=== PATIENT | female | born 1955 | race Caucasian/White ===

== ENCOUNTER 2020-05-01 14:42 | Outpatient (CLI) | payer MEDICARE, SELFPAY ==
--- NOTE | ~2020-05-01 | MM_ITS ---
EXAMINATION: MM screening cole BI w consuelo HISTORY: Screening mammogram TECHNIQUE: Craniocaudal and mediolateral oblique 3-D tomosynthesis images were obtained and synthetic 2-D images were generated. CAD analysis was submitted and interpreted. COMPARISON: No prior mammogram is available for comparison at this institution. BREAST PARENCHYMAL COMPOSITION: There are scattered areas of fibroglandular density. FINDINGS: Status post bilateral augmentation mammoplasty. There is no evidence of suspicious mass, ca lcification, or architectural distortion to suggest malignancy in either breast. There has been no betancur spicious interval change. IMPRESSION: 1. No mammographic evidence of malignancy. 2. Recommend routine screening mammography in one year. BI-RADS Category 1: Negative Reviewed, dictated and finalized at location A.
--- NOTE | ~2020-05-01 | XR_ITS ---
XR knee LT min 4V DATE: 05/01/2020 15:51 INDICATION: Bilateral knee pain TECHNIQUE: 4 views COMPARISON: None FINDINGS: Status post medial compartment joint replacement. Moderate osteopenia. No fracture or dislocation or joint effusion. No periosteal reaction or bone destruction, radiopaque intra-articular loose body or chondrocalcinosis. IMPRESSION: Osteopenia Status post medial compartment joint replacement Reviewed, dictated and finalized at location A.
--- NOTE | ~2020-05-01 | XR_ITS ---
XR knee RT min 4V DATE: 05/01/2020 15:51 INDICATION: Bilateral knee pain TECHNIQUE: 5 views COMPARISON: None FINDINGS: Status post right total knee joint replacement with patellar resurfacing. There are multiple calcified loose bodies overlying the knee joint. Diffuse osteopenia. No fracture or dislocation or significant joint effusion is evident. No periosteal reaction or bone d estruction. IMPRESSION: Status post total knee joint replacement Multiple calcified loose bodies in the knee joint Osteopenia Reviewed, dictated and finalized at location A.
== END 2020-05-01 14:43 | disposition home or self-care (01) ==
PROVIDERS: PCP Chiropractor; Visit Provider Chiropractor
DX: Z12.31 Encounter for screening mammogram for malignant neoplasm of breast (principal); M85.862 Other specified disorders of bone density and structure, left lower leg; M85.861 Other specified disorders of bone density and structure, right lower leg; M23.41 Loose body in knee, right knee; Z96.653 Presence of artificial knee joint, bilateral
CPT/HCPCS: 73564; 77063; 77067

== ENCOUNTER → 2021-01-20 10:06 | Outpatient (CLI) | payer MEDICARE, SELFPAY ==
--- NOTE | ~2021-01-20 | MR_ITS ---
. EXAMINATION: MR lumbar spine wo con DATE: 01/20/2021 11:02 INDICATION: Lumbar radiculopathy. Low back pain. TECHNIQUE: Magnetic resonance imaging (MRI) of the lumbar spine was performed without intravenous con trast. Sequences included sagittal T2-weighted FSE, sagittal T2-weighted FS FSE, sagittal T1-weighted FSE, and axial T2-weighted FSE. COMPARISON: None FINDINGS: There is 10 degrees dextroscoliosis of lumbar spine. There is 3 mm anterolisthesis of L2 on L3 and L3 on L4. Vertebral body heights are normal. There is mildly decreased disc height at L2-L3 a nd severely decreased disc height at L3-L4 and L4-L5. The distal spinal cord signal intensity is norm al. The conus medullaris is at T12. The following disc levels are specifically discussed: L1-L2: The disc is bulging. There is moderate right and mild left facet joint osteoarthritis. There i s mild right neural foraminal stenosis. There is mild central canal stenosis. L2-L3: The disc is bulging. There is severe bilateral facet joint osteoarthritis. There is mild bilat eral neural foraminal stenosis. There is mild central canal stenosis. L3-L4: The disc is bulging with superimposed left central extrusion with 14 mm superior extension to the pedicular level. There is severe bilateral facet joint osteoarthritis. There is mild right and mo derate left neural foraminal stenosis. There is mild central canal stenosis. L4-L5: The disc is bulging with superimposed left central extrusion. There is severe right and mild l eft facet joint osteoarthritis. There is moderate bilateral neural foraminal stenosis. There is mild central canal stenosis. L5-S1: The disc is bulging. There is severe right and mild left facet joint osteoarthritis. There is mild right neural foraminal stenosis. There is mild central canal stenosis. IMPRESSION: 1. Severe lumbar spondylosis. 2. Lumbar dextroscoliosis. Reviewed, dictated and finalized at location A. E ATTENDANT
== END ==
PROVIDERS: Visit Provider Nurse Practitioner Adult Health
DX: M47.26 Other spondylosis with radiculopathy, lumbar region (principal)
CPT/HCPCS: 72148

== ENCOUNTER → 2021-11-05 15:08 | Outpatient (CLI) | payer MEDICARE, SELFPAY ==
--- NOTE | ~2021-11-05 | US_ITS ---
EXAMINATION: US pelvic complete DATE: 11/05/2021 16:13 INDICATION: Postmenopausal uterine bleeding. TECHNIQUE: Multiple transabdominal sonographic images of the pelvis were obtained. COMPARISON: Lumbar spine MRI 01/20/2021 FINDINGS: The uterus measures 7.0 x 3.5 x 4.2 cm. There is a 4.4 x 2.5 cm myometrial calcification in the uteru s, consistent with a fibroid. There is no free fluid in the pelvis. The endometrial complex measures 3 mm in thickness. The ovaries are not visualized. IMPRESSION: 1. Normal endometrial complex. 2. Uterine fibroid. Reviewed, dictated and finalized at location B. 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
== END ==
PROVIDERS: PCP Chiropractor; Visit Provider Chiropractor
DX: N93.8 Other specified abnormal uterine and vaginal bleeding (principal); D25.9 Leiomyoma of uterus, unspecified
CPT/HCPCS: 76856

== ENCOUNTER → 2021-12-07 11:01 | Outpatient (CLI) | payer OTHER, SELFPAY ==
--- NOTE | ~2021-12-07 | MR_ITS ---
EXAMINATION: MR cervical spine wo con DATE: 12/07/2021 11:57 INDICATION: Unstable balance. Low back pain. TECHNIQUE: Magnetic resonance imaging (MRI) of the cervical spine was performed without intravenous c ontrast. Sequences included sagittal T2-weighted FSE, sagittal STIR FSE, sagittal T1-weighted FSE, ax ial MERGE, and axial T2-weighted FSE. COMPARISON: None FINDINGS: There is 4 mm posterior subluxation of C1 with respect to C2. The anterior arch of C1 is no t well visualized and may be small or ununited. There is 3 mm anterolisthesis of C4 on C5 and 2 mm an terolisthesis of C6 on C7 and C7 on T1. Vertebral body heights are normal. There is severely decrease d disc height at C3-C4, C5-C6, and C6-C7 and mildly decreased disc height at C4-C5. The spinal cord s ignal intensity is normal. The following disc levels are specifically discussed: C2-C3: The disc does not extend beyond the endplate margin. There is no uncovertebral joint osteoarth ritis. There is severe bilateral facet joint osteoarthritis. There is mild right neural foraminal jerry nosis. There is no central canal stenosis. C3-C4: The disc is bulging. There is moderate right and severe left uncovertebral joint osteoarthriti s. There is severe bilateral facet joint osteoarthritis. There is mild right and severe left neural f oraminal stenosis. There is mild central canal stenosis. C4-C5: The disc is bulging. There is mild bilateral uncovertebral joint osteoarthritis. There is ana re bilateral facet joint osteoarthritis. There is mild bilateral neural foraminal stenosis. There is mild central canal stenosis. C5-C6: The disc is bulging. There is severe bilateral uncovertebral joint osteoarthritis. There is se mary bilateral facet joint osteoarthritis. There is severe bilateral neural foraminal stenosis. There is mild central canal stenosis. C6-C7: The disc is bulging. There is severe bilateral uncovertebral joint osteoarthritis. There is se mary bilateral facet joint osteoarthritis. There is mild bilateral neural foraminal stenosis. There i s mild central canal stenosis. C7-T1: The disc does not extend beyond the endplate margin. There is mild bilateral uncovertebral lobo nt osteoarthritis. There is severe bilateral facet joint osteoarthritis. There is mild bilateral neur al foraminal stenosis. There is no central canal stenosis. IMPRESSION: 1. Severe cervical spondylosis. Reviewed, dictated and finalized at location A. 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
== END ==
PROVIDERS: PCP Internal Medicine; Visit Provider Neurological Surgery
DX: R26.89 Other abnormalities of gait and mobility (principal); M47.812 Spondylosis without myelopathy or radiculopathy, cervical region
CPT/HCPCS: 72141

== ENCOUNTER → 2021-12-07 11:03 | Outpatient (CLI) | payer OTHER, SELFPAY ==
--- NOTE | ~2021-12-07 | US_ITS ---
EXAMINATION: US transvaginal DATE: 12/07/2021 12:28 INDICATION: Dysfunctional uterine bleeding Comparison:Ultrasound dated 11/05/2021 TECHNIQUE: Multiple transabdominal and endovaginal sonographic images of the pelvis performed. FINDINGS: The uterus measures 6.6 x 3.4 x 4.2 cm. There is a 1.4 cm hyperechoic uterine fibroid. The endometrial complex measures 4 mm. The right ovary measures 1.3 x 1.8 x 1.7 cm and the left ovary is not visualized. There are small fol licles in each ovary. Normal doppler signal in both ovaries. There is free fluid in the pelvis posterior to the uterus. There are no abnormal masses seen on eith er side. IMPRESSION: 1. Uterine fibroid with hyperechoic echotexture measuring up to 1.4 cm. Reviewed, dictated and finalized at location B. SMAN
== END ==
PROVIDERS: Visit Provider Chiropractor
DX: N93.8 Other specified abnormal uterine and vaginal bleeding (principal); D25.9 Leiomyoma of uterus, unspecified
CPT/HCPCS: 76830

== ENCOUNTER 2022-02-08 08:33 | Outpatient (CLI) | payer OTHER, SELFPAY ==
--- NOTE | 2022-02-08 09:01 | ECHO_ITS ---
Patient Info Name: Helena Calvo Age: 67 years : 1955 Gender: Female Ht: 63 in Wt: 106 lbs BSA: 1.46 m2 HR: 71 bpm BP: 102 / 68 mmHg Technical Quality: Fair Exam Date: 02/08/2022 9:10 AM Exam Location: [facility] [place] Patient Status: Outpatient Admit Date: 02/08/2022 Staff Ordering Physician: Fidencio Obregon DO Optical Lab Technician: Teresita Amezcua RDCS Attending Provider: Fidencio Obregon DO Referring Physician: Sabas CAMPBELL; Exam Type: CA echo doppler color flow Study Info Indications R01.1 - Cardiac murmur, unspecified Complete two-dimensional, color flow and Doppler transthoracic echocardiogram is performed. Summary 1. Complete two-dimensional, color flow and Doppler transthoracic echocardiogram is performed. 2. Left ventricular chamber dimension is normal. 3. Left ventricular systolic function is normal, estimated at 55-60%. 4. There is mildly increased left ventricular wall thickness. 5. The left ventricular diastolic function is grade I diastolic dysfunction. 6. E/e' 9 is minimally elevated. 7. Global longitudinal strain is mildly abnormal at -16.3%. 8. There is moderate aortic valve sclerosis. 9. There is very mild aortic valve stenosis with a peak velocity of 173 cm/s, mean gradient of 7 mmHg, and aortic valve area of 2.3 cm2. 10. The mitral valve has moderately calcified annulus. 11. There is trace mitral valve regurgitation. 12. There is mild tricuspid valve regurgitation. 13. No pulmonary hypertension, estimated pulmonary arterial systolic pressure is 28 mmHg. 14. There is trace pulmonic regurgitation. Left Ventricle E/e' 9 is minimally elevated. Global longitudinal strain is mildly abnormal at -16.3%. Left ventricular chamber dimension is normal. Left ventricular systolic function is normal, estimated at 55-60%. There is mildly increased left ventricular wall thickness. The left ventricular diastolic function is grade I diastolic dysfunction. Right Ventricle Right ventricular systolic function is normal and with normal TAPSE 1.8 cm. Right ventricular chamber dimension is normal. Left Atria Left atrial chamber dimension is normal. Right Atria Right atrial chamber dimension is normal. Aortic Valve There is very mild aortic valve stenosis with a peak velocity of 173 cm/s, mean gradient of 7 mmHg, and aortic valve area of 2.3 cm2. The aortic valve is trileaflet. There is moderate aortic valve sclerosis. There is no aortic valve regurgitation. Pulmonic Valve There is trace pulmonic regurgitation. Mitral Valve The mitral valve has moderately calcified annulus. There is no mitral valve stenosis. There is trace mitral valve regurgitation. Tricuspid Valve There is mild tricuspid valve regurgitation. No pulmonary hypertension, estimated pulmonary arterial systolic pressure is 28 mmHg. Pericardium/Pleural There is no pericardial effusion. Inferior Vena Cava Normal inferior vena cava with >50% collapse upon inspiration consistent with normal right atrial pressure, 5 mmHg. Aorta The aortic root size at the sinus of Valsalva is normal. Left Ventricular Outflow Tract Name Value Normal LVOT 2D LVOT Diameter 2.0 cm LVOT Doppler
== END 2022-02-08 08:34 | disposition home or self-care (01) ==
PROVIDERS: Visit Provider Internal Medicine
DX: R01.1 Cardiac murmur, unspecified (principal); Z86.79 Personal history of other diseases of the circulatory system; I08.3 Combined rheumatic disorders of mitral, aortic and tricuspid valves
CPT/HCPCS: 93306

== ENCOUNTER 2022-03-25 08:20 | Outpatient (CLI) | payer OTHER, SELFPAY ==
--- NOTE | ~2022-03-25 | MM_ITS ---
EXAMINATION: MM scrn cole implant BI w consuelo HISTORY: Screening mammogram TECHNIQUE: Craniocaudal and mediolateral oblique 3-D tomosynthesis images with implant displacement a nd synthetic 2-D images were generated. Craniocaudal and mediolateral oblique views of the breasts wi thout implant displacement were obtained using full field digital mammography. CAD analysis was submi tted and interpreted. COMPARISON: 05/01/2020 BREAST PARENCHYMAL COMPOSITION: There are scattered areas of fibroglandular density. FINDINGS: There is no evidence of suspicious mass, calcification, or architectural distortion to sugg est malignancy in either breast. There has been no suspicious interval change. IMPRESSION: 1. No mammographic evidence of malignancy. 2. Recommend routine screening mammography in one year. BI-RADS Category 1: Negative Reviewed, dictated and finalized at location A.
== END 2022-03-25 08:21 | disposition home or self-care (01) ==
LOC: ANHIMG 08:22
PROVIDERS: PCP Internal Medicine; Visit Provider Internal Medicine
DX: Z12.31 Encounter for screening mammogram for malignant neoplasm of breast (principal)
CPT/HCPCS: 77063; 77067

== ENCOUNTER 2022-06-14 13:51 | Outpatient (CLI) | payer OTHER, SELFPAY ==
[2022-06-14 15:02] LABS: Basophils Percent Auto 0.2 % (0.2-1.2); Eosinophils Absolute Auto 0.3 K/mm3 (0-0.3); Eosinophils Percent Auto 2.9 % (0-4.4); Hematocrit 31.5 % (37.0-47.0); Hemoglobin 9.8 g/dL (12.0-15.0); Immature Granulocyte Absolute 0.06 K/mm3 (0.00-0.031); Immature Granulocyte Percent A 0.7 % (0-0.5); Lymphocytes Absolute Auto 1.14 K/mm3 (0.9-3.2); Lymphocytes Percent Auto 13.2 % (18.3-44.2); Mean Corpuscular HGB Conc 31.1 g/dl (32-36); Mean Corpuscular Hemoglobin 29.7 pg (26-34); Mean Corpuscular Volume 95.5 fl (80-100); Mean Platelet Volume 10.6 fl (7.4-10.4); Monocytes Absolute Auto 0.4 K/mm3 (0.1-0.6); Monocytes Percent Auto 4.6 % (2.6-8.5); Neutrophils Absolute Auto 6.8 K/mm3 (1.3-6.7); Neutrophils Percent Auto 78.4 % (45.5-73.1); Platelet Count Result 265 k/mm3 (150-375); Red Cell Distribution Width 15.8 % (11.5-14.5); White Blood Count 8.6 K/mm3 (4.5-10.0)
[2022-06-14 15:08] LABS: Alanine Aminotransferase 21 U/L (6-35); Alkaline Phosphatase 180 U/L (38-126); Anion Gap 11 mmol/L (8-16); Aspartate Amino Transferase 36 U/L (14-36); Bilirubin,Total 0.3 mg/dL (0.2-1.3); Blood Urea Nitrogen 16 mg/dL (7-17); Calcium 9.3 mg/dL (8.4-10.2); Carbon Dioxide 25 mmol/L (22-30); Chloride 100 mmol/L (98-107); Cholesterol 154 mg/dL (0-200); Estimated Glomerular Filt Rate 45; Glucose 110 mg/dL (65-110); HDL Direct 56 mg/dL; Potassium 4.1 mmol/L (3.4-5.0); Sodium 136 mmol/L (137-145); Triglycerides 122 mg/dL (<150)
[2022-06-14 15:19] LABS: LDL Cholesterol Direct 52 mg/dL
[2022-06-14 15:29] LABS: Vitamin D 25 Hydroxy 79.9 ng/mL
[2022-06-14 16:15] LABS: Folic Acid 5.9 ng/mL (2.76->20)
== END 2022-06-14 13:52 | disposition home or self-care (01) ==
PROVIDERS: PCP Internal Medicine; Visit Provider Nurse Practitioner
DX: R53.83 Other fatigue (principal); Z13.220 Encounter for screening for lipoid disorders; Z13.29 Encounter for screening for other suspected endocrine disorder; E55.9 Vitamin D deficiency, unspecified
CPT/HCPCS: 36415; 80053; 80061; 82306; 82607; 82746; 84443; 85025

== ENCOUNTER 2022-07-26 12:05 | Outpatient (CLI) | payer OTHER, SELFPAY ==
[2022-07-26 12:39] LABS: Basophils Percent Auto 0.3 % (0.2-1.2); Eosinophils Absolute Auto 0.2 K/mm3 (0-0.3); Eosinophils Percent Auto 2.4 % (0-4.4); Hematocrit 28.6 % (37.0-47.0); Hemoglobin 9.1 g/dL (12.0-15.0); Immature Granulocyte Absolute 0.03 K/mm3 (0.00-0.031); Immature Granulocyte Percent A 0.3 % (0-0.5); Lymphocytes Absolute Auto 1.61 K/mm3 (0.9-3.2); Lymphocytes Percent Auto 16.3 % (18.3-44.2); Mean Corpuscular HGB Conc 31.8 g/dl (32-36); Mean Corpuscular Hemoglobin 29.6 pg (26-34); Mean Corpuscular Volume 93.2 fl (80-100); Mean Platelet Volume 10.4 fl (7.4-10.4); Monocytes Absolute Auto 0.6 K/mm3 (0.1-0.6); Monocytes Percent Auto 5.7 % (2.6-8.5); Neutrophils Absolute Auto 7.4 K/mm3 (1.3-6.7); Platelet Count Result 244 k/mm3 (150-375); Red Blood Count 3.07 M/mm3 (4.2-5.4); Red Cell Distribution Width 16.6 % (11.5-14.5); White Blood Count 9.9 K/mm3 (4.5-10.0)
[2022-07-26 12:41] LABS: Anion Gap 9 mmol/L (8-16); Blood Urea Nitrogen 14 mg/dL (7-17); Calcium 8.9 mg/dL (8.4-10.2); Carbon Dioxide 25 mmol/L (22-30); Chloride 104 mmol/L (98-107); Estimated Glomerular Filt Rate > 60; Glucose 104 mg/dL (65-110); Potassium 4.1 mmol/L (3.4-5.0); Sodium 138 mmol/L (137-145)
[2022-07-26 14:01] LABS: Folic Acid > 20.0 ng/mL (2.76->20)
[2022-07-26 14:24] LABS: Iron 21 ug/dL (37-170)
[2022-07-26 14:28] LABS: Percent Iron Saturation 8 % (20-50)
== END 2022-07-26 12:06 | disposition home or self-care (01) ==
PROVIDERS: PCP Internal Medicine; Visit Provider Nurse Practitioner
DX: D64.9 Anemia, unspecified (principal); N18.31 Chronic kidney disease, stage 3a; E03.9 Hypothyroidism, unspecified; M05.79 Rheumatoid arthritis with rheumatoid factor of multiple sites without organ or systems involvement; M79.9 Soft tissue disorder, unspecified
CPT/HCPCS: 36415; 80048; 82607; 82728; 82746; 83540; 83550; 84443; 85025

== ENCOUNTER 2022-08-05 15:45 | Outpatient (NON) | payer OTHER, SELFPAY | END 2022-08-05 15:46 | disposition home or self-care (01) | LOC: ANHGOSHLAB 15:46 | PROVIDERS: PCP Internal Medicine; Visit Provider Internal Medicine | DX: L60.8 Other nail disorders (principal) | CPT/HCPCS: 87101; 87107; 97110 ==

== ENCOUNTER 2022-08-30 11:00 | Outpatient (RCR) | payer OTHER, SELFPAY ==
--- NOTE | 2022-07-08 11:28 | PTOPEVAL1 ---
Evaluation Information Assessment Status Evaluation Diagnosis scoliosis, dorsalgia Subjective Information chronic back pain; no recent injury to back; following care with: mc kay stitcher and neurosurgeon is seeing for neck and low back; Reported Pain Level Pain Score 3: Self Report Additional Pain Score Comments when pain comes on, have to lie down for 2 hours to ease it; sleeping is OK-on side R/L or back; also reports neck pain into UE's with numbness/ tingling; trying not to take pain meds, make sleepy and stay in her system too long; takes over the counter naproxen Oswestry self assessment functional score of 46% limitation in activity level Assessment PT Clinical Summary Helena has the diagnosis of dorsalgia; she reports chronic neck and back pain, radicular into R hip, with decreased walking, sitting and activity level with home tasks. Self assessment with Oswestry is 46% limitation in activity level. With the evaluation, she has poor spinal position with rounding and rotation--R posterior; decreased strength of trunk and hips and tightness of quad/ anterior hip B. Skilled PT services are indicated for modalities to decrease pain, therapeutic exercises to increase strength and flexiblity of trunk and hips , with education for correct posture and HEP. Plan of Care Interventions Electrical Stimulation,Hot Pack/Cold Pack,Manual Therapy,Patient/Caregiver Educati,Therapeutic Activities,Therapeutic Exercise PT Services Indicated Yes Treatment Frequency and 2x/wk for 4 weeks Duration These treatments will address the objective and functional deficits as defined above. The patient will be advanced safely and appropriately in order for the patient to progress towards his/her prior level of function. Additional exercises will be introduced and as well as a comprehensive home exercise program upon discharge, if needed, ?to ensure carryover of functional gains achieved in the clinic. This treatment plan has been reviewed and agreement upon by the patient.
--- NOTE | 2022-07-25 16:16 | PCPTNOTE ---
Patient called & cancelled scheduled appointment this date due to not being able to make it to her appointment in time.
--- NOTE | 2022-07-29 15:23 | PCPTNOTE ---
Patient called & cancelled scheduled appointment this date due to family emergency.
--- NOTE | 2022-08-02 10:21 | PTOPPROG ---
Assessment and note entered by Hanna Avery, PT Evaluation Information Assessment Status Re-evaluation Diagnosis scoliosis, dorsalgia Subjective Information Helena reports: have had a crazy week due to uncle hospitalized, have not done the exercises this past week; overall feel of my back is better; went to pain management dr- did a test for nerve block and it made the pain in her hips worse; going to get a back brace next week--custom scoliosis brace; want to continue therapy; pain range of 0-6/10: increase lower thoracic and lumbar pain with sitting 30 min, walking 1 hour, bending forward; decrease pain by changing position, lie on back with heating pad and 2 naproxen and better in about 30 min; also reports pain in R knee--s/p previous surgeries; Oswestry self assessment functional activity score with 22% limitation; also have pain on bottom of both feet--plantar fasciitis, hurt when walk; Assessment PT Clinical Summary Helena has received 5 PT sessions for back pain. She called/canceled 2 appointments due to family member hospitalized. Compared to the initial evaluation: pain rating is the same at the low rating 0/10 and decreased by 1 at the worst rating from 7 to 6/10; reported sitting, walking and time of rest to ease pain have improved; increase flexibility of L hip and trunk, without an increase in pain with movements; increased strength of trunk and hips; self assessment Oswestry improved 2%; The goals were partially achieved. Continue PT treatments to further decrease her pain and education for progression of HEP and pain management techniques. Plan of Care Interventions Electrical Stimulation,Hot Pack/Cold Pack,Manual Therapy,Neuro Re-education,Patient/Caregiver Education,Therapeutic Activities,Therapeutic Exercise PT Services Indicated Yes Treatment Frequency and 2x/wk for 4 weeks Duration These treatments will address the objective and functional deficits as defined above. The patient will be advanced safely and appropriately in order for the patient to progress towards his/her prior level of function. Additional exercises will be introduced and as well as a comprehensive home exercise program upon discharge, if needed, ?to ensure carryover of functional gains achieved in the clinic. This treatment plan has been reviewed and agreement upon by the patient.
--- NOTE | 2022-08-14 10:08 | PCPTNOTE ---
Patient called & cancelled scheduled appointment this date due to being ill.
--- NOTE | 2022-08-30 11:38 | PTOPDC ---
Assessment and note entered by Hanna Avery, PT Evaluation Information Assessment Status Discharge Diagnosis scoliosis, dorsalgia Subjective Information Helena reports: improved in that can sit at the counter and eat dinner without more pain; have a scoliosis brace now, wear 30-45 min, 3x/day, usually comfortable, but hurts little by end of wearing time; was told by dr to build up to wearing it 4 total hours/day; do some of the exercises at home; agrees to discharge from PT services; Reported Pain Level Pain Score Self Report back pain Additional Pain Score Comments pain range of 0-3/10; increase pain with extended periods of activity --with home tasks- 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 Compared to the last reevaluation: pain rating has decreased from 0-6/10 to 0-3/10; Oswestry self assessment score is 2% worse; no longer has pain with standing trunk side bending to the R and supine L hip IR motion; strength has increased slightly of hips; flexibility of hips and trunk is about the same; HEP has been progressed, but she reports sometimes do exercises. Reinforced importance of exercises. She reports she has an exercise ball and stationary bicycle at home that she will start using. The goals were partially met, Discharge PT services, and to continue with HEP. Plan of Care PT Services Indicated No
== END 2022-09-02 10:22 | disposition home or self-care (01) ==
LOC: ANHPT 11:00
PROVIDERS: PCP Internal Medicine; Referring Provider Clinical Nurse Specialist; Visit Provider Clinical Nurse Specialist
DX: M41.9 Scoliosis, unspecified (principal); M54.9 Dorsalgia, unspecified
CPT/HCPCS: 97014; 97110; 97112; 97140; 97162; G0283

== ENCOUNTER → 2022-11-12 10:03 | Outpatient (CLI) | payer OTHER, SELFPAY ==
--- NOTE | ~2022-11-12 | MR_ITS ---
MRI of the thoracic spine Clinical History: Back pain Technique: Axial T2-weighted and gradient images, and sagittal T1-weighted, T2-weighted, and STIR ada ges were acquired. Findings: No fracture or subluxation seen in the thoracic spine. Vertebral bodies maintain normal hei ght and alignment. No bone marrow signal abnormality seen. No significant disc bulge or herniation seen. No spinal canal stenosis or cord compression identified . No epidural mass or collection. No abnormal signal seen in the spinal cord. Paravertebral soft tissue s are unremarkable. Impression: No significant abnormality seen. Reviewed, dictated and finalized at location . CHIPPER Impression: No significant abnormality seen.
== END ==
PROVIDERS: PCP Internal Medicine; Visit Provider Clinical Nurse Specialist
DX: M54.6 Pain in thoracic spine (principal)
CPT/HCPCS: 72146

== ENCOUNTER 2023-01-01 07:22 | Day surgery (SDC) | payer OTHER, SELFPAY ==
[2022-12-26 10:56] VITALS: BMI 18.3
--- NOTE | 2023-01-01 08:59 | WPDHPUPDATE1 ---
History and Physical Update Update Date/Time: 01/01/23 08:59 History and Physical has been reviewed, including an updated exam of the patient. There are NO changes in the patient's condition. Risks, benefits, and alternatives have been discussed and questions answered. Patient agrees to proceed with procedure.
[2023-01-01] MEDS: TETRACAINE HCL 0.5% OPHTH SOLN 4 ML BTL 1 DROP AFFCTD EYE ×2 (10:02→10:07)
[2023-01-01 10:04] VITALS: PULSE 73; RESP 17; O2SAT 99
[2023-01-01] MEDS: BRIMONIDINE TARTRATE 0.2% OP SOLN 5 ML BTL 1 DROP AFFCTD EYE (10:14)
--- NOTE | 2023-01-01 12:32 | W.PM.PROC2 ---
Procedure Note - Detailed Date of Procedure 01/01/23 Pre-op Diagnosis Posterior Capsular Opacification-Left Eye Post-op Diagnosis Same Procedure Performed YAG Laser Capsulotomy [LEFT] eye Surgeon Shine Ott MD Anesthesia Other (Topical) Description of Procedure After appropriate discussion, consent and topical anesthesia, the patient was placed in front of the laser. All settings were checked. The laser procedure was then performed. The patient tolerated the procedure well. Power Level: [4.0] Number of Pulses: [30] Complications None Condition Stable Disposition Same day
== END 2023-01-01 10:22 | disposition home or self-care (01) ==
PROVIDERS: PCP Internal Medicine; Visit Provider Student in an Organized Health Care Education/Training Program
PROC: (CPT 66821; principal; 2023-01-01 10:15)
DX: H26.492 Other secondary cataract, left eye (principal)
CPT/HCPCS: 66821

== ENCOUNTER 2023-02-04 10:48 | Outpatient (CLI) | payer OTHER, SELFPAY ==
[2023-02-04 19:08] LABS: Basophils Absolute Auto 0.1 K/mm3 (0.0-0.1); Basophils Percent Auto 0.7 % (0.2-1.2); Eosinophils Absolute Auto 0.3 K/mm3 (0-0.3); Eosinophils Percent Auto 3.9 % (0-4.4); Hematocrit 33.6 % (37.0-47.0); Hemoglobin 10.5 g/dL (12.0-15.0); Immature Granulocyte Absolute 0.02 K/mm3 (0.00-0.031); Immature Granulocyte Percent A 0.3 % (0-0.5); Immature Reticulocyte Fraction 10.8 % (3.0-15.9); Lymphocytes Absolute Auto 1.55 K/mm3 (0.9-3.2); Lymphocytes Percent Auto 20.2 % (18.3-44.2); Mean Corpuscular HGB Conc 31.3 g/dl (32-36); Mean Corpuscular Hemoglobin 29.3 pg (26-34); Mean Corpuscular Volume 93.9 fl (80-100); Mean Platelet Volume 11.8 fl (7.4-10.4); Monocytes Absolute Auto 0.3 K/mm3 (0.1-0.6); Monocytes Percent Auto 4.4 % (2.6-8.5); Neutrophils Absolute Auto 5.4 K/mm3 (1.3-6.7); Neutrophils Percent Auto 70.5 % (45.5-73.1); Platelet Count Result 238 k/mm3 (150-375); Red Blood Count 3.58 M/mm3 (4.2-5.4); Red Cell Distribution Width 16.6 % (11.5-14.5); Reticulocyte Hemoglobin Conten 32.2 pg (28.2-35.7); Reticulocyte Percent 1.16 % (0.7-4.3); Reticulocytes Absolute 0.04 B/L (32.2-175.7); White Blood Count 7.7 K/mm3 (4.5-10.0)
[2023-02-04 19:11] LABS: Alanine Aminotransferase 16 U/L (6-35); Albumin Level 4.2 g/dL (3.5-5.1); Alkaline Phosphatase 139 U/L (38-126); Anion Gap 11 mmol/L (8-16); Aspartate Amino Transferase 29 U/L (14-36); Bilirubin,Total 0.4 mg/dL (0.2-1.3); Blood Urea Nitrogen 17 mg/dL (7-17); Calcium 9.2 mg/dL (8.4-10.2); Carbon Dioxide 25 mmol/L (22-30); Chloride 102 mmol/L (98-107); Estimated Glomerular Filt Rate 45; Glucose 81 mg/dL (65-110); Potassium 3.9 mmol/L (3.4-5.0); Sodium 138 mmol/L (137-145)
[2023-02-04 19:15] LABS: Iron 112 ug/dL (37-170)
[2023-02-04 19:39] LABS: Percent Iron Saturation 44 % (20-50)
[2023-02-04 20:12] LABS: Folic Acid > 20.0 ng/mL (2.76->20)
[2023-02-04 20:48] LABS: Free T4 Free Thyroxine Reflex 1.79 ng/dL (0.78-2.19)
[2023-02-05 06:49] LABS: Total Triiodothyronine (T3) 1.31 NG/ML (0.97-1.69)
== END 2023-02-04 10:49 | disposition home or self-care (01) ==
LOC: ANHGOSHLAB 10:50
PROVIDERS: PCP Internal Medicine; Visit Provider Clinical Nurse Specialist
DX: M06.9 Rheumatoid arthritis, unspecified (principal); D64.9 Anemia, unspecified; E03.9 Hypothyroidism, unspecified
CPT/HCPCS: 36415; 80053; 82607; 82728; 82746; 83540; 83550; 84439; 84443; 84480; 85025; 85046

== ENCOUNTER 2023-02-05 09:23 | Day surgery (SDC) | payer OTHER, SELFPAY ==
[2023-01-30 09:36] VITALS: BMI 18.1
--- NOTE | 2023-02-05 08:08 | WPDHPUPDATE1 ---
History and Physical Update Update Date/Time: 02/05/23 08:08 History and Physical has been reviewed, including an updated exam of the patient. There are NO changes in the patient's condition. Risks, benefits, and alternatives have been discussed and questions answered. Patient agrees to proceed with procedure.
[2023-02-05] MEDS: TETRACAINE HCL 0.5% OPHTH SOLN 4 ML BTL 1 DROP AFFCTD EYE ×3 (10:06→10:16)
[2023-02-05 10:08] VITALS: BP 118/78; PULSE 72; RESP 16; TEMP 37.1; O2SAT 100
[2023-02-05 10:14] VITALS: BMI 18.2
[2023-02-05] MEDS: BRIMONIDINE TARTRATE 0.2% OP SOLN 5 ML BTL 1 DROP AFFCTD EYE (10:24)
--- NOTE | 2023-02-05 12:00 | W.PM.PROC2 ---
Procedure Note - Detailed Date of Procedure 02/05/23 Pre-op Diagnosis other secondary cataract right eye Post-op Diagnosis Same Procedure Performed YAG Laser Capsulotomy [right] eye Surgeon Shine Ott MD Anesthesia Local Description of Procedure After appropriate discussion, consent and topical anesthesia, the patient was placed in front of the laser. All settings were checked. The laser procedure was then performed. The patient tolerated the procedure well. Power Level: [3.0mJ] Number of Pulses: [15] Complications None Condition Stable Disposition Same day
== END 2023-02-05 10:32 | disposition home or self-care (01) ==
PROVIDERS: PCP Internal Medicine; Visit Provider Student in an Organized Health Care Education/Training Program
PROC: (CPT 66821; principal; 2023-02-05 10:20)
DX: H26.491 Other secondary cataract, right eye (principal)
CPT/HCPCS: 66821

== ENCOUNTER 2023-02-25 14:30 | Outpatient (RCR) | payer OTHER, SELFPAY ==
--- NOTE | 2022-12-16 16:24 | PTOPEVAL1 ---
Assessment and note entered by Eloy Palmer, PT Evaluation Information Assessment Status Evaluation Diagnosis scoliosis, radiculopathy, pain in thoracic spine Onset chronic Subjective Information Patient has chronic back pain from scoliosis. She reports it is all centralized with no radiating symptoms. She also reports a new diagnosis of RA. (Physical therapist recommends seeing occupational therapy as patient reports unable to untwist bottle caps or open soda cans). She has been using a TLSO brace since August of last year , but she reports she does not wear as much as she is supposed to along with also not doing her exercises. Reported Pain Level Pain Score 2: Self Report Additional Pain Score Comments reports sometimes has a catch when standing up straight after bending over Assessment PT Clinical Summary Helena is a 67 year old female coming into the clinic with a diagnosis of thoracic back pain, secondary to scoliosis. She reports no radiating symptoms. She has weakness in her hips and core to go with tightness of her hamstrings and quads. Recommend working on her deficits along with balance activities while also doing aquatic and manual therapy along with modalities for increased pain control. Plan of Care Interventions Aquatic Therapy,Electrical Stimulation,Gait Training,Hot Pack/Cold Pack,Manual Therapy,Neuro Re-education,Patient/Caregiver Education,Therapeutic Activities,Therapeutic Exercise,Ultrasound PT Services Indicated Yes Treatment Frequency and 1-2x/wk for 4 weeks Duration These treatments will address the objective and functional deficits as defined above. The patient will be advanced safely and appropriately in order for the patient to progress towards his/her prior level of function. Additional exercises will be introduced and as well as a comprehensive home exercise program upon discharge, if needed, ?to ensure carryover of functional gains achieved in the clinic. This treatment plan has been reviewed and agreement upon by the patient.
--- NOTE | 2023-01-03 15:29 | OTOPEVAL1 ---
Assessment and note entered by Garo Hirsch, HECTOR/Iwona, CHT Evaluation Information Assessment Status Evaluation Diagnosis Hand pain Onset Chronic Subjective Information Patient reports hand weakness, pain, and stiffness that limits her ability to open a bottle of water , can of soda, tupperware, etc. She states she has a hard time holding a pen and writing. 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 She will benefit from skilled OT for modalities for pain and stiffness, manual therapy, functional therapeutic exercise, strengthening, adaptive ADL techniques/devices, and HEP instruction/ progression to facilitate optimal functional hand use. Plan of Care Interventions Therapeutic Exercise,Manual Therapy,Therapeutic Activities,Hot Pack/Cold Pack,Self-Care/Home Management,Ultrasound,Paraffin OT Services Indicated Yes Treatment Frequency and 2x/week for 5 weeks Duration Patient is out of town until 01/15/23. These treatments will address the objective and functional deficits as defined above. The patient will be advanced safely and appropriately in order for the patient to progress towards his/her prior level of function. Additional exercises will be introduced and as well as a comprehensive home exercise program upon discharge, if needed, ?to ensure carryover of functional gains achieved in the clinic. This treatment plan has been reviewed and agreement upon by the patient.
--- NOTE | 2023-01-16 17:44 | PTOPREEVAL ---
Assessment and note entered by Eloy Palmer, PT Evaluation Information Assessment Status Re-evaluation Diagnosis Scoliosis with radiculopathy symptoms Onset chronic Subjective Information Patient report she has been doing well with her exercises besides having trouble with sidelying hip abduction and she has been wearing her brace more. She did have a fall while visiting her brother [place] [facility] [place] She is looking forward to getting in the pool for aquatic therapy. Reported Pain Level Pain Score 2: Self Report Pain Score 0: Self Report Assessment PT Clinical Summary Helena is a 68 year old female coming into the clinic with thoracic pain secondary to scoliosis. She has made improvement in her lower body strengthening and flexibility so along with continuing on her hip abductors will start working on scapular strengthening and thoracic stretching although at the end of the day the scoliosis at this time is set and prognosis is guarded. Plan of Care Interventions Aquatic Therapy,Electrical Stimulation,Gait Training,Hot Pack/Cold Pack,Manual Therapy,Neuro Re-education,Patient/Caregiver Education,Therapeutic Activities,Therapeutic Exercise,Ultrasound Other Interventions taping PT Services Indicated Yes Treatment Frequency and 2x/wk for 8 visits Duration These treatments will address the objective and functional deficits as defined above. The patient will be advanced safely and appropriately in order for the patient to progress towards his/her prior level of function. Additional exercises will be introduced and as well as a comprehensive home exercise program upon discharge, if needed, ?to ensure carryover of functional gains achieved in the clinic. This treatment plan has been reviewed and agreement upon by the patient.
--- NOTE | 2023-01-20 16:14 | PCPTNOTE ---
pt called and canceled due to not feeling well;
--- NOTE | 2023-02-07 15:24 | OTOPDC ---
Assessment and note entered by Garo Hirsch, HECTOR/Iwona, CHT Evaluation Information Assessment Status Discharge Diagnosis Hand pain Onset Chronic Subjective Information Patient reports improved ROM with her hands. She reports she has learned new techniques on how to adapt ADLs to make tasks easier for her. She states she is having an easier time with opening sodas and tupperware and holding a pen and writing . She is very compliant with all materials. Reported Pain Level Pain Score 1/10, left index finger Additional Pain Score Comments Overall patient is having less pain. Most of the time having no pain. 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 OT re- assessment completed today and patient has made great progress with therapy. Functional ROM of bilateral hands has improved and her strength is also improving. She has learned a lot of adaptive techniques and joint protection techniques to use during ADLs. She is happy with her improved function and strength and is in agreement with discharge. No further skilled OT indicated at this time. Plan of Care OT Services Indicated No
--- NOTE | 2023-02-25 16:40 | PTOPDC ---
Assessment and note entered by Eloy Palmer, PT Evaluation Information Assessment Status Discharge Diagnosis Scoliosis, radiculopathy, thoracic spine Onset chronic Subjective Information Patient just coming back from 10 days in [place], reports increased pain secondary to the plane ride , riding in the car for extended periods of time, and walking on cobblestone. Reports a prior fall while in [place] visit[place] her brother. Reported Pain Level Pain Score 4: Self Report Additional Pain Score Comments reports wearing her brace, but preferring the sounds like LSO brace compared to the TLSO brace. Assessment PT Clinical Summary Helena is a 68 year old female coming into the clinic with a diagnosis of scoliosis with radiculopathy. Patient was evaluated on Dec 16 and attended 12 visits with 2 week plus long absences secondary to trips with family. Patient appears to be in a catch 22 where she wants to do more strengthening, but her back pain will increase which then limits her participation with therapy and feels weaker. That being said she met all strength goals, but did not meet pain goals. Patient's condition is chronic and physical therapist believes any gains or pain relief is short term. Discharge from skilled physical therapy. Plan of Care PT Services Indicated Yes
== END 2023-03-03 09:51 | disposition home or self-care (01) ==
LOC: ANHPT 14:30
PROVIDERS: PCP Internal Medicine; Visit Provider Clinical Nurse Specialist
DX: M41.9 Scoliosis, unspecified (principal); M54.12 Radiculopathy, cervical region; M54.6 Pain in thoracic spine
CPT/HCPCS: 97018; 97110; 97112; 97113; 97140; 97161; 97165; 97530

== ENCOUNTER → 2023-04-11 13:03 | Outpatient (CLI) | payer OTHER, SELFPAY ==
--- NOTE | ~2023-04-11 | MR_ITS ---
EXAMINATION: MR lumbar spine wo/w con DATE: 04/11/2023 14:05 INDICATION: Lumbar spondylosis TECHNIQUE: Magnetic resonance imaging (MRI) of the lumbar spine was performed without and with 15 mL Multihance intravenous contrast. Sequences included sagittal T2-weighted FSE, sagittal T2-weighted FS FSE, and sagittal and axial T1-weighted FSE. Postcontrast sequences included axial T2-weighted FSE, sagittal T1-weighted FSE, and axial and sagittal T1-weighted FS FSE. COMPARISON: None FINDINGS: 25 degree lumbar dextroscoliosis. 2 mm retrolisthesis L1 on L2, 3 mm anterolisthesis L2 on L3 and 2 m m anterolisthesis L3 on L4. Severe left-sided predominant disc height loss with degenerative endplate remodeling L3-L4 resulting in mild left-sided vertebral body height loss at both L3 and L4. Vertebra l body heights are otherwise normal. There is heterogeneous pattern of red and yellow marrow signal a long with mild fibrovascular degenerative endplate changes at both L3-L4 and L4-L5. Additional more d iffuse severe disc height loss with degenerative endplate changes at L4-L5. Mild to moderate disc hei ght loss with right-sided predominance at L5-S1 and with left-sided predominance at L2-L3. Mild disc height loss at T10-T11, T11-T12 and L1-L2. The conus medullaris terminates at T12. There is normal si gnal in the caudal spinal cord. There is prominent likely reactive joint centered marrow edema and en hancement at the right L5-S1 facet joint where there is severe osteoarthritis. There is additional ed cece and enhancement associated with a fracture extending across the S4 vertebral body as well as slig htly cephalad at the left sacral ala at the level of S3. No other abnormally enhancing lesions identi fied. Paravertebral soft tissues are unremarkable. The following disc levels are specifically discuss ed: T12-L1: Disc is mildly bulging. There is mild right and minimal left facet joint osteoarthritis. Ther e is no neural foraminal stenosis. There is minimal central canal stenosis. L1-L2: Disc is mildly bulging with superimposed right subarticular zone disc protrusion. There is mil d left and moderate right facet joint osteoarthritis. There is mild bilateral neural foraminal stenos is. There is mild central canal stenosis. L2-L3: Disc is bulging with superimposed annular fissure and small left paracentral to foraminal zone disc extrusion with disc material extending couple millimeters cephalad to the level of the inferior endplate of L2. There is severe bilateral facet joint osteoarthritis. There is mild right and mild t o moderate left neural foraminal stenosis. There is mild to moderate central canal stenosis with mild stenosis of the left and right lateral recesses. L3-L4: Disc is bulging with annular fissure and no significant change in a left paracentral disc extr usion with disc material extending up to 14 mm cephalad to the level of the inferior endplate of L3. There is hypertrophy of the ligamentum flavum. There is severe bilateral facet joint osteoarthritis. There is mild to moderate right and moderate left neural foraminal stenosis. There is mild central ca nal stenosis. L4-L5: Disc is bulging with superimposed central to left foraminal zone disc extrusion with disc mate rial extending up to 8 mm cephalad to the level of the inferior endplate of L4. There is hypertrophy of the ligamentum flavum. There is severe right and moderate left facet joint osteoarthritis. There is moderate left and moderate to severe right neural foraminal stenosis. There is mild central canal stenosis. L5-S1: Disc is bulging with annular fissure and superimposed right foraminal zone disc extrusion with disc material extending up to 4 mm cephalad to the level of the inferior endplate of L5. There is se mary right and moderate left facet joint osteoarthritis. There is there is mild left and moderate to severe right neural foraminal stenosis. There is mil
--- NOTE | ~2023-04-11 | XR_ITS ---
EXAMINATION: XR lumbar spine min 4V DATE: 04/11/2023 14:51 INDICATION: Lumbar spondylosis TECHNIQUE: Standing anteroposterior, lateral in neutral, flexion and extension and coned-down lateral lumbosacral views of the lumbar spine were obtained. COMPARISON: CT and MRI studies dated 04/11/2023 FINDINGS: 25 degrees lumbar dextroscoliosis. 3 mm retrolisthesis L2 on L3 which remains unchanged with flexion or extension. Severe left-sided disc height loss at L3-L4 with associated degenerative endplate remod eling resulting in mild left-sided vertebral body height loss at both L3 and L4. Vertebral body heigh ts are otherwise normal. Additional severe right-sided disc height loss at L4-L5, moderate disc heigh t loss at L5-S1 and mild left-sided disc height loss at T12-L1 and L1-L2 as well as a few levels in t he lower thoracic spine. Nondisplaced likely insufficiency fracture extending across S4 vertebral bod y and at the right sacral ala are poorly appreciated on the current study due to osteopenia. Coarse r eticular opacities at the bilateral lung bases which in acute setting could represent pulmonary edema or more chronic interstitial lung disease. IMPRESSION: 1. Moderate lumbar dextro scoliosis with severe spondylosis. 2. Nondisplaced sacral insufficiency fractures better appreciated on prior CT and MRI. Reviewed, dictated and finalized at location A. IMPRESSION: 1. Moderate lumbar dextro scoliosis with severe spondylosis. 2. Nondisplaced sacral insufficiency fractures better appreciated on prior CT a nd MRI.
--- NOTE | ~2023-04-11 | CT_ITS ---
EXAMINATION: CT lumbar spine wo con DATE: 04/11/2023 13:31 INDICATION: Lumbar spondylosis. Low back pain. TECHNIQUE: Computed tomography (CT) of the lumbar spine was performed without intravenous contrast. A utomated exposure control and iterative reconstruction technique were employed. The dose-length produ ct was 183.23 mGy-cm. COMPARISON: Lumbar spine MRI 04/11/2023 FINDINGS: There is 24 degrees dextroscoliosis of lumbar spine. There is 3 mm anterolisthesis of L2 on L3. Vertebral body heights are normal. There is a transverse fracture of the inferior sacrum at L4, likely subacute. There is mildly decreased disc height at L1-L2 and L2-L3, severely decreased disc he ight at L3-L4 and L4-L5, and moderately decreased disc height at L5-S1. The following disc levels are specifically discussed: L1-L2: The disc is bulging. There is mild bilateral facet joint osteoarthritis. There is mild right n eural foraminal stenosis. There is mild central canal stenosis. L2-L3: Disc is bulging. There is severe bilateral facet joint osteoarthritis. There is mild right and moderate left neural foraminal stenosis. There is mild central canal stenosis. L3-L4: The disc is bulging. There is severe bilateral facet joint osteoarthritis. There is mild right and moderate left neural foraminal stenosis. There is mild central canal stenosis. L4-L5: The disc is bulging. There is severe right and moderate left facet joint osteoarthritis. There is moderate right and mild left neural foraminal stenosis. There is mild central canal stenosis. L5-S1: The disc is bulging. There is severe right and moderate left facet joint osteoarthritis. There is moderate right and mild left neural foraminal stenosis. There is mild central canal stenosis. IMPRESSION: 1. Severe lumbar spondylosis. 2. Lumbar dextroscoliosis. Reviewed, dictated and finalized at location A.
== END ==
PROVIDERS: PCP Internal Medicine; Visit Provider Neurological Surgery
DX: M47.816 Spondylosis without myelopathy or radiculopathy, lumbar region (principal); M41.86 Other forms of scoliosis, lumbar region; M84.48XD Pathological fracture, other site, subsequent encounter for fracture with routine healing
CPT/HCPCS: 72110; 72131; 72158; A9577

== ENCOUNTER 2023-05-29 11:15 | Outpatient (CLI) | payer OTHER, SELFPAY ==
[2023-05-29 11:31] LABS: Basophils Absolute Auto 0.1 K/mm3 (0.0-0.1); Basophils Percent Auto 0.8 % (0.2-1.2); Eosinophils Absolute Auto 0.3 K/mm3 (0-0.3); Eosinophils Percent Auto 3.7 % (0-4.4); Hematocrit 34.6 % (37.0-47.0); Hemoglobin 11.4 g/dL (12.0-15.0); Immature Granulocyte Absolute 0.02 K/mm3 (0.00-0.031); Immature Granulocyte Percent A 0.3 % (0-0.5); Lymphocytes Absolute Auto 1.62 K/mm3 (0.9-3.2); Lymphocytes Percent Auto 22.9 % (18.3-44.2); Mean Corpuscular HGB Conc 32.9 g/dl (32-36); Mean Corpuscular Hemoglobin 30.6 pg (26-34); Mean Corpuscular Volume 92.8 fl (80-100); Mean Platelet Volume 10.7 fl (7.4-10.4); Monocytes Absolute Auto 0.4 K/mm3 (0.1-0.6); Monocytes Percent Auto 5.2 % (2.6-8.5); Neutrophils Absolute Auto 4.8 K/mm3 (1.3-6.7); Neutrophils Percent Auto 67.1 % (45.5-73.1); Platelet Count Result 241 k/mm3 (150-375); Red Blood Count 3.73 M/mm3 (4.2-5.4); Red Cell Distribution Width 16.2 % (11.5-14.5); White Blood Count 7.1 K/mm3 (4.5-10.0)
[2023-05-29 12:57] LABS: Alanine Aminotransferase 23 U/L (6-35); Albumin Level 4.8 g/dL (3.5-5.1); Alkaline Phosphatase 117 U/L (38-126); Anion Gap 9 mmol/L (8-16); Aspartate Amino Transferase 32 U/L (14-36); Bilirubin,Total 0.5 mg/dL (0.2-1.3); Blood Urea Nitrogen 22 mg/dL (7-17); Carbon Dioxide 28 mmol/L (22-30); Chloride 102 mmol/L (98-107); Estimated Glomerular Filt Rate 55; Glucose 106 mg/dL (65-110); Lactate Dehydrogenase 242 U/L (120-246); Potassium 4.1 mmol/L (3.4-5.0); Sodium 139 mmol/L (137-145)
[2023-05-29 14:18] LABS: Folic Acid 13.6 ng/mL (2.76->20)
[2023-05-29 20:37] LABS: Iron 71 ug/dL (37-170)
[2023-05-29 20:51] LABS: Percent Iron Saturation 24 % (20-50)
[2023-06-01 11:04] LABS: Erythropoietin (EPO) 20.7 mIU/mL (2.6-18.5)
[2023-06-04 22:45] LABS: Soluble Transferrin Receptor 1.22 mg/L (0.76-1.76)
== END 2023-05-29 11:16 | disposition home or self-care (01) ==
LOC: ANHLAB 11:17
PROVIDERS: PCP Internal Medicine; Visit Provider Internal Medicine Hematology & Oncology
DX: D64.9 Anemia, unspecified (principal)
CPT/HCPCS: 36415; 80053; 82607; 82668; 82728; 82746; 83540; 83550; 83615; 84238; 85025

== ENCOUNTER → 2023-06-14 10:53 | Outpatient (CLI) | payer OTHER, SELFPAY ==
--- NOTE | ~2023-06-14 | MR_ITS ---
MRI of the cervical spine Clinical History: Pain Technique: Axial T2-weighted and gradient images, and sagittal T1-weighted, T2-weighted, and STIR ada ges were acquired. Findings: No acute fracture seen. There is 4 mm anterolisthesis of C4 over C5. There is advanced dege nerative disc narrowing at C5-C6, C6-C7, and C3-C4. No suspicious bone marrow signal abnormality seen . At C2-C3, there is no disc bulge or herniation. No spinal canal stenosis or cord compression. There i s mild facet arthropathy probable minimal bilateral neural foraminal narrowing. At C3-C4, there is advanced degenerative disc narrowing. Disc osteophyte complex is present, along wi th left facet arthropathy, resulting in severe left neural foraminal narrowing. Right neural foramen is probably minimally narrowed, with mild right facet arthropathy. No prashanth central canal stenosis or cord compression. At C4-C5, there is minimal disc osteophyte complex. There is mild canal stenosis without prashanth cord c ompression. There is mild facet arthropathy bilaterally with preservation of neural foramina. At C5-C6, there is mild disc bulge. No prashanth spinal canal stenosis or cord compression. There is prob able bilateral neural foraminal narrowing, right worse than left. At C6-C7, there is mild disc bulge. No spinal canal stenosis or cord compression. Bilateral neural fo ramina are preserved. No abnormal signal seen in the spinal cord. Paravertebral soft tissues are unremarkable. Impression: 4 mm anterolisthesis of C4 over C5. Moderate degenerative spondylosis at C3-C4. Additional mild degenerative changes in the remainder of the cervical spine. Reviewed, dictated and finalized at [facility]. Impression: 4 mm anterolisthesis of C4 over C5. Moderate degenerative spondylosis at C3-C4. Additional mild degenerative changes in the remainder of the cervical spine.
== END ==
PROVIDERS: PCP Internal Medicine; Visit Provider Neurological Surgery
DX: M41.9 Scoliosis, unspecified (principal); M47.892 Other spondylosis, cervical region; M50.30 Other cervical disc degeneration, unspecified cervical region
CPT/HCPCS: 72141

== ENCOUNTER → 2023-07-07 14:06 | Outpatient (CLI) | payer OTHER, SELFPAY ==
--- NOTE | ~2023-07-07 | XR_ITS ---
EXAMINATION: XR lumbar spine 2-3V DATE: 07/07/2023 14:59 INDICATION: Radiculopathy, lumbar spine. TECHNIQUE: 3 views of lumbar spine on 4 radiographs were obtained. COMPARISON: Lumbar spine radiograph 04/11/2023, CT 04/11/2023 FINDINGS: There is 23 degrees dextroscoliosis of lumbar spine. There is 3 mm anterolisthesis of L2 on L3 and L3 on L4. Vertebral body heights are normal. There is mildly decreased disc height at L1-L2 a nd L2-L3 and severely decreased disc height from L3-L4 through L5-S1. There is multilevel severe face t joint osteoarthritis. Surgical clips in the right upper quadrant are likely from cholecystectomy. IMPRESSION: 1. Severe lumbar spondylosis. 2. Lumbar dextroscoliosis. Reviewed, dictated and finalized at location E.
== END ==
PROVIDERS: PCP Internal Medicine; Referring Provider Neurological Surgery; Visit Provider Nurse Practitioner Family
DX: M47.896 Other spondylosis, lumbar region (principal)
CPT/HCPCS: 72100

== ENCOUNTER 2023-08-19 14:29 | Outpatient (CLI) | payer OTHER, SELFPAY ==
--- NOTE | ~2023-08-19 | XR_ITS ---
Left Hand Technique: PA, oblique, and lateral views were obtained. Clinical History: Stiffness Findings: No acute fracture seen. Possible scapholunate interval widening. Joint spaces are preserved . Soft tissues are unremarkable. Impression: No acute fracture. Suspected scapholunate interval widening. Recommend dedicated wrist x-rays to better evaluate for sca pholunate dissociation. Reviewed, dictated and finalized at location . Impression: No acute fracture. Suspected scapholunate interval widening. Recommend dedicated wrist x-rays to b tri evaluate for scapholunate dissociation.
--- NOTE | ~2023-08-19 | XR_ITS ---
Right Hand Technique: PA, oblique, and lateral views were obtained. Clinical History: Stiffness Findings: No acute fracture seen. There is scapholunate interval widening. There is mild degenerative change of the interphalangeal joint of the thumb.. Soft tissues are unremarkable. Impression: Scapholunate interval widening is consistent with underlying scapholunate ligament tear. Dedicated wr ist x-rays can be performed as indicated for further evaluation. Mild degenerative change of the interphalangeal joint of the thumb. Reviewed, dictated and finalized at location M. Impression: Scapholunate interval widening is consistent with underlying scapholunate ligam ent tear. Dedicated wrist x-rays can be performed as indicated for further eval uation. Mild degenerative change of the interphalangeal joint of the thumb.
== END 2023-08-19 14:30 | disposition home or self-care (01) ==
PROVIDERS: PCP Internal Medicine; Visit Provider Plastic Surgery
DX: M18.11 Unilateral primary osteoarthritis of first carpometacarpal joint, right hand (principal); M65.30 Trigger finger, unspecified finger
CPT/HCPCS: 73130

== ENCOUNTER 2023-09-04 14:30 | Outpatient (RCR) | payer OTHER, SELFPAY ==
--- NOTE | 2023-06-11 11:44 | OTOPEVAL1 ---
Assessment and note entered by Garo Hirsch, HECTOR/Iwona, CHT Evaluation Information Assessment Status Evaluation Diagnosis M49.646 Pain in unspecified finger Subjective Information Patient reports gross weakness of her hands. Reporting difficulties starting the car, squeezing the gear shift, pulling/operating the shower faucet, opening water bottles without adaptive equipment. Reports everything is difficult for me . States that the other day she felt a sudden onset of pain in the left thumb and then she could no longer bend at the IP joint. States she has been having difficulty with buttons and zippers since then. She is scheduled to have a cervical spine MRI in a few days, 06/14/23, to see if this gross weakness is coming from the neck. She then will continue to follow up with her neurologist for this. Reported Pain Level Pain Score 0: Self Report Assessment OT Clinical Summary Patient referred to outpatient OT with a decline in use of her hands. She is familiar to this clinic as she was seen for a month in Dec-January 2023 for the same difficulties. She has been working on her HEP since, but reports that her hands continue to not be functional. She has a cervical spine MRI in a few days, which will hopefully tell us more. She presents with gross weakness of the hands as well decreased functional ROM. She does have arthritic changes in the fingers and especially in the thumbs that restrict use as well. Furthermore, she has suddenly lost the ability to flex the IP of the left thumb, which is concerning. She may benefit from further imaging here to rule out an attritional rupture of the flexor pollicis longus tendon. Skilled OT indicated for therapeutic exercise and activities, modalities, manual therapy, and HEP instruction/ progression to facilitate optimal functional use of her hands. Plan of Care Interventions Therapeutic Exercise,Manual Therapy,Therapeutic Activities,Ultrasound,Paraffin OT Services Indicated Yes Treatment Frequency and 1x/week for 4 weeks. Duration To begin week of 06/23. These treatments will address the objective and functional deficits as defined above. The patient will be advanced safely and appropriately in order for the patient to progress towards his/her prior level of function. Additional exercises will be introduced and as well as a comprehensive home exercise program upon discharge, if needed, ?to ensu
--- NOTE | 2023-06-11 11:45 | OPREHPOC ---
Outpatient Therapy Plan of Care This is a Multidisciplinary Plan of Care that may contain components documented by all disciplines (PT, OT, and ST.) OT Problem 1 OT Problem #1 Knowledge Deficit OT Goal 1 Goal 1. Patient to be independent with instructed materials. Target Visit 5 OT Problem 2 OT Problem #2 Impaired Strength OT Goal 1 Goal 1. 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 2. Patient to increase right production staff worker strength to 30 lbs.
--- NOTE | 2023-06-17 13:34 | OPREHPOC ---
Outpatient Therapy Plan of Care This is a Multidisciplinary Plan of Care that may contain components documented by all disciplines (PT, OT, and ST.) PT Problem 1 PT Problem #1 Knowledge Deficit PT Goal 1 Goal Indpendent with HEP Target Visit 16 PT Problem 2 PT Problem #2 Impaired Strength PT Goal 1 Goal 4+/5 ODELL hip abduction and extension Target Visit 16 PT Problem 3 PT Problem #3 Impaired Balance PT Goal 1 Goal tandem stance with eyes open but no UE support 30 seconds Target Visit 8 PT Goal 2 Goal tandem stance eyes closed no UE support x 30 seconds PT Problem 4 PT Problem #4 Impaired Gait PT Goal 1 Goal Patient to report feeling comfortable walking outside. Target Visit 16 OT Problem 1 OT Problem #1 Knowledge Deficit OT Goal 1 Goal 1. Patient to be independent with instructed materials. Target Visit 5 OT Problem 2 OT Problem #2 Impaired Strength OT Goal 1 Goal 1. 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 2. Patient to increase right automobile mechanic helper strength to 30 lbs.
--- NOTE | 2023-06-17 13:34 | PTOPEVAL1 ---
Assessment and note entered by Eloy Palmer, PT Evaluation Information Assessment Status Evaluation Diagnosis Lumbar Spondylosis Subjective Information Patient reports that she feels like she has decreased balance on uneven terrain along with weakness in her legs. Patient is concerned about being able to go to [facility] in March 2024. The patient reports she has spinal stenosis and therapist has talked to patient about that may be the cause of her weakness. The patient also states she will not being doing any surgeries on her back if the weakness is related to the spinal stenosis and she just got an MRI of her neck, but does not know the results. Reported Pain Level Pain Score 0: Self Report Assessment PT Clinical Summary Helena is a 68 year old female coming into the clinic with a diagnosis of lumbar spondylosis. She has decreased strength in her hip extension, abduction to go with trouble with dynamic standing balance. Physical therapy will work on improving balance and strengthening her hips which should allow her to walk more comfortably over uneven terrain. Plan of Care Interventions Gait Training,Manual Therapy,Neuro Re-education, Patient/Caregiver Education,Therapeutic Activities, Therapeutic Exercise,Ultrasound Other Interventions cupping, taping, IASTM PT Services Indicated Yes Treatment Frequency and 2x/wk for 16 visits Duration These treatments will address the objective and functional deficits as defined above. The patient will be advanced safely and appropriately in order for the patient to progress towards his/her prior level of function. Additional exercises will be introduced and as well as a comprehensive home exercise program upon discharge, if needed, ?to ensure carryover of functional gains achieved in the clinic. This treatment plan has been reviewed and agreement upon by the patient.
--- NOTE | 2023-07-18 11:10 | OPREHPOC ---
Outpatient Therapy Plan of Care This is a Multidisciplinary Plan of Care that may contain components documented by all disciplines (PT, OT, and ST.) PT Problem 1 PT Problem #1 Knowledge Deficit PT Goal 1 Goal Independent with HEP Target Visit 16 Progress Met PT Problem 2 PT Problem #2 Impaired Strength PT Goal 1 Goal 4+/5 ODELL hip abduction and extension Target Visit 16 Progress Partially Met Comment Progressing but still significant weakness noted PT Problem 3 PT Problem #3 Impaired Balance PT Goal 1 Goal tandem stance with eyes open but no UE support 30 seconds Target Visit 8 Progress Partially Met PT Goal 2 Goal tandem stance eyes closed no UE support x 30 seconds Progress Partially Met PT Problem 4 PT Problem #4 Impaired Gait PT Goal 1 Goal Patient to report feeling comfortable walking outside. Target Visit 16 Progress Partially Met Comment She has been walking more independently but does not feels she has the confidence and balance on uneven surfaces. PT Goal 2 Goal Patient will demonstrate ability to ambulate independent of AD on variable surfaces for 500' without LOB Target Visit 16 Comment New Goal OT Problem 1 OT Problem #1 Knowledge Deficit OT Goal 1 Goal 1. Patient to be independent with instructed materials. Target Visit 5 OT Problem 2 OT Problem #2 Impaired Strength OT Goal 1 Goal 1. Patient to increase left firer helper strength to 20 lbs. 2. Patient to increase right firer helper strength to 30 lbs.
--- NOTE | 2023-07-18 11:11 | PTOPPROG ---
Assessment and note entered by Ren Chaudhary, PT Evaluation Information Assessment Status Progress Diagnosis Lumbar Spondylosis Subjective Information Patient reports that she feels like she has decreased balance on uneven terrain along with weakness in her legs. Patient is concerned about being able to go to [employer] in March 2024. The patient reports she has spinal stenosis and therapist has talked to patient about that may be the cause of her weakness. The patient also states she will not being doing any surgeries on her back if the weakness is related to the spinal stenosis and she just got an MRI of her neck, but does not know the results. Assessment PT Clinical Summary Patient has seen strength, pain, and confidence improvement with gait and mobility but still lacks full ability to handle uneven surfaces safely. She will continue to benefit from skilled therapy with gait as the emphasis and continued hip strengthening to improve lateral stability with ADLs. We will emphasize standing stability, balance, and gait moving forward now that pain is improved and patient is capable of more aggressive progression. Plan of Care Interventions Gait Training,Manual Therapy,Neuro Re-education, Patient/Caregiver Education,Therapeutic Activities, Therapeutic Exercise,Ultrasound Other Interventions cupping, taping, IASTM PT Services Indicated Yes Treatment Frequency and 1-2x/week for 4 weeks Duration These treatments will address the objective and functional deficits as defined above. The patient will be advanced safely and appropriately in order for the patient to progress towards his/her prior level of function. Additional exercises will be introduced and as well as a comprehensive home exercise program upon discharge, if needed, ?to ensure carryover of functional gains achieved in the clinic. This treatment plan has been reviewed and agreement upon by the patient.
--- NOTE | 2023-07-21 14:40 | OTOPPROG ---
Assessment and note entered by Garo Hirsch, ISELAR/Iwona, CHT Evaluation Information Assessment Status Progress Diagnosis M49.646 Pain in unspecified finger Subjective Information Patient reporting continued difficulties starting the car, squeezing the gear shift, pulling/ operating the shower faucet, opening water bottles without adaptive equipment. She has been working on her hand ROM and strengthening HEP daily. Patient continues to have no active IP flexion of the left thumb. 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 Continue to recommend she follows up with MD for this. At the start of care she was unable to make a fist with the left hand. Today she is able to touch finger tips to the palm, with the exception of the ring finger, which is 1 cm away from touching the palm. Right hand ROM is WFL. Right venetian blind mechanic strength improved by 9 lbs. and is now measuring 34 lbs. Left venetian blind mechanic strength improved by 6 lbs. and is now measuring 20 lbs. Functional fine motor coordination, as measured by the 9-hole peg test, improved by 20 seconds with the left hand. She is completing gross UE strengthening program with 1 lb free weights. Assessment OT Clinical Summary Patient referred to outpatient OT with a decline in use of her hands/UB strength. She is motivated to get as strong as she can before her trip in the spring. Patient has made good functional progress since month and continued skilled OT indicated for therapeutic exercise and activities, modalities, manual therapy, and HEP instruction/ progression to facilitate optimal functional use of her hands. Plan of Care Interventions Therapeutic Exercise,Manual Therapy,Therapeutic Activities OT Services Indicated Yes Treatment Frequency and 2x/week for 4 weeks Duration These treatments will address the objective and functional deficits as defined above. The patient will be advanced safely and appropriately in order for the patient to progress towards his/her prior level of function. Additional exercises will be introduced and as well as a comprehensive home exercise program upon discharge, if needed, ?to ensure carryover of functional gains achieved in the clinic. This treatment plan has been reviewed and agreement upon by the patient.
--- NOTE | 2023-07-21 14:40 | OPREHPOC ---
Outpatient Therapy Plan of Care This is a Multidisciplinary Plan of Care that may contain components documented by all disciplines (PT, OT, and ST.) PT Problem 1 PT Problem #1 Knowledge Deficit PT Goal 1 Goal Indpendent with HEP Target Visit 16 Progress Met PT Problem 2 PT Problem #2 Impaired Strength PT Goal 1 Goal 4+/5 ODELL hip abduction and extension Target Visit 16 Progress Partially Met Comment Progressing but still significant weakness noted PT Problem 3 PT Problem #3 Impaired Balance PT Goal 1 Goal tandem stance with eyes open but no UE support 30 seconds Target Visit 8 Progress Partially Met PT Goal 2 Goal tandem stance eyes closed no UE support x 30 seconds Progress Partially Met PT Problem 4 PT Problem #4 Impaired Gait PT Goal 1 Goal Patient to report feeling comfortable walking outside. Target Visit 16 Progress Partially Met Comment She has been walking more independently but does not feels she has the confidence and balanc osmin uneven surfaces. PT Goal 2 Goal Patient will demonstrat ability to ambulate independent of AD on variable surfaces for 500' without LOB Target Visit 16 Comment New Goal OT Problem 1 OT Problem #1 Knowledge Deficit OT Goal 1 Goal 1. Patient to be independent with instructed materials. ---OT POC UPDATE 07/21/23-- 1. Met, continue as HEP is progressed. Target Visit 14 OT Problem 2 OT Problem #2 Impaired Strength OT Goal 1 Goal 1. Patient to increase left credit support specialist strength to 20 lbs. 2. Patient to increase right credit support specialist strength to 30 lbs. ---OT POC UPDATE 07/21/23-- 1. Met - Upgrade to 25
--- NOTE | 2023-09-01 15:22 | PTOPPROG ---
Assessment and note entered by Ren Chaudhary, PT Evaluation Information Assessment Status Progress Diagnosis Lumbar Spondylosis Subjective Information Reports that she feels she is doing well with hip strengthening activity. She is still very concerned with her balance and overall gait mobility. She would like to continue therapy to focus on these things as she is comfortable with HEP at this time. Assessment PT Clinical Summary Patient has shown some improvements in strength and balance moving forward. She sill falls in a moderate fall risk category and this is increased when she is distracted with UE carrying and stability activity. Overall continues to show functional deficits which will benefit from skilled therapy to continue to work on. Plan of Care Interventions Gait Training,Manual Therapy,Neuro Re-education, Patient/Caregiver Educati,Therapeutic Activities, Therapeutic Exercise,Ultrasound Other Interventions cupping, taping, IASTM PT Services Indicated Yes Treatment Frequency and 1-2x/week for 4 weeks Duration These treatments will address the objective and functional deficits as defined above. The patient will be advanced safely and appropriately in order for the patient to progress towards his/her prior level of function. Additional exercises will be introduced and as well as a comprehensive home exercise program upon discharge, if needed, ?to ensure carryover of functional gains achieved in the clinic. This treatment plan has been reviewed and agreement upon by the patient.
--- NOTE | 2023-09-05 13:22 | PCOTNOTE ---
This treatment is being continued on visit number [id number]. Please see documentation on both accounts to view progress. Completed interventions, outcomes, and problems have been marked as Inactive to facilitate the copying of the Care plan routine for recurring accounts.
== END 2023-09-05 07:50 | disposition home or self-care (01) ==
LOC: ANHOT 14:30
PROVIDERS: PCP Plastic Surgery; Referring Provider Neurological Surgery; Visit Provider Nurse Practitioner
DX: M79.645 Pain in left finger(s) (principal); R53.1 Weakness; M47.816 Spondylosis without myelopathy or radiculopathy, lumbar region
CPT/HCPCS: 97018; 97035; 97110; 97112; 97116; 97140; 97161; 97165; 97530

== ENCOUNTER 2023-09-29 14:30 | Outpatient (RCR) | payer OTHER, SELFPAY ==
--- NOTE | 2023-09-05 13:23 | PCOTNOTE ---
The treatment documented on this account is a continuation of the treatment documented on visit number [id number]. Please see documentation on both accounts to view progress. The Plan of Care has been transitioned and updated within the new V#. I have addressed and agree with the discipline specific Problems, Interventions, and Goals for the current certification period. Completed interventions, outcomes, and problems have been marked as Inactive to facilitate the copying of the Care plan routine for recurring accounts.
--- NOTE | 2023-09-29 15:26 | PTOPDC ---
Assessment and note entered by Ren Chaudhary, PT Evaluation Information Assessment Status Discharge Diagnosis Lumbar Spondylosis Subjective Information Reports that since staring therapy she has seen improvement. She does still occasionally feel wobbly on her feet. She is still worried about falling when she walks outside. She does not feel at all concerned when she is inside on firm surfaces. Reported Pain Level Pain Score 0: Self Report Assessment PT Clinical Summary Patient met all of her goals for therapy at this time. She has been very compliant with therapy and reflects no concerns for compliance as part of [facility] to continue therapy throughout the winter. She has continued room for improvement in her hip strength to continue to promote improved stability . Plan of Care PT Services Indicated Discharge to [facility]
--- NOTE | 2023-09-29 15:26 | OTOPDC ---
Assessment and note entered by Garo Hirsch, HECTOR/Iwona, [facility] Discharge Summary 09/29/23 Diagnosis M49.646 Pain in unspecified finger, M65.3 Trigger finger Subjective Information Patient reports improved function of her hands. Reports improved ability to start the car, squeeze the gear shift, pulling/operating the shower faucet. She continues to need to use adaptive equipment to open water bottles. She reports that first thing in the morning she is more stiff and weak, but after she warms up her ROM and strength feel better and more functional. She reports she continues to be unable to close her left hand fully, noting that she drops coins when trying to pick them up and put them in her palm. She is compliant with all HEPs. This past month the focus has shifted from gross strengthening to treating bilateral trigger fingers through use of modalities, splinting, manual therapy, and tendon gliding exercises. Progress update for general ROM and strength of the hands: ROM of the right hand is WFL. She continues to be unable to fully close the left ring finger. All other digits touch the palm. (R) setup technician strength remained unchanged at 30 lbs. (L) setup technician strength improved by 3 lbs. and is measuring 21 lbs. Reported Pain Level Pain Score 0: Self Report Assessment OT Clinical Summary Patient referred to outpatient OT with a decline in use of her hands/UB strength. She has PMH of cervical spondylosis and RA. At this time the patient has reached a progress plateau with therapy. She has been attending OT since June with the focus on treating gross UE weakness, hand weakness, and trigger fingers. She is currently independent with use of thermal modalities at home , active/passive ROM, tendon glides, and resistive training. She has PIP immobilization splints. Plan for her to continue to follow up with hand specialist and continue her home program. Discharging from therapy with a progress plateau. Plan of Care OT Services Indicated No
--- NOTE | 2023-09-29 15:26 | OPREHPOC ---
Outpatient Therapy Plan of Care This is a Multidisciplinary Plan of Care that may contain components documented by all disciplines (PT, OT, and ST.) PT Problem 1 PT Problem #1 Knowledge Deficit PT Goal 1 Goal Indpendent with HEP Target Visit 16 Progress Met PT Problem 2 PT Problem #2 Impaired Strength PT Goal 1 Goal 4+/5 ODELL hip abduction and extension Target Visit 16 Progress Partially Met Comment Significant improvement noted. Continued rinforcement through HEP PT Problem 3 PT Problem #3 Impaired Balance PT Goal 1 Goal tandem stance with eyes open but no UE support 30 seconds Target Visit 24 Progress Met PT Goal 2 Goal tandem stance eyes closed no UE support x 30 seconds Progress Met PT Problem 4 PT Problem #4 Impaired Gait PT Goal 1 Goal Patient to report feeling comfortable walking outside. Target Visit 24 Progress Met Comment Able to traverse outdoor obstacels with no LOB this date PT Goal 2 Goal Patient will demonstrat ability to ambulate independent of AD on variable surfaces for 500' without LOB Target Visit 24 Progress Met Comment New Goal PT Problem 5 PT Problem #5 Impaired Balance PT Goal 1 Goal Demonstrate 5 point increase in Tinetti score indicating significant reduction in fall risk. Target Visit 24 Progress Met OT Problem 1 OT Problem #1 Knowledge Deficit OT Goal 1 Goal 1. Patient to be independent with instructed materials. ---OT POC UPDATE 07/21/23-- 1. Met, continue as HEP is progressed. ---OT POC UPDATE 08/27/23-- 1. Met, contin
== END 2023-09-29 16:43 | disposition home or self-care (01) ==
LOC: ANHOT 14:30
PROVIDERS: PCP Internal Medicine; Referring Provider Neurological Surgery; Visit Provider Nurse Practitioner
DX: M79.645 Pain in left finger(s) (principal); M47.816 Spondylosis without myelopathy or radiculopathy, lumbar region; M65.30 Trigger finger, unspecified finger
CPT/HCPCS: 97018; 97035; 97110; 97112; 97140; 97530

== ENCOUNTER 2023-10-16 15:31 | Outpatient (CLI) | payer OTHER, SELFPAY ==
[2023-10-16 15:48] LABS: Basophils Absolute Auto 0.1 K/mm3 (0.0-0.1); Basophils Percent Auto 0.5 % (0.2-1.2); Eosinophils Absolute Auto 0.2 K/mm3 (0-0.3); Eosinophils Percent Auto 2.2 % (0-4.4); Hematocrit 33.3 % (37.0-47.0); Hemoglobin 10.9 g/dL (12.0-15.0); Immature Granulocyte Absolute 0.05 K/mm3 (0.00-0.031); Immature Granulocyte Percent A 0.5 % (0-0.5); Lymphocytes Absolute Auto 1.82 K/mm3 (0.9-3.2); Lymphocytes Percent Auto 18.5 % (18.3-44.2); Mean Corpuscular HGB Conc 32.7 g/dl (32-36); Mean Corpuscular Hemoglobin 30.9 pg (26-34); Mean Corpuscular Volume 94.3 fl (80-100); Mean Platelet Volume 10.3 fl (7.4-10.4); Monocytes Absolute Auto 0.5 K/mm3 (0.1-0.6); Monocytes Percent Auto 5.1 % (2.6-8.5); Neutrophils Absolute Auto 7.2 K/mm3 (1.3-6.7); Neutrophils Percent Auto 73.2 % (45.5-73.1); Platelet Count Result 239 k/mm3 (150-375); Red Blood Count 3.53 M/mm3 (4.2-5.4); Red Cell Distribution Width 15.7 % (11.5-14.5); White Blood Count 9.9 K/mm3 (4.5-10.0)
[2023-10-16 17:03] LABS: Anion Gap 9 mmol/L (8-16); Blood Urea Nitrogen 14 mg/dL (7-17); Carbon Dioxide 27 mmol/L (22-30); Chloride 103 mmol/L (98-107); Estimated Glomerular Filt Rate 49; Glucose 108 mg/dL (65-110); Potassium 4.1 mmol/L (3.4-5.0); Sodium 139 mmol/L (137-145)
[2023-10-16 17:08] LABS: Iron 36 ug/dL (37-170)
[2023-10-16 17:21] LABS: Percent Iron Saturation 15 % (20-50)
[2023-10-16 18:13] LABS: Folic Acid > 20.0 ng/mL (2.76->20)
[2023-10-21 17:13] LABS: Albumin 3.8 g/dL (3.8-4.8); Alpha 1 Globulin 0.4 g/dL (0.2-0.3); Beta 1 Globulin 0.4 g/dL (0.4-0.6); Gamma Globulin 1.2 g/dL (0.8-1.7); Protein, Total 7.1 g/dL (6.1-8.1)
== END 2023-10-16 15:32 | disposition home or self-care (01) ==
LOC: ANHLAB 15:33
PROVIDERS: PCP Internal Medicine; Visit Provider Internal Medicine Hematology & Oncology
DX: D64.9 Anemia, unspecified (principal)
CPT/HCPCS: 36415; 80048; 82607; 82728; 82746; 83540; 83550; 84155; 84165; 85025

== ENCOUNTER 2024-01-13 13:00 | Outpatient (CLI) | payer OTHER, SELFPAY ==
[2024-01-13 13:18] LABS: Basophils Absolute Auto 0.1 K/mm3 (0.0-0.1); Basophils Percent Auto 0.7 % (0.2-1.2); Eosinophils Absolute Auto 0.2 K/mm3 (0-0.3); Eosinophils Percent Auto 2.4 % (0-4.4); Hematocrit 33.8 % (37.0-47.0); Hemoglobin 11.1 g/dL (12.0-15.0); Immature Granulocyte Absolute 0.01 K/mm3 (0.00-0.031); Immature Granulocyte Percent A 0.1 % (0-0.5); Lymphocytes Percent Auto 18.9 % (18.3-44.2); Mean Corpuscular HGB Conc 32.8 g/dl (32-36); Mean Corpuscular Hemoglobin 31.2 pg (26-34); Mean Corpuscular Volume 94.9 fl (80-100); Mean Platelet Volume 10.8 fl (7.4-10.4); Monocytes Absolute Auto 0.4 K/mm3 (0.1-0.6); Monocytes Percent Auto 5.3 % (2.6-8.5); Neutrophils Absolute Auto 5.4 K/mm3 (1.3-6.7); Neutrophils Percent Auto 72.6 % (45.5-73.1); Platelet Count Result 173 k/mm3 (150-375); Red Blood Count 3.56 M/mm3 (4.2-5.4); Red Cell Distribution Width 15.9 % (11.5-14.5); White Blood Count 7.4 K/mm3 (4.5-10.0)
[2024-01-13 16:29] LABS: Iron 116 ug/dL (37-170)
[2024-01-13 16:41] LABS: Percent Iron Saturation 53 % (20-50)
[2024-01-13 17:42] LABS: Folic Acid > 20.0 ng/mL (2.76->20)
== END 2024-01-13 13:01 | disposition home or self-care (01) ==
PROVIDERS: PCP Internal Medicine; Visit Provider Internal Medicine Hematology & Oncology
DX: D64.9 Anemia, unspecified (principal)
CPT/HCPCS: 36415; 82607; 82728; 82746; 83540; 83550; 85025

== ENCOUNTER 2024-03-02 10:04 | Outpatient (CLI) | payer OTHER, SELFPAY ==
[2024-03-02 19:05] LABS: Alanine Aminotransferase 26 U/L (6-35); Albumin Level 4.5 g/dL (3.5-5.1); Alkaline Phosphatase 182 U/L (38-126); Anion Gap 9 mmol/L (4-12); Aspartate Amino Transferase 43 U/L (14-36); Bilirubin,Total 0.6 mg/dL (0.2-1.3); Blood Urea Nitrogen 15 mg/dL (7-17); Calcium 10.3 mg/dL (8.4-10.2); Carbon Dioxide 26 mmol/L (22-30); Chloride 104 mmol/L (98-107); Cholesterol 228 mg/dL (0-200); Estimated Glomerular Filt Rate > 60; Glucose 102 mg/dL (65-110); HDL Direct 81 mg/dL; Potassium 4.1 mmol/L (3.4-5.0); Sodium 139 mmol/L (137-145); Triglycerides 104 mg/dL (<150)
[2024-03-02 19:16] LABS: LDL Cholesterol Direct 95 mg/dL
[2024-03-02 19:56] LABS: Free T4 Free Thyroxine 2.61 ng/mL (0.78-2.19); Vitamin D 25 Hydroxy 52.7 ng/mL
== END 2024-03-02 10:05 | disposition home or self-care (01) ==
PROVIDERS: PCP Internal Medicine; Visit Provider Clinical Nurse Specialist
DX: E78.5 Hyperlipidemia, unspecified (principal); D64.9 Anemia, unspecified; E03.9 Hypothyroidism, unspecified; E55.9 Vitamin D deficiency, unspecified; F32.A Depression, unspecified; N18.9 Chronic kidney disease, unspecified; M06.9 Rheumatoid arthritis, unspecified
CPT/HCPCS: 36415; 80053; 80061; 82306; 84439; 84443

== ENCOUNTER 2024-03-05 15:22 | Outpatient (CLI) | payer OTHER, SELFPAY ==
--- NOTE | ~2024-03-05 | MM_ITS ---
EXAMINATION: MM scrn cole implant BI w consuelo HISTORY: Screening mammogram TECHNIQUE: Craniocaudal and mediolateral oblique 3-D tomosynthesis images with implant displacement a nd synthetic 2-D images were generated. Craniocaudal and mediolateral oblique views of the breasts wi thout implant displacement were obtained using full field digital mammography. CAD analysis was submi tted and interpreted. COMPARISON: 03/25/2022, 05/01/2020 bilateral implant screening mammogram examinations BREAST PARENCHYMAL COMPOSITION: The breasts are extremely dense, which lowers the sensitivity of mamm ography. FINDINGS: Status post bilateral augmentation mammoplasty. There is no evidence of suspicious mass, ca lcification, or architectural distortion to suggest malignancy in either breast. There has been no betancur spicious interval change. IMPRESSION: 1. No mammographic evidence of malignancy. 2. Recommend routine screening mammography in one year. BI-RADS Category 1: Negative Reviewed, dictated and finalized at location A.
== END 2024-03-05 15:23 | disposition home or self-care (01) ==
LOC: ANHIMG 15:23
PROVIDERS: PCP Internal Medicine; Visit Provider Clinical Nurse Specialist
DX: Z12.31 Encounter for screening mammogram for malignant neoplasm of breast (principal)
CPT/HCPCS: 77063; 77067

== ENCOUNTER 2024-03-31 14:00 | Outpatient (RCR) | payer OTHER, SELFPAY ==
--- NOTE | 2024-01-06 13:49 | PTOPEVAL1 ---
Assessment and note entered by Ren Chaudhary, PT Evaluation Information Assessment Status Evaluation Diagnosis Low back pain, Unsteadiness on feet Onset 2021 Subjective Information Reports that she feels she is not getting around as fast and safely as she should. She is also having pain on the right side of her low back. She denies any falls recently. She has been trying to take about 2600 steps a day. Back pain in caused by being up and walking or doing a lot of bending. She is also struggling to lift at this time as well. Reported Pain Level Pain Score 3: Self Report Assessment PT Clinical Summary Patient presents with weakness of aleksandr hips, decreased endurance, poor core stability, and poor hip stability. Will benefit from skilled therapy to address these deficits to maximize gross functional and safety with ADL performance. Plan of Care Interventions Electrical Stimulation,Hot Pack/Cold Pack,Manual Therapy,Neuro Re-education,Therapeutic Activities, Therapeutic Exercise PT Services Indicated Yes Treatment Frequency and 1-2x/week for 10 visits Duration These treatments will address the objective and functional deficits as defined above. The patient will be advanced safely and appropriately in order for the patient to progress towards his/her prior level of function. Additional exercises will be introduced and as well as a comprehensive home exercise program upon discharge, if needed, ?to ensure carryover of functional gains achieved in the clinic. This treatment plan has been reviewed and agreement upon by the patient.
--- NOTE | 2024-01-06 13:49 | OPREHPOC ---
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 greater than 2/10 with walking activity Target Visit 5 PT Problem 3 PT Problem #3 Impaired Strength PT Goal 1 Goal Improve aleksandr hip abduction strength to 4+/5 to improve lateral stability with ADLs Target Visit 10 PT Goal 2 Goal Improve aleksandr hip flexion strength to 4+/5 to improve foot clearance with gait and steps Target Visit 10 PT Problem 4 PT Problem #4 Impaired Balance PT Goal 1 Goal Demonstrate ability to maintain stability with eyes closed on soft surface to improve proprioceptiona nd balance with ADLs PT Problem 5 PT Problem #5 Impaired Functional Mobil PT Goal 1 Goal Demonstrate ability to perform 10# lift from floor to chest level shelf (Patient goal) Target Visit 10
--- NOTE | 2024-01-08 15:51 | OTOPEVAL1 ---
Assessment and note entered by HECTOR Raygoza/Iwona, [facility] Evaluation Information 01/08/24 Assessment Status Evaluation Diagnosis Synovitis Subjective Information Patient referred to OT with multiple digits with tenosynovitis, stiffness, and triggering. She reports no pain. Reporting gross weakness which affects her ability to open jars, water bottles, start the car, gripping a toothbrush. Assessment OT Clinical Summary Patient referred to OT with tenosynovitis, triggering, and generalized stiffness of bilateral hands. She presents with gross weakness, crepitus with ROM, and finger triggering that has been affecting her ability to complete gripping and pinching tasks during ADLs. Skilled OT indicated for use of modalities, manual therapy, and therapeutic exercise to facilitate improved functional hand use during ADLs. Plan of Care Interventions Therapeutic Exercise,Manual Therapy,Therapeutic Activities,Hot Pack/Cold Pack,Ultrasound,Paraffin OT Services Indicated Yes Treatment Frequency and 2x/week for 10 visits Duration These treatments will address the objective and functional deficits as defined above. The patient will be advanced safely and appropriately in order for the patient to progress towards his/her prior level of function. Additional exercises will be introduced and as well as a comprehensive home exercise program upon discharge, if needed, ?to ensure carryover of functional gains achieved in the clinic. This treatment plan has been reviewed and agreement upon by the patient.
--- NOTE | 2024-01-08 15:51 | OPREHPOC ---
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 greater than 2/10 with walking activity Target Visit 5 PT Problem 3 PT Problem #3 Impaired Strength PT Goal 1 Goal Improve aleksandr hip abduction strength to 4+/5 to improve lateral stability with ADLs Target Visit 10 PT Goal 2 Goal Improve aleksandr hip flexion strength to 4+/5 to improve foot clearance with gait and steps Target Visit 10 PT Problem 4 PT Problem #4 Impaired Balance PT Goal 1 Goal Demonstrate ability to maintain stability with eyes closed on soft surface to improve proprioceptiona nd balance with ADLs PT Problem 5 PT Problem #5 Impaired Functional Mobil PT Goal 1 Goal Demonstrate ability to perform 10# lift from floor to chest level shelf (Patient goal) Target Visit 10 OT Problem 1 OT Problem #1 Knowledge Deficit OT Goal 1 Goal 1. Patient to be independent with instructed materials. Target Visit 10 OT Problem 2 OT Problem #2 Impaired Strength OT Goal 1 Goal 1. Patient to improve (R) clinical office technician strength by 5 lbs. 2. Patient to improve (L) clinical office technician strength by 5 lbs. Target Visit 10 OT Problem 3 OT Problem #3 Impaired Flexibility OT Goal 1 Goal 1. Patient to demonstrate reduced inflammation of bilateral hands as demonstrated by having no instances of finger triggering with active finger flexion activities/exercises. Target Visit 10
--- NOTE | 2024-01-29 13:20 | PCPTNOTE ---
Patient canceled this date do to provider out with sick child.
--- NOTE | 2024-02-04 15:10 | PCOTNOTE ---
The patient treatment was not able to be completed on Thursday 02/01 due to Therapist being out of the building. Will plan to continue treatment per plan of care. Patient rescheduled 02-05.
--- NOTE | 2024-02-20 14:57 | OTOPPROG ---
Assessment and note entered by Garo Hirsch, HECTOR/Iwona, CHT Evaluation Information Assessment Status Progress Diagnosis Synovitis Subjective Information Patient has been participating in OT x5 weeks. She states she is no longer having pain and constant triggering of her fingers. She reports progress with gross gripping. 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 She reports continuing to feel grossly weak in her arms and hands. She reports being able to start her car is difficult. States her hands are too weak to unlock her car using the mccain alex so she has to use her mccain to manually unlock her car. Assessment OT Clinical Summary Patient referred to OT with tenosynovitis, triggering, and generalized stiffness of bilateral hands. Therapy has been focused on reducing triggering and inflammation through use of modalities, splinting, and manual therapy. She has made good progress with this, noted by no instances of triggering with her HEP now. She continues to demonstrate crepitus with finger flexion as well as gross weakness limiting functional hand use. Continued skilled OT indicated for use of modalities, manual therapy, and therapeutic exercise to facilitate improved functional hand use during ADLs. Plan of Care Interventions Therapeutic Exercise,Manual Therapy,Therapeutic Activities,Hot Pack/Cold Pack,Ultrasound,Paraffin OT Services Indicated Yes Treatment Frequency and 2x/week for 10 visits Duration These treatments will address the objective and functional deficits as defined above. The patient will be advanced safely and appropriately in order for the patient to progress towards his/her prior level of function. Additional exercises will be introduced and as well as a comprehensive home exercise program upon discharge, if needed, ?to ensure carryover of functional gains achieved in the clinic. This treatment plan has been reviewed and agreement upon by the patient.
--- NOTE | 2024-02-20 14:58 | OPREHPOC ---
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 greater than 2/10 with walking activity Target Visit 5 PT Problem 3 PT Problem #3 Impaired Strength PT Goal 1 Goal Improve aleksandr hip abduction strength to 4+/5 to improve lateral stability with ADLs Target Visit 10 PT Goal 2 Goal Improve aleksandr hip flexion strength to 4+/5 to improve foot clearance with gait and steps Target Visit 10 PT Problem 4 PT Problem #4 Impaired Balance PT Goal 1 Goal Demonstrate ability to maintain stability with eyes closed on soft surface to improve proprioceptiona nd balance with ADLs PT Problem 5 PT Problem #5 Impaired Functional Mobil PT Goal 1 Goal Demonstrate ability to perform 10# lift from floor to chest level shelf (Patient goal) Target Visit 10 OT Problem 1 OT Problem #1 Knowledge Deficit OT Goal 1 Goal 1. Patient to be independent with instructed materials. ---OT POC UPDATE 02/20/24--- 1. Met, continue as HEP is progressed Target Visit 20 OT Problem 2 OT Problem #2 Impaired Strength OT Goal 1 Goal 1. 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 2. Patient to improve (L) insulation cupola charger strength by 5 lbs. ---OT POC UPDATE 02/20/24--- 1. Not met, continue 2. Not met, continue Target Visit 20 OT Problem 3 OT Problem #3 Impaired Flexibility OT Goal 1 Goal 1. Patient to demonstrate reduced inflammation of bilateral hands as demonstrated by having no instances of finger triggering with active finger flexion activities/exercises. ---OT POC UPDATE 02/20/24--- 1. Met, patient continues to have crepitus, but no
--- NOTE | 2024-02-20 16:29 | PTOPPROG ---
Assessment and note entered by Ren Chaudhary, PT Evaluation Information Assessment Status Progress Diagnosis Low back pain, Unsteadiness on feet Onset 2021 Subjective Information Patient reports that she has really been struggling with back pain when upright and walking . She has limited all of her travel plans because of this. Wants to continue to follow with physical therapy as she has seen improvement in function and still feels she needs to get significantly stronger. Assessment PT Clinical Summary Patient has seen some improvement in LE strength but remains very weak at hips. She continues to show limitations from pain and core stabilization, however she remains a moderate fall risk with [place]. Will continue to benefit from skilled therapy to address deficits and improve gross mobility and stability for ADL activity. Plan of Care Interventions Electrical Stimulation,Hot Pack/Cold Pack,Manual Therapy,Neuro Re-education,Therapeutic Activities, Therapeutic Exercise PT Services Indicated Yes Treatment Frequency and 1-2x/week for 10 visits Duration These treatments will address the objective and functional deficits as defined above. The patient will be advanced safely and appropriately in order for the patient to progress towards his/her prior level of function. Additional exercises will be introduced and as well as a comprehensive home exercise program upon discharge, if needed, ?to ensure carryover of functional gains achieved in the clinic. This treatment plan has been reviewed and agreement upon by the patient.
--- NOTE | 2024-02-20 16:29 | OPREHPOC ---
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 with walking activity Target Visit 20 Progress Partially Met PT Problem 3 PT Problem #3 Impaired Strength PT Goal 1 Goal Improve aleksandr hip abduction strength to 4+/5 to improve lateral stability with ADLs Target Visit 20 Progress Partially Met PT Goal 2 Goal Improve aleksandr hip flexion strength to 4+/5 to improve foot clearance with gait and steps Target Visit 20 Progress Partially Met PT Problem 4 PT Problem #4 Impaired Balance PT Goal 1 Goal Demonstrate ability to maintain stability with eyes closed on soft surface to improve proprioceptiona nd balance with ADLs Target Visit 20 Progress Partially Met PT Problem 5 PT Problem #5 Impaired Functional Mobil PT Goal 1 Goal Demonstrate ability to perform 10# lift from floor to chest level shelf (Patient goal) Target Visit 20 Progress Not Met OT Problem 1 OT Problem #1 Knowledge Deficit OT Goal 1 Goal 1. Patient to be independent with instructed materials. ---OT POC UPDATE 02/20/24--- 1. Met, continue as HEP is progressed Target Visit 20 OT Problem 2 OT Problem #2 Impaired Strength OT Goal 1 Goal 1. 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 2. Patient to improve (L) airplane tube builder strength by 5 lbs. ---OT POC UPDATE 02/20/24--- 1. Not met, continue 2. Not met, continue Target Visit 20 OT Problem 3 OT Problem #3
--- NOTE | 2024-03-01 14:17 | PCPTNOTE ---
Patient called & cancelled scheduled appointment this date due to not feeling well.
--- NOTE | 2024-04-02 16:39 | PCPTNOTE ---
Patient cancelled today's session due to illness.
--- NOTE | 2024-04-06 13:56 | PCOTNOTE ---
This treatment is being continued on visit number [id number]. Please see documentation on both accounts to view progress. Completed interventions, outcomes, and problems have been marked as Inactive to facilitate the copying of the Care plan routine for recurring accounts.
== END 2024-04-02 13:46 | disposition still patient (30) ==
LOC: ANHGOSHOT 14:00
PROVIDERS: PCP Internal Medicine; Visit Provider Clinical Nurse Specialist
DX: M54.50 Low back pain, unspecified (principal); M54.6 Pain in thoracic spine; R26.81 Unsteadiness on feet
CPT/HCPCS: 97014; 97018; 97035; 97110; 97112; 97140; 97161; 97165; 97530; G0283; L3925

== ENCOUNTER 2024-04-09 14:00 | Outpatient (RCR) | payer OTHER, SELFPAY ==
--- NOTE | 2024-04-06 13:55 | PCOTNOTE ---
The treatment documented on this account is a continuation of the treatment documented on visit number [id number]. Please see documentation on both accounts to view progress. The Plan of Care has been transitioned and updated within the new V#. I have addressed and agree with the discipline specific Problems, Interventions, and Goals for the current certification period. Completed interventions, outcomes, and problems have been marked as Inactive to facilitate the copying of the Care plan routine for recurring accounts.
--- NOTE | 2024-04-06 14:43 | OTOPDC ---
Assessment and note entered by Garo Hirsch, OTR/Iwona, CHT Discharge Summary 04/06/24 Diagnosis Synovitis Subjective Information Patient has been participating in OT x15 weeks. She continues to report minimal to no hand pain, but continued crunching in the fingers with finger flexion. 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 Functionally she reports minimal improvements, continuing to have difficulties starting her car, opening jars, and gripping objects. ROM of bilateral hands remained unchanged. 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 She no longer has active triggering of her fingers, but continues to have audible crepitus with finger flexion. She has PIP immobilization splints as well as putty for HEP. Assessment/Clinical Summary OT Clinical Summary Patient has participated in 20 OT sessions with the goal of reducing bilateral finger flexor tenosynovitis. Since the start of care she has made progress with no longer having the fingers getting stuck in flexion with hand use/ROM. She continues to have crepitus on several finger flexors, however. ROM and examination supervisor strengths have reached a functional plateau. Unfortunately it appears she has reached her maximum benefit with therapy and is being discharged with her home exercise program at this time. Plan of Care OT Services Indicated No
--- NOTE | 2024-04-09 16:49 | OPREHPOC ---
Outpatient Therapy Plan of Care This is a Multidisciplinary Plan of Care that may contain components documented by all disciplines (PT, OT, and ST.) PT Problem 1 PT Problem #1 Knowledge Deficit PT Goal 1 Goal [place] with HEP Progress Met PT Goal 1 Goal Report no pain greater than 2 /10 with walking Progress Partially Met Comment Pain reduced but not consistency less than 10/10 PT Goal 1 Goal Improve aleksandr hip abduction strength to 4+/5 Progress Partially Met PT Goal 2 Goal Improve aleksandr hip flexion strength to 4+/5 to improve foot clearance Progress Met PT Goal 1 Goal Demonstrate ability to maintain balance on uneven surface for 30 seconds with no loss of balance Progress Met OT Problem 1 OT Problem #1 Knowledge Deficit OT Goal 1 Goal 1. Patient to be independent with instructed materials. ---OT POC UPDATE 02/20/24--- 1. Met, continue as HEP is progressed ---OT D/C 04/06/24--- 1. Met OT Problem 2 OT Problem #2 Impaired Strength OT Goal 1 Goal 1. Patient to improve (R) budget specialist strength by 5 lbs. 2. Patient to improve (L) budget specialist strength by 5 lbs. ---OT POC UPDATE 02/20/24--- 1. Not met, continue 2. Not met, continue ---OT D/C 04/06/24--- 1. Not met 2. Not met OT Problem 3 OT Problem #3 Impaired Range of Motion OT Goal 1 Goal 1. Patient to demonstrate reduced inflammation of bilateral hands as demonstrated by having no instances of finger triggering with active finger flexion activities/exercises. ---OT POC UPDATE 02/20/24--- 1. Met, patient continues to have crepitus, but no active triggering in the clinic today, continue goal as strengthening is progressed ---OT D/C 04/06/24--- 1. Met
--- NOTE | 2024-04-09 16:49 | PTOPDC ---
Assessment and note entered by Ren Chaudhary, PT Evaluation Information Assessment Status Discharge Diagnosis Low back pain, unsteadiness on feet Onset 2021 Subjective Information Patient reports that she has likely not been doing as much exercise at home as she should but she plans to do better moving forward. She would like to take a couple months off to try towards independence and return if needed. Reported Pain Level Pain Score 0: Self Report Assessment PT Clinical Summary Patient has seen some improvement with strength and stability. She has been working towards improving balance and gross strengthening, but needs motivation to continue at home. I had a long conversation with her to continue independent ambulation and strengthening. Patient will discharge to [facility].
== END 2024-04-12 09:20 | disposition home or self-care (01) ==
LOC: ANHGOSHPT 14:00
PROVIDERS: PCP Internal Medicine; Visit Provider Clinical Nurse Specialist
DX: M54.50 Low back pain, unspecified (principal); M54.6 Pain in thoracic spine; M65.9 Synovitis and tenosynovitis, unspecified; R26.81 Unsteadiness on feet
CPT/HCPCS: 97110; 97530

== ENCOUNTER 2024-04-12 11:56 | Outpatient (CLI) | payer OTHER, SELFPAY ==
[2024-04-12 12:26] LABS: Basophils Absolute Auto 0.1 K/mm3 (0.0-0.1); Basophils Percent Auto 0.8 % (0.2-1.2); Eosinophils Absolute Auto 0.2 K/mm3 (0-0.3); Hematocrit 37.2 % (37.0-47.0); Hemoglobin 12.3 g/dL (12.0-15.0); Immature Granulocyte Absolute 0.04 K/mm3 (0.00-0.031); Immature Granulocyte Percent A 0.5 % (0-0.5); Lymphocytes Absolute Auto 1.57 K/mm3 (0.9-3.2); Lymphocytes Percent Auto 18.4 % (18.3-44.2); Mean Corpuscular HGB Conc 33.1 g/dl (32-36); Mean Corpuscular Hemoglobin 30.8 pg (26-34); Mean Platelet Volume 10.7 fl (7.4-10.4); Monocytes Absolute Auto 0.7 K/mm3 (0.1-0.6); Neutrophils Percent Auto 70.3 % (45.5-73.1); Platelet Count Result 199 k/mm3 (150-375); Red Cell Distribution Width 14.5 % (11.5-14.5); White Blood Count 8.5 K/mm3 (4.5-10.0)
[2024-04-12 16:47] LABS: Iron 56 ug/dL (37-170)
[2024-04-12 16:48] LABS: Anion Gap 7 mmol/L (4-12); Blood Urea Nitrogen 13 mg/dL (7-17); Calcium 9.6 mg/dL (8.4-10.2); Carbon Dioxide 27 mmol/L (22-30); Chloride 102 mmol/L (98-107); Estimated Glomerular Filt Rate 55; Glucose 94 mg/dL (65-110); Potassium 4.2 mmol/L (3.4-5.0); Sodium 136 mmol/L (137-145)
[2024-04-12 16:57] LABS: Percent Iron Saturation 27 % (20-50)
[2024-04-12 17:56] LABS: Folic Acid > 20.0 ng/mL (2.76->20); Vitamin B12 > 1000.0 pg/mL (239-931)
== END 2024-04-12 11:57 | disposition home or self-care (01) ==
LOC: ANHLAB 11:59
PROVIDERS: PCP Internal Medicine; Visit Provider Internal Medicine Hematology & Oncology
DX: D64.9 Anemia, unspecified (principal)
CPT/HCPCS: 36415; 80048; 82607; 82728; 82746; 83540; 83550; 85025

== ENCOUNTER 2024-06-01 14:06 | Outpatient (CLI) | payer OTHER, SELFPAY ==
[2024-06-01 19:17] LABS: Free T4 Free Thyroxine 1.63 ng/mL (0.78-2.19)
== END 2024-06-01 14:07 | disposition home or self-care (01) ==
LOC: ANHGOSHLAB 14:06
PROVIDERS: PCP Internal Medicine; Visit Provider Clinical Nurse Specialist
DX: E03.9 Hypothyroidism, unspecified (principal); F32.A Depression, unspecified
CPT/HCPCS: 36415; 84439; 84443

== ENCOUNTER 2024-06-22 14:32 | Outpatient (CLI) | payer OTHER, SELFPAY ==
--- NOTE | ~2024-06-22 | MR_ITS ---
EXAMINATION: MR lumbar spine wo con DATE: 06/22/2024 15:37 INDICATION: Radiculopathy, lumbar region. TECHNIQUE: Magnetic resonance imaging (MRI) of the lumbar spine was performed without intravenous con trast. Sequences included sagittal T2-weighted FSE, sagittal T2-weighted FS FSE, sagittal T1-weighted FSE, and axial T2-weighted FSE. COMPARISON: Lumbar spine MRI 04/11/2023 FINDINGS: There is 22 degrees dextroscoliosis of lumbar spine. There is 3 mm anterolisthesis of L2 on L3. Vertebral body heights are normal. There is mildly decreased disc height at L2-L3 and severely d ecreased disc height from L3-L4 through L5-S1. The distal spinal cord signal intensity is normal. The conus medullaris is at T12. The following disc levels are specifically discussed: L1-L2: The disc is bulging. There is moderate bilateral facet joint osteoarthritis. There is mild aleksandr ateral neural foraminal stenosis. There is mild central canal stenosis. L2-L3: The disc is bulging and has an annular fissure. There is severe bilateral facet joint osteoart hritis. There is mild bilateral neural foraminal stenosis. There is mild central canal stenosis. L3-L4: The disc is bulging with superimposed left central extrusion. There is severe bilateral facet joint osteoarthritis. There is mild right and moderate left neural foraminal stenosis. There is mild central canal stenosis. L4-L5: The disc is bulging and has an annular fissure. There is severe bilateral facet joint osteoart hritis. There is moderate right and mild left neural foraminal stenosis. There is mild central canal stenosis. L5-S1: The disc is bulging. There is severe bilateral facet joint osteoarthritis. There is mild right neural foraminal stenosis. There is mild central canal stenosis. IMPRESSION: 1. Severe lumbar spondylosis, stable from 04/11/2023. 2. Lumbar dextroscoliosis. Reviewed, dictated and finalized at location A.
--- NOTE | ~2024-06-22 | MR_ITS ---
EXAMINATION: MR cervical spine wo con DATE: 06/22/2024 15:11 INDICATION: Radiculopathy, cervical region. Neck pain. TECHNIQUE: Magnetic resonance imaging (MRI) of the cervical spine was performed without intravenous c ontrast. COMPARISON: Cervical spine MRI 06/14/2023 FINDINGS: There is posterior subluxation of C1 with respect to C2. 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 There is 4 mm anterolisthesis of C4 on C5 and 2 mm anterolisthesis o f C6 on C7 and C7 on T1. Vertebral body heights are normal. There is severely decreased disc height a t C3-C4, mildly decreased disc height at C4-C5, and severely decreased disc height at C5-C6 and C6-C7 . The spinal cord signal intensity is normal. The following disc levels are specifically discussed: C2-C3: The disc does not extend beyond the endplate margin. There is no uncovertebral joint osteoarth ritis. There is severe bilateral facet joint osteoarthritis. There is no neural foraminal stenosis. T here is no central canal stenosis. C3-C4: The disc is bulging. There is severe bilateral uncovertebral joint osteoarthritis. There is se mary bilateral facet joint osteoarthritis. There is mild right and moderate left neural foraminal jerry nosis. There is mild central canal stenosis. C4-C5: The disc does not extend beyond the endplate margin. There is mild bilateral uncovertebral lobo nt osteoarthritis. There is severe bilateral facet joint osteoarthritis. There is no neural foraminal stenosis. There is mild central canal stenosis. C5-C6: The disc is bulging. There is severe bilateral uncovertebral joint osteoarthritis. There is mo derate bilateral facet joint osteoarthritis. There is moderate right and mild left neural foraminal s tenosis. There is mild central canal stenosis. C6-C7: The disc is bulging. There is severe bilateral uncovertebral joint osteoarthritis. There is se mary bilateral facet joint osteoarthritis. There is mild bilateral neural foraminal stenosis. There i s mild central canal stenosis. C7-T1: The disc does not extend beyond the endplate margin. There is no uncovertebral joint osteoarth ritis. There is severe bilateral facet joint osteoarthritis. There is mild bilateral neural foraminal stenosis. There is no central canal stenosis. IMPRESSION: 1. Severe cervical spondylosis, stable from 06/14/2023. Reviewed, dictated and finalized at location A.
== END 2024-06-22 14:33 ==
LOC: MICIMG 14:33
PROVIDERS: PCP Neurological Surgery; Visit Provider Clinical Nurse Specialist
DX: M43.06 Spondylolysis, lumbar region (principal); M41.86 Other forms of scoliosis, lumbar region; M43.02 Spondylolysis, cervical region
CPT/HCPCS: 72141; 72148

== ENCOUNTER 2024-08-26 14:45 | Outpatient (RCR) | payer OTHER, SELFPAY ==
--- NOTE | 2024-06-01 14:21 | OPREHPOC ---
Outpatient Therapy Plan of Care This is a Multidisciplinary Plan of Care that may contain components documented by all disciplines (PT, OT, and ST.) PT Problem 1 PT Problem #1 Knowledge Deficit PT Goal 1 Goal Pt to be IND with issued HEP Target Visit 10 PT Problem 2 PT Problem #2 Pain PT Goal 1 Goal Pt to report back pain no greater than 3/10 in the last week. Target Visit 10 PT Goal 2 Goal Pt to report 75% improvement in radicular symptoms . Target Visit 10 PT Problem 3 PT Problem #3 Impaired Strength PT Goal 1 Goal Pt to improve 5xSTS time from 18s to 15s to minimize fall risk. Target Visit 10 PT Goal 2 Goal Pt to be able to demonstrate 10 full range aleksandr heel raises to demonstrate improved ankle strength . Target Visit 10 PT Problem 4 PT Problem #4 Impaired Balance PT Goal 1 Goal Pt to demonstrate 10s single leg stance, aleksandr Target Visit 10 PT Goal 2 Goal Pt to demonstrate a 45/56 on the Rubio balance scale. Target Visit 10
--- NOTE | 2024-06-01 14:21 | PTOPEVAL1 ---
Assessment and note entered by Tara Sweet, PT, DPT Evaluation Information Assessment Status Evaluation Diagnosis unsteadiness on feet ICD-10 Condition Codes (PT) Pain in low back M54.50,Difficulty Walking R26.2, R26.9,Weakness R53.1 Subjective Information Pt reports a 2 months history of radiating low back pain down her R leg to her ankle. She reports poor compliance with her HEP since she was discharged from therapy. She is worried she is getting weaker and is going to fall. Reported Pain Level Pain Score 3: Self Report Assessment PT Clinical Summary Helena presents to therapy today for her initial evaluation with a diagnosis of unsteadiness on her feet. Today she demonstrates decreased functional balance and strength. She has worsening outcome measures compared to her discharged report earlier this year. Pt will benefit from skilled therapy services to address strength, balance, and safety deficits. Plan of Care Interventions Gait Training,Manual Therapy,Neuro Re-education, Patient/Caregiver Educati,Therapeutic Activities, Therapeutic Exercise PT Services Indicated Yes Treatment Frequency and 2x/wk for 10 visits Duration These treatments will address the objective and functional deficits as defined above. The patient will be advanced safely and appropriately in order for the patient to progress towards his/her prior level of function. Additional exercises will be introduced and as well as a comprehensive home exercise program upon discharge, if needed, ?to ensure carryover of functional gains achieved in the clinic. This treatment plan has been reviewed and agreement upon by the patient.
--- NOTE | 2024-06-10 15:18 | PCPTNOTE ---
Patient called & cancelled scheduled appointment this date due to having a scheduling conflict.
--- NOTE | 2024-06-30 09:48 | PCPTNOTE ---
Patient was canceled 06/22/24 due to therapist out with illness.
--- NOTE | 2024-07-02 11:33 | PCPTNOTE ---
Pt. called and cancelled due to illness.
--- NOTE | 2024-07-06 15:45 | PTOPPROG ---
Assessment and note entered by Tara Sweet, PT, DPT Evaluation Information Assessment Status Progress Diagnosis unsteadiness on feet ICD-10 Condition Codes (PT) Pain in low back M54.50,Difficulty Walking R26.2, R26.9,Weakness R53.1 Subjective Information Pt reports that her hips are really sore, R>L. She states her R leg is numb and it feels like it will not support her weight. States she is afraid of falling because of her R side. States she is disappointed with her progress and feels like she should be walking better by now. Pt states all she wants to do is low down with heat. She reports little to no progress so far with therapy. Pt rates her pain as a 15/10 at the worst. Pt states she was able to make her bed today. Pt states she got an injection from pain management and it lasted for 3 hours. Pt is emotional about her progress and overall health. Assessment PT Clinical Summary Pt has completed 7 visits of skilled therapy to treat her chronic pain and unsteadiness. Her therapy progress has been limited d/t her hip pain . Treatments have been focused on pain management vs balance and gait training. She is making very slow progress towards her goals. Continuation of skilled therapy services are indicated to continue working towards pain and balance goals. Plan of Care Interventions Gait Training,Manual Therapy,Neuro Re-education, Patient/Caregiver Educati,Therapeutic Activities, Therapeutic Exercise PT Services Indicated Yes Treatment Frequency and 2x/wk for 10 visits Duration These treatments will address the objective and functional deficits as defined above. The patient will be advanced safely and appropriately in order for the patient to progress towards his/her prior level of function. Additional exercises will be introduced and as well as a comprehensive home exercise program upon discharge, if needed, ?to ensure carryover of functional gains achieved in the clinic. This treatment plan has been reviewed and agreement upon by the patient.
--- NOTE | 2024-07-15 11:57 | PCPTNOTE ---
Patient called & cancelled scheduled appointment this date due to her hip popping and being unable to walk.
--- NOTE | 2024-07-23 11:54 | PCPTNOTE ---
Patient canceled this date due to illness.
--- NOTE | 2024-08-04 14:22 | PCPTNOTE ---
Patient canceled this date due to conflicting appointment.
--- NOTE | 2024-08-26 15:47 | PTOPDC ---
Assessment and note entered by Tara Sweet, PT, DPT Evaluation Information Assessment Status Discharge Diagnosis unsteadiness on feet ICD-10 Condition Codes (PT) Pain in low back M54.50,Difficulty Walking R26.2, R26.9,Weakness R53.1 Subjective Information Pt her balance is doing okay. She states her back is constantly painful, shes is in pain all the time, and all of her house work is done by her family. States doing her laundry yesterday almost killed her . States she is not doing her exercises at home. States her family just had an intervention with her to get her to eat more because they are concerned with her rapid weight loss. Reported Pain Level Pain Score 7: Self Report Assessment PT Clinical Summary Pt has completed 15 visits of skilled therapy to treat her chronic pain and unsteadiness. Her therapy progress has been limited d/t her persistent hip pain and poor exercise compliance. Pt has demonstrated regression on her outcome measures for two consecutive months. D/t poor therapy compliance and outcomes, pt will be d/c'ed at this time. Plan of Care PT Services Indicated No
== END 2024-08-26 15:51 | disposition home or self-care (01) ==
LOC: ANHGOSHPT 14:45
PROVIDERS: PCP Internal Medicine; Visit Provider Clinical Nurse Specialist
DX: R26.81 Unsteadiness on feet (principal)
CPT/HCPCS: 97014; 97110; 97112; 97140; 97161; 97530; 97750; G0283

== ENCOUNTER 2024-09-02 15:32 | Outpatient (CLI) | payer OTHER, SELFPAY ==
[2024-09-02 18:49] LABS: Basophils Absolute Auto 0.1 K/mm3 (0.0-0.1); Basophils Percent Auto 0.8 % (0.2-1.2); Eosinophils Absolute Auto 0.3 K/mm3 (0-0.3); Eosinophils Percent Auto 2.3 % (0-4.4); Hematocrit 36.9 % (37.0-47.0); Immature Granulocyte Absolute 0.05 K/mm3 (0.00-0.031); Immature Granulocyte Percent A 0.5 % (0-0.5); Lymphocytes Absolute Auto 2.76 K/mm3 (0.9-3.2); Lymphocytes Percent Auto 25.3 % (18.3-44.2); Mean Corpuscular HGB Conc 32.5 g/dl (32-36); Mean Corpuscular Hemoglobin 30.2 pg (26-34); Mean Corpuscular Volume 92.7 fl (80-100); Mean Platelet Volume 11.4 fl (7.4-10.4); Monocytes Absolute Auto 0.9 K/mm3 (0.1-0.6); Neutrophils Absolute Auto 6.9 K/mm3 (1.3-6.7); Neutrophils Percent Auto 63.1 % (45.5-73.1); Platelet Count Result 259 k/mm3 (150-375); Red Blood Count 3.98 M/mm3 (4.2-5.4); Red Cell Distribution Width 13.6 % (11.5-14.5); White Blood Count 10.9 K/mm3 (4.5-10.0)
[2024-09-02 19:55] LABS: Free T4 Free Thyroxine 1.92 ng/mL (0.78-2.19)
[2024-09-02 20:04] LABS: Alanine Aminotransferase 12 U/L (6-35); Albumin Level 4.3 g/dL (3.5-5.1); Alkaline Phosphatase 84 U/L (38-126); Anion Gap 11 mmol/L (4-12); Aspartate Amino Transferase 30 U/L (14-36); Bilirubin,Total 0.5 mg/dL (0.2-1.3); Blood Urea Nitrogen 20 mg/dL (7-17); Calcium 9.6 mg/dL (8.4-10.2); Carbon Dioxide 27 mmol/L (22-30); Chloride 100 mmol/L (98-107); Estimated Glomerular Filt Rate 37; Glucose 100 mg/dL (65-110); Potassium 4.3 mmol/L (3.4-5.0); Sodium 138 mmol/L (137-145)
== END 2024-09-02 15:33 | disposition home or self-care (01) ==
LOC: ANHGOSHLAB 15:34
PROVIDERS: PCP Internal Medicine; Visit Provider Clinical Nurse Specialist
DX: F41.9 Anxiety disorder, unspecified (principal); E03.9 Hypothyroidism, unspecified; N18.9 Chronic kidney disease, unspecified; D64.9 Anemia, unspecified
CPT/HCPCS: 36415; 80053; 84439; 84443; 85025

== ENCOUNTER 2025-01-17 11:45 | Outpatient (CLI) | payer MEDICARE, SELFPAY ==
--- OUTSIDE RECORDS SUMMARY | 2025-01-17 13:52 | XMS_ITS | Clinical Summary ---
Author Organization [facility] Address [address] [place] [address] Care Team Providers Care Speech Language Pathologist Travel Name Role Phone Unavailable Primary Care Provider Unavailabl e Social History Tobacco Use Types Packs/Day Years Used Date Smoking Tobacco: Never Assessed Comments Unknown Sex and Gender Information Value Date Recorded Sex Assigned at Not on file Legal Sex Female 5:50 PM CDT Gender Identity Not on file Sexual Orientation Not on file Plan of Treatment Health Maintenance Due Date Last Done Comments Hepatitis C 1972 DTaP, Tdap and Td Vaccines ( 1 - Tdap) 1973 Mammogram Screening 1994 Zoster Vaccines (1 of 2) 2004 Dexa Scan (General) 2019 Pneumococcal Vaccine: 65+ Ye ars (1 of 1 - PCV) 2019 COVID-19 Vaccine ( - 2023-2 5 season) 2024 Influenza Adult (#1) 2024 RSV Immunization or 60+ Years (1 - 1-dose 75+ series) 2029 Colorectal Cancer Screening Colonoscopy (10 Years) 06/02/2030 06/02/2020 Meningococcal B Vaccine Aged Out No l onger eligible based on patient's age to complete this topic Meningococcal Vaccine Aged Out No camryn georges eligible based on patient's age to complete this topic RSV Immunizations Under 20 Months Aged Out No longer eligible based on patient's age to complete this topic Procedures Procedure Name Priority Date/Time Associated Diagnosis Comments COLONOSCOPY GENERIC (SCAN ORDER) 06/02/2020 from Last 3 Months or Most Recently Relevant to Health Maintenance Results * COLONOSCOPY GENERIC (06/02/2020) 06/02/2020 Narrative 06/02/2020 Ordered by an unspecified provider. us Documents Scanned SCANNING Final Result from Last 3 Months or Most Recently Relevant to Health Maintenance
--- OUTSIDE RECORDS SUMMARY | 2025-01-17 13:52 | XMS_ITS | Encounter Summary ---
Author Organization [facility] Address [address] [place] [address] Care Team Providers Care Tank Truck Loader Name Role Phone Fidencio Obregon DO Primary Care Provider Encounter Details Date Type Department Care Team (Late st Contact Info) Description 01/14/2025 External Device Data [facility] ABSTRACTION Provider, Abstract NO ADDRESS ON FILE Social History Tobacco Use Types Packs/Day Years Used Date Smoking Tobacco: Never Alcohol Use Standard Drinks/Week Comments Never 0 (1 standard drink = 0.6 oz pur e alcohol) Comments No Sex and Gender Information Value Date Recorded Sex Assigned at Female 06/21/2023 4:10 PM CDT Legal Sex Female 1:54 PM CDT Gender Identity Female 06/21/2023 4:10 PM CDT Sexual Orientation Straight 06/21/2023 4: 10 PM CDT documented as of this encounter Plan of Treatment Not on file documented as of this encounter Visit Diagnoses Not on filedocumented in this encounter Care Teams Tank Truck Loader Relationship Specialty Start Date End Date Fidencio Obregon DO [address] [facility] [address] [place] [address] PCP - General Internal Medicine 06/26/23 documented as of this encounter
--- OUTSIDE RECORDS SUMMARY | 2025-01-17 13:52 | XMS_ITS | Referral Summary ---
Author Organization [facility] Address [address] [place] [address] Care Team Providers Care Email Marketing Coordinator Name Role Phone Fidencio Obregon DO Unavailable [phone] Fidencio Obregon DO Primary Care Provider [phone] Encounters Date Type Department Care Team Description 01/07/2025 Telephone [facility] Rheumatology [address] [facility] [address] [place] [address] [place] [address] Noemí Nguyen Carmela 12/01/2024 Orders Only [facility] Pulmonary [address] [facility] [address] [place] [address] [place] [address] Bartolome Olivares MD ILD (interstitial lung disease) (HCC) (Primary Dx) 12/01/2024 Telephone [facility] Pulmonary [address] [facility] [address] [place] [address] [place] [address] Jenny Nicole RN from Last 3 Months Allergies Active Allergy Reactions Criticality Noted Date Comments Meloxicam Vomiting Low 03/06/[address] (PROTONIX) 40 mg EC tablet 1 Active atorvastatin (LIPITOR) 10 mg tablet Take 1 tablet (10 mg total) by mouth daily 2 Active levothyroxine (SYNTHROID) 75 mcg tablet Take 1 tablet (75 mcg total) by mouth daily 2 Active ferrous sulfate 325 mg (65 mg of elemental iron) tablet Take 1 tablet (325 mg total) by mouth daily 2 Active terbinafine (LamiSIL) 250 mg tablet TAKE 1 TABLET BY MOUTH EVERY DAY FOR 12 WEEKS 2 Active lamoTRIgine (LaMICtal) 200 mg tablet Take 1 tablet (200 mg total) by mouth every morning 2 Active psyllium (METAMUCIL) powder Take 6 mg by mouth nightly as needed Active ARIPiprazole (ABILIFY) 15 mg tablet TAKE 1 TABLET BY MOUTH EVERY DAY AT DINNER FOR 30 DAYS 4 Active cyanocobalamin (vitamin B-12) 1,000 mcg tabletIndicatio ns:Prevention of Vitamin B12 Deficiency Take 1 tablet (1,000 mcg total) by mouth daily Active multivitamin tabletIndicatio ns:Vitamin Deficiency Prevention Take 1 tablet by mouth Active ascorbic acid (VITAMIN C) 100 mg tablet Take 1 tablet (100 mg total) by mouth daily Active DULoxetine DR (CYMBALTA) 60 mg capsule Take 1 tablet by mouth daily Active amLODIPine (NORVASC) 5 mg tablet TAKE 1 TABLET (5 MG TOTAL) BY MOUTH DAILY. 90 tablet 3 4 02/24/20 25 Active predniSONE (DELTASONE) 1 mg tabletIndicatio ns:Rheumatoid arthritis involving multiple sites with positive rheumatoid factor (HCC) TAKE 1 TABLET BY MOUTH EVERY DAY 90 tablet 1 4 Active leflunomide (ARAVA) 20 mg tablet TAKE 1 TABLET BY MOUTH EVERY DAY 90 tablet 1 4 Active methylPREDNISol one (MEDROL DOSEPACK) 4 mg Dosepack Take as directed on package 1 packet 5 01/14/20 25 Active Problems Problem Noted Date Diagnosed Date ILD (interstitial lung disease) 01/20/2024 Tremors of nervous system 05/28/2022 Assessment & Plan (05/28/2022 3:43 PM CDT): Ms. Gerald Calvo is a 67 y.o. female, who presents for evaluation of tremor. She developed tremor in the hands in late . The tremor improved and then worsened again in the past five year. It is still restricted to the hands. The tremor does not limit her activities during the day. She did not try any medications before. There is family history of tremor, including paternal grandfather. She also reports numbness/tingling and pain in either the right or left arm, mostly waking her up at night. On examination, there is very minimal tremor. There were no signs of parkinsonism. History and examination are compatible with tremor. Etiology of the tremor can be a very mild ET or medication-induced. The tremor is not bothersome and does not require any intervention at this point. We discussed disease pathophysiology and treatment strategies for both medication-induced and ET. as far as the arm symptoms, she should contact her spine team about it. She could have either a radiculopathy or a nerve compression that could be resulting in those symptoms. Plan: - Continue to monitor the tremor. Potential medication side effects were discussed during the encounter. Depression 03/08/2021 Anxiety 03/08/2021 HLD (hyperlipidemia) 03/08/2021 Rheumatoid arthritis involvi ng multiple sites with positive rheumatoid factor 03/08/2021 Immunizations Immunization Administration Dates Next Due Pfizer SARS-CoV-2 Monovalent Vaccination (12+ Yrs) PURPLE 01/19/2021,12/29/2020 Social History Tobacco Use Types Packs/Day Years Used Date Smoking Tobacco: Never Smokeless Tobacco: Never Tobacco Cessation:Counseling Given: Not Answered AUDIT-C Answer Date Recorded Frequency of Alcohol Consumption Not on file 02/03/2024 Q2: How many drinks containi ng alcohol do you have on a typical day when you are drinking? Patient does not drink Frequency of Binge Drinking Not on file 01/09 Comments Unknown Sex and Gender Information Value Date Recorded Sex Assigned at Not on file Legal Sex Female 10:35 PM EGG AND SPICE MIXER Gender Identity Female 11/29/2022 2:33 PM EGG AND SPICE MIXER Sexual Orientation Straight 11/29/2022 2: 33 PM EGG AND SPICE MIXER Occupation Industry Job Start Date Job End Date Retired Not on file Not on file Not on file Last Filed Vital Signs Vital Sign Reading Time Taken Comments Blood Pressure 100/67 02/03/2024 1:52 PM CDT Pulse 66 02/03/2024 1:52 PM CDT Temperature 36.4 C (97.5 F) 02/03/2024 1:52 PM CDT Respiratory Rate 18 01/20/2024 3:01 PM CDT Oxygen Saturation 99% 02/03/2024 1:52 PM CDT Inhaled Oxygen Concentration - - Weight 44.3 kg (97 lb 9.6 oz) 02/03/2024 1:52 PM CDT Height 152.4 cm (5') 02/03/2024 1:52 PM CDT Body Mass Index 19.06 02/03/2024 1:52 PM CDT Plan of Treatment Not on file Procedures Procedure Name Priority Date/Time Associated Diagnosis Comments DEXA AXIAL SKELETON BONE DENSITY 1 OR MORE SITES Schedule Routine, Read Routine (OP Routine) 01/31/2022 8:48 AM CDT Age-related osteoporosis without current pathological fracture from Last 3 Months or Most Recently Relevant to Health Maintenance Results * Dexa Axial Skeleton Bone Density 1 or 2 Site (01/31/2022 8:48 AM CDT) Anatomical Region Laterality Modality Body N/A Radiographic Paola ging Narrative 02/05/2022 12:34 PM CDT Patient Name: Gerald Calvo Date of : 1955 Date of scan: 01/31/2022 Bone mineral density was performed on a [employer] Discovery Densitometer. Based on machine cross-calibration and precision studies the least significant changes of this densitometer is 0.024 g/cm2 at the spine, 0.020 g/cm2 at the total proximal femur, and 0.014g/cm2 at the forearm. HISTORY: This is a 67 y.o. postmenopausal female with a history of low bone mass and rheumatoid arthritis. She reports that she has never smoked. She has never used smokeless tobacco. Currently on treatment with glucocorticoids, previously treated with alendronate (Fosamax), zoledronic acid (Reclast) and thyroid hormone and current complaint of back pain. INDICATIONS: Menopause status, treatment monitoring, history of glucocorticoids use, currently on 3 mg of glucocorticoids for the past 3 year(s) and history of low bone mass. FINDINGS: BONE MINERAL DENSITY OF THE LUMBAR SPINE Bone Mineral Density (BMD) of the lumbar spine was measured from L1-L2 and the average density was calculated to be 0.726 gm/cm2. This corresponds to a T-score (standard deviations from the mean of young adults) of -2.3. There is no previous study available for comparison. BONE MINERAL DENSITY OF THE PROXIMAL FEMUR Bone Mineral Density (BMD) of the left hip total was found to be 0.607 gm/cm2. This corresponds to a T-score standard deviations from the mean of young adults of -2.7. Femoral neck is 0.539 gm/cm2 with a T-score (standard deviations from the mean of young adults) of -2.8. There is no previous study available for comparison. FINDINGS: BONE MINERAL DENSITY OF THE FOREARM Bone Mineral density (BMD) of the left proximal 1/3 of the radius measures 0.632 gm/cm2. This corresponds to a T-score (standard deviations from the mean of young adults) of -1.0. There is no previous study available for comparison. A forearm bone density study was performed in addition to the routine study because of severe degenerative disease. SUMMARY: Bone mineral density shows evidence of osteoporosis and marked increase risk of fracture. L3 and L4 excluded from bone mineral density analysis of the lumbar spine because of bone density being more than 1 standard deviation discrepant relative to one adjacent vertebra. Clinical correlation is recommended. ADDITIONAL COMMENTS: Postmenopausal Women and Men Over 50: Diagnostic criteria: Osteoporosis: BMD at or below -2.5 T-score; Osteopenia (low bone mass): BMD between -1.0 and -2.5 T-score. If the patient has a history of a fragility fracture, a fracture that occurred with trauma equivalent to a fall from a standing position or less, then the diagnosis is osteoporosis regardless of bone density. The history and data sections of the bone mineral density scan were prepared by Ashley Lemus (R)(CBDT) who is accredited by the International Society of Clinical Densitometry. The overall patient assessment and scan interpretation were performed by Consuelo Jones M.D. who is certified by the International Society of Clinical Densitometry. [id number] Evelina Rodriguez NP IMG DXA PROCEDURES Karen l Result from Last 3 Months or Most Recently Relevant to Health Maintenance Insurance [address] [place] [id number] [facility] Care Teams Email Marketing Coordinator Relationship Specialty Start Date End Date Fidencio Obregon DO PCP - General Internal Medicine 05/22/22 Fidencio Obregon DO Surgeon Internal Medicine 03/04/22
--- OUTSIDE RECORDS SUMMARY | 2025-01-17 13:52 | XMS_ITS | Clinical Summary ---
Author Organization [facility] Address [address] [place] [address] Care Team Providers Care Coal Crusher Operator Name Role Phone Fidencio Obregon DO Unavailable [phone] Fidencio Obregon DO Primary Care Provider [phone] Allergies Active Allergy Reactions Criticality Noted Date [...] & Plan (05/28/2022 3:43 PM CDT): Ms. Helena Calvo is a 67 y.o. female, who [...] multiple sites with positive rheumatoid factor 03/08/2021 Encounters Date Type Department Care Team Description 01/07/2025 Telephone [facility] Rheumatology [address] [facility] [address]th [place] [address] [place] [address] Noemí Nguyen, A 12/01/2024 Orders Only [facility] Pulmonary [address] [facility] 8th [place] [address] [place] [address] Bartolome Olivares MD ILD (interstitial lung disease) (HCC) (Primary Dx) 12/01/2024 Telephone [facility] [address] [facility] [address] [place] [address] [place] [address] Jenny Nicole RN from Last 3 Months Immunizations Immunization Administration Dates Next Due Pfizer SARS-CoV-2 Monovalent Vaccination (12+ Yrs) PURPLE 01/19/2021,12/29/2020 Medical History Medical History Date Comments Bipolar disorder, in partial remission, most rec ent episode mixed (HCC) Family History Medical History Relation Name Comments Tremor Paternal Grandfather Dementia Neg Hx Parkinsonism Neg Hx Relation Name Status Comments Paternal Grandfather Social History Tobacco Use Types Packs/Day Years [...] on file Legal Sex Female 10:35 PM PERSON INVESTIGATOR Gender Identity Female 11/29/2022 2:33 PM PERSON INVESTIGATOR Sexual Orientation Straight 11/29/2022 2: 33 PM PERSON INVESTIGATOR Occupation Industry Job Start Date Job End Date Retired Not on file Not on file Not on file Obstetrics History Last Filed Vital Signs Vital Sign Reading [...] 02/03/2024 1:52 PM CDT Plan of Treatment Health Maintenance Due Date Last Done Comments Breast Cancer Screening-Mammogram 1955 Colon Cancer Screening-Colonoscopy 1955 Fall Risk Assessment 1955 Hepatitis C Screening 1955 DTaP/Tdap/Td Vaccine (1 - Tdap) 1965 Hepatitis B Screening 1972 Zoster Vaccine (1 of 2) 2004 Well Visit 65+ 2019 Pneumococcal vaccine 65+ (2 of 2 - PCV) 10/02/2021 10/02/2020 Depression Screening 05/28/2023 05/28/2022 Osteoporosis Screening-Bone Density Scan 02/01/2024 01/31/2022, 01/31/2022 Covid-19 Vaccine ( season) 2024 11/14/2021, 01/19/2021, 12/29/2020 Influenza Vaccine (#1) 2024 11/14/2021, 2019 Procedures Procedure Name Priority Date/Time Associated Diagnosis [...] Narrative 02/05/2022 12:34 PM CDT Patient Name: Helena Calvo Date of : 1955 Date of scan: 01/31/2022 Bone mineral density was performed on a [employer] Discovery Densitometer. Based on machine cross-calibration and [...] by the International Society of Clinical Densitometry. [id number] Evelina Rodriguez NP IMG DXA PROCEDURES Karen l Result from Last 3 Months or Most Recently Relevant to Health Maintenance Insurance [facility] AETNA MEDICARE Care Teams Coal Crusher Operator Relationship Specialty Start Date End Date Fidencio Obregon DO PCP - General Internal Medicine 05/22/22 Fidencio Obregon DO Surgeon Internal Medicine 03/04/22
--- OUTSIDE RECORDS SUMMARY | 2025-01-17 13:52 | XMS_ITS | Clinical Summary ---
Author Organization [facility] Address [address] [place] [address] Phone Care Team Providers Care Sewage Screen Operator Name Role Phone StephaniesladeFidencio prince Primary Care Provider Allergies No known active allergies Medications atorvastatin (LIPITOR) 10 mg tablet Take 10 mg by mouth daily. 02/19/2022 Active ferrous sulfate 325 mg (65 mg iron) tablet Take 1 Tablet by mouth daily. 10/23/2022 Active levothyroxine 75 mcg tablet Take 75 mcg by mouth daily. 06/19/2022 Active lamoTRIgine (LaMICtal) 200 mg tablet Take 200 mg by mouth. 11/08/2022 Active pantoprazole (PROTONIX) 40 mg Tablet, Delayed Release (E.C.) Take 40 mg by mouth daily. 10/06/2021 Active predniSONE (DELTASONE) 1 mg tablet Take 1 mg by mouth daily with breakfast. 03/10/2023 Active terbinafine HCL (LamISIL) 250 mg tablet Take 250 mg by mouth daily. 08/29/2022 Active ARIPiprazole (ABILIFY) 1 mg/mL solution Take 2 mg by mouth daily. Active psyllium seed (PSYLLIUM ORAL) Take 6 mg by mouth nightly as needed for Pain. Active megestroL (MEGACE) 400 mg/10 mL (40 mg/mL) suspension TAKE 10 ML (400 MG) BY MOUTH DAILY. 240 mL 1 10/11/2024 Active Active Problems No known active problems Encounters Date Type Department Care Team Description 01/14/2025 External Device Data [facility] ABSTRACTION Provider, Abstract 12/29/2024 External Device Data [facility] ABSTRACTION Provider, Abstract 12/29/2024 External Device Data [facility] ABSTRACTION Provider, Abstract 12/14/2024 External Device Data [facility] ABSTRACTION Provider, Abstract 12/07/2024 External Device Data [facility] ABSTRACTION Provider, Abstract from Last 3 Months Family History Relation Name Status Comments Brother 1 Alive Brother 2 Alive Brother 3 Alive Father Mother Alive Sister 1 Alive Sister 2 Alive Son Alive Social History Tobacco Use Types Packs/Day Years Used Date Smoking Tobacco: Never Tobacco Cessation:Counseling Given: Not Answered Alcohol Use Standard Drinks/Week Comments Never 0 (1 standard drink = 0.6 oz pur e alcohol) Comments No Sex and Gender Information Value Date Recorded Sex Assigned at Female 06/21/2023 4:10 PM CDT Legal Sex Female 1:54 PM CDT Gender Identity Female 06/21/2023 4:10 PM CDT Sexual Orientation Straight 06/21/2023 4: 10 PM CDT Last Filed Vital Signs Vital Sign Reading Time Taken Comments Blood Pressure 96/65 04/26/2024 2:11 PM CDT Pulse 105 04/26/2024 2:11 PM CDT Temperature 36.6 C (97.9 F) 04/26/2024 2:11 PM CDT Respiratory Rate 14 04/26/2024 2:11 PM CDT Oxygen Saturation 94% 04/26/2024 2:11 PM CDT Inhaled Oxygen Concentration - - Weight 40.3 kg (88 lb 12.8 oz) 04/26/2024 2:11 P M CDT Height 160 cm (5' 3 ) 05/29/2023 10:50 AM CDT Body Mass Index 15.73 05/29/2023 10:50 AM CDT Plan of Treatment Health Maintenance Due Date Last Done Comments DTAP/TDAP/TD VACCINES (1 - Tdap) 1973 BREAST CANCER SCREENING 1994 FIT-DNA Q 3 years 1999 FIT/FOBT Q 1 year 1999 Flex Sig/CT Colonography Q 5 years 1999 PNEUMOCOCCAL VACCINE 50+ YEA RS (1 of 1 - PCV) 2004 ZOSTER VACCINE (1 of 2) 2004 RSV VACCINE (60+ or ) (1 - Risk 60-74 years 1-dose series) 2014 INFLUENZA VACCINE (#1) 2024 08/22/2023 COVID-19 Vaccine ( season) 07/11/202410/2021, 12/29/2020 [place] Prev entative Visit/Annual Wellness Visit 11/10/2024 COLORECTAL SCREENING 06/02/2030 06/02/2020 Colorectal Cancer Screening 06/02/2030 OSTEOPOROSIS SCREENING Completed 01/31/2022, 2021 Insurance Member Subscriber Plan / Payer (Ef fective 2021-Present) Name:Helena Calvo Relation to Subscriber:Self Name:Helena Calvo Payer ID:[id number] (NAIC) Type:O Address: [place] [id number] Member Subscriber Plan / Payer (Ef fective 2021-Present) Name:Helena Calvo Relation to Subscriber:Self Name:Helena Calvo Payer ID:[id number] (NAIC) Type:O Address: [place] [id number] Care Teams Sewage Screen Operator Relationship Specialty Start Date End Date Fidencio Obregon DO [address] [facility] [address] [place] [address] PCP - General Internal Medicine 06/26/23
[2025-01-17 14:11] LABS: Basophils Percent Auto 0.5 % (0.2-1.2); Eosinophils Absolute Auto 0.2 K/mm3 (0-0.3); Eosinophils Percent Auto 3.1 % (0-4.4); Hematocrit 30.8 % (37.0-47.0); Hemoglobin 9.4 g/dL (12.0-15.0); Immature Granulocyte Absolute 0.03 K/mm3 (0.00-0.031); Immature Granulocyte Percent A 0.5 % (0-0.5); Lymphocytes Absolute Auto 1.38 K/mm3 (0.9-3.2); Lymphocytes Percent Auto 21.3 % (18.3-44.2); Mean Corpuscular HGB Conc 30.5 g/dl (32-36); Mean Corpuscular Hemoglobin 27.5 pg (26-34); Mean Corpuscular Volume 90.1 fl (80-100); Monocytes Absolute Auto 0.4 K/mm3 (0.1-0.6); Monocytes Percent Auto 5.7 % (2.6-8.5); Neutrophils Absolute Auto 4.5 K/mm3 (1.3-6.7); Neutrophils Percent Auto 68.9 % (45.5-73.1); Platelet Count Result 229 k/mm3 (150-375); Red Blood Count 3.42 M/mm3 (4.2-5.4); Red Cell Distribution Width 19.2 % (11.5-14.5); White Blood Count 6.5 K/mm3 (4.5-10.0)
[2025-01-17 14:41] LABS: Alanine Aminotransferase 13 U/L (6-35); Albumin Level 3.8 g/dL (3.5-5.1); Alkaline Phosphatase 105 U/L (38-126); Anion Gap 8 mmol/L (4-12); Aspartate Amino Transferase 29 U/L (14-36); Bilirubin,Total 0.3 mg/dL (0.2-1.3); Blood Urea Nitrogen 16 mg/dL (7-17); Calcium 9.2 mg/dL (8.4-10.2); Carbon Dioxide 27 mmol/L (22-30); Chloride 98 mmol/L (98-107); Estimated Glomerular Filt Rate 33; Glucose 114 mg/dL (65-110); Potassium 3.9 mmol/L (3.4-5.0); Sodium 133 mmol/L (137-145)
== END 2025-01-17 11:46 | disposition home or self-care (01) ==
PROVIDERS: PCP Internal Medicine; Visit Provider Student in an Organized Health Care Education/Training Program
DX: N18.31 Chronic kidney disease, stage 3a (principal); E03.9 Hypothyroidism, unspecified; D64.9 Anemia, unspecified
CPT/HCPCS: 36415; 80053; 84443; 85025

== ENCOUNTER 2025-02-23 15:00 | Outpatient (CLI) | payer MEDICARE, SELFPAY ==
--- OUTSIDE RECORDS SUMMARY | 2025-02-23 16:15 | XMS_ITS | Encounter Summary ---
Author Organization [facility] Address [address] [place] [address] Phone Care Team Providers Care Patient Consumer Marketer Name Role Phone Fidencio Obregon DO Unavailable [phone] Fidencio Obregon DO Primary Care Provider [phone] Encounter Details Date Type Department Care Team (Late st Contact Info) Description 02/07/2025 Results Follow-Up [facility] Rheumatology [address] [facility] [address] [place] [address] Evelina Rodriguez, DECKHAND OYSTER DREDGE [address] [place] [address] Social History Tobacco Use Types Packs/Day Years Used Date Smoking Tobacco: Never Smokeless Tobacco: Never AUDIT-C Answer Date Recorded Frequency of Alcohol Consumption Not on file 02/03/2024 Q2: How many drinks containi ng alcohol do you have on a typical day when you are drinking? Patient does not drink Frequency of Binge Drinking Not on file 01/09 Comments Unknown Sex and Gender Information Value Date Recorded Sex Assigned at Not on file Legal Sex Female 10:35 PM COUNTY HISTORIAN Gender Identity Female 11/29/2022 2:33 PM COUNTY HISTORIAN Sexual Orientation Straight 11/29/2022 2: 33 PM COUNTY HISTORIAN Occupation Industry Job Start Date Job End Date Retired Not on file Not on file Not on file documented as of this encounter Plan of Treatment Not on file documented as of this encounter Visit Diagnoses Not on filedocumented in this encounter Care Teams Patient Consumer Marketer Relationship Specialty Start Date End Date Fidencio Obregon DO PCP - General Internal Medicine 05/22/22 Fidencio Obregon DO Surgeon Internal Medicine 03/04/22 documented as of this encounter
--- OUTSIDE RECORDS SUMMARY | 2025-02-23 16:15 | XMS_ITS | Referral Summary ---
Author Organization [facility] Address [address] [place] [address] Care Team Providers Care Academy Director Name Role Phone Fidencio Obregon DO Unavailable [phone] Fidencio Obregon DO Primary Care Provider [phone] Encounters Date Type Department Care Team Description 02/08/2025 Orders Only [facility] Pulmonary [address] [facility] 8th [place] [address] Bartolome Olivares MD ILD (interstitial lung disease) (HCC) (Primary Dx) 02/07/2025 Results Follow-Up [facility] Rheumatology [address] [place] [address] Medical Office Building [address] [place] [id number] Evelina Rodriguez NP 02/07/2025 9:45 AM CDT Lab [facility] at [address] [address] Rheumatoid arthritis involving multiple sites with positive rheumatoid factor (HCC) 02/07/2025 9:20 AM CDT Office Visit [facility] Rheumatology [address] [place] [address] Office Building [address] [place] [phone] Evelina Rodriguez NP Rheumatoid arthritis involving multiple sites with positive rheumatoid factor (HCC) (Primary Dx); ILD (interstitial lung disease) (HCC); High risk medication use; 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 01/31/2025 Telephone [facility] Rheumatology [address] [place] [address] Jershelly Paddy Mishraise 01/07/2025 Telephone [facility] Rheumatology [address] [facility] 5th [place] [address] Patrick Noemí ALECarmela 12/01/2024 Orders Only [facility] Pulmonary [address] [facility] 8th [place] [address] Bartolome Olivares MD ILD (interstitial lung disease) (FORM[facility]LY [facility]) (Primary Dx) 12/01/2024 Telephone [facility] Pulmonary [address] [facility] 8th [place] [address] Jenny Nicole RN from Last 3 Months Allergies Active Allergy Reactions Criticality Noted Date Comments Meloxicam Vomiting Low 03/06/[address] (PROTONIX) 40 mg EC tablet 1 Active levothyroxine (SYNTHROID) 75 mcg tablet Take 1 tablet (75 mcg total) by mouth daily 2 Active amLODIPine (NORVASC) 5 mg tablet TAKE 1 TABLET (5 MG TOTAL) BY MOUTH DAILY. 90 tablet 3 4 Active predniSONE (DELTASONE) 5 mg tabletIndicatio ns:Rheumatoid arthritis involving multiple sites with positive rheumatoid factor ([facility]) Take 1 tablet (5 mg) by mouth daily 90 tablet 1 5 Active atorvastatin (LIPITOR) 10 mg tablet Take 1 tablet (10 mg total) by mouth daily 2 02/08/20 25 Discontinu ed(Therapy completed) ferrous sulfate 325 mg (65 mg of elemental iron) tablet Take 1 tablet (325 mg total) by mouth daily 2 02/08/20 25 Discontinu ed(Therapy completed) terbinafine (LamiSIL) 250 mg tablet TAKE 1 TABLET BY MOUTH EVERY DAY FOR 12 WEEKS 2 02/08/20 25 Discontinu ed(Therapy completed) lamoTRIgine (LaMICtal) 200 mg tablet Take 1 tablet (200 mg total) by mouth every morning 2 02/08/20 25 Discontinu ed(Therapy completed) psyllium (METAMUCIL) powder Take 6 mg by mouth nightly as needed 02/08/20 25 Discontinu ed(Therapy completed) ARIPiprazole (ABILIFY) 15 mg tablet TAKE 1 TABLET BY MOUTH EVERY DAY AT DINNER FOR 30 DAYS 4 02/08/20 25 Discontinu ed(Therapy completed) cyanocobalamin (vitamin B-12) 1,000 mcg tabletIndicatio ns:Prevention of Vitamin B12 Deficiency Take 1 tablet (1,000 mcg total) by mouth daily 02/08/20 Discontinu ed(Therapy completed) multivitamin tabletIndicatio ns:Vitamin Deficiency Prevention Take 1 tablet by mouth 02/08/20 25 Discontinu ed(Therapy completed) ascorbic acid (VITAMIN C) 100 mg tablet Take 1 tablet (100 mg total) by mouth daily 02/08/20 25 Discontinu ed(Therapy completed) DULoxetine DR (CYMBALTA) 60 mg capsule Take 1 tablet by mouth daily 02/08/20 25 Discontinu ed(Therapy completed) predniSONE (DELTASONE) 1 mg tabletIndicatio ns:Rheumatoid arthritis involving multiple sites with positive rheumatoid factor (HCC) TAKE 1 TABLET BY MOUTH EVERY DAY 90 tablet 1 4 02/08/20 25 Discontinu ed(Reorder ) leflunomide (ARAVA) 20 mg tablet TAKE 1 TABLET BY MOUTH EVERY DAY 90 tablet 1 4 02/08/20 25 Discontinu ed(Therapy completed) Active Problems Problem Noted Date Diagnosed Date [...] on file Legal Sex Female 10:35 PM MANAGER BEAUTY Gender Identity Female 11/29/2022 2:33 PM MANAGER BEAUTY Sexual Orientation Straight 11/29/2022 2: 33 PM MANAGER BEAUTY Occupation Industry Job Start Date Job End Date Retired Not on file Not on file Not on file Last Filed Vital Signs Vital Sign Reading Time Taken Comments Blood Pressure 102/66 02/07/2025 9:12 AM CDT Pulse 78 02/07/2025 9:12 AM CDT Temperature 36.8 C (98.2 F) 02/07/2025 9:12 AM CDT Respiratory Rate 18 01/20/2024 3:01 PM CDT Oxygen Saturation 96% 02/07/2025 9:12 AM CDT Inhaled Oxygen Concentration - - Weight 40.8 kg (90 lb) 02/07/2025 9:12 AM CDT Height 160 cm (5' 3 ) 02/07/2025 9:12 AM CDT Body Mass Index 15.94 02/07/2025 9:12 AM CDT Plan of Treatment Not on file Procedures Procedure Name Priority Date/Time Associated Diagnosis Comments EGFR Routine 02/07/2025 9:28 AM CDT Rheumatoid arthritis involving multiple sites with positive rheumatoid factor (HCC) DIFFERENTIAL AUTO Routine 02/07/2025 9:2 8 AM CDT Rheumatoid arthritis involving multiple sites with positive rheumatoid factor (HCC) CBC WITH AUTO DIFFERENTIAL Routine 02/07/2025 9:28 AM CDT Rheumatoid arthritis involving multiple sites with positive rheumatoid factor (HCC) COMPREHENSIVE METABOLIC PANEL Routine 02/07/2025 9:28 AM CDT Rheumatoid arthritis involving multiple sites with positive rheumatoid factor (HCC) CRP (ACUTE PHASE) Routine 02/07/2025 9:2 8 AM CDT Rheumatoid arthritis involving multiple sites with positive rheumatoid factor (HCC) ERYTHROCYTE SEDIMENTATION RATE Routine 02/07/2025 9:28 AM CDT Rheumatoid arthritis involving multiple sites with positive rheumatoid factor (HCC) DEXA AXIAL SKELETON BONE DENSITY 1 OR MORE SITES Schedule Routine, Read Routine (OP Routine) 01/31/2022 8:48 AM CDT Age-related osteoporosis without current pathological fracture from Last 3 Months or Most Recently Relevant to Health Maintenance Results * (ABNORMAL) eGFR (02/07/2025 9:28 AM CDT) eGFR 48(L) >=60 mL/min/1. 73 m2 Comment: Interpretive Data Reference Interval Normal >/= 90 mL/min/1.73m2 Mildly decreased* 60 - 89 mL/min/1.73m2 Mildly to moderately decreased 45 - 59 mL/min/1.73m2 Moderately to severely decreased 30 - 44 mL/min/1.73m2 Severely decreased 15 - 29 mL/min/1.73m2 Kidney Failure < 15 mL/min/1.73m2 *Relative to young adult level Estimated glomerular filtration rate is determined by the 2020 CKD-EPI equation recommended by the National Kidney Foundation (A Unifying Approach to GFR Estimation: Recommendations of the NKF-ASK Task Force on Reassessing the Inclusion of Race in Diagnosing Kidney Disease, JASN 2020). The CKD-EPI equation should not be used for patients with unstable renal function and has not been validated in children and those over 70. Current interpretive data was last reviewed 2021. Testing performed by: [facility], [address] [place] [address] Blood 02/07/2025 9:28 AM CDT 02/07/2025 9:56 AM CDT Evelina Rodriguez NP LAB BLOOD ORDERABLES nal Result [facility] [address] [place] [address] * Differential, auto (02/07/2025 9:28 AM CDT) Neutrophil abs 6.0 1.5 - 6.5 K/cumm Comment:Testing performed by : [facility], [facility] [address], [address] [place] [address] Imm gran abs 0.1 0.0 - 0.1 K/cumm [place]OR [place] Comment:Testing performed by : [facility], [facility] [address], [address] [place] [address] Lymphocyte abs 1.8 0.8 - 3.3 K/cumm [place] Comment:Testing performed by : [facility], [facility] [address], [address] [place] [address] Monocyte abs 0.7 0.2 - 0.8 K/cumm [place] Comment:Testing performed by : [facility], [facility] [address], [address] [place] [address] Eosinophil abs 0.2 0.0 - 0.5 K/cumm CERNER B[facility] Comment:Testing performed by : [facility], [facility] [address], [address] [place] [address] Basophil abs 0.1 0.0 - 0.1 K/cumm CERNER [facility] Comment:Testing performed by : [facility], [facility] [address], [address] [place] [address] Neutrophil pct 67.7 % CERNER [facility] Comment: Interpretive Data Percent cell count reference ranges are not reported, since discordance with absolute values may lead to misinterpretation of CBC data. Current Interpretive Data was last revised on 2018. Testing performed by: [facility], [facility] [address], [address] [place] [address] Imm gran pct 0.6 % CERNER [facility] Comment: Interpretive Data Percent cell count reference ranges are not reported, since discordance with absolute values may lead to misinterpretation of CBC data. Current Interpretive Data was last revised on 2018. Testing performed by: [facility], [facility] [address], [address] [place] [address] Lymphocyte pct 20.8 % CERNER [facility] Comment: Interpretive Data Percent cell count reference ranges are not reported, since discordance with absolute values may lead to misinterpretation of CBC data. Current Interpretive Data was last revised on 2018. Testing performed by: [facility], [facility] [address], [address] [place] [address] Monocyte pct 8.3 % CERNER [facility] Comment: Interpretive Data Percent cell count reference ranges are not reported, since discordance with absolute values may lead to misinterpretation of CBC data. Current Interpretive Data was last revised on 2018. Testing performed by: [facility], [facility] [address], [address] [place] [address] Eosinophil pct 2.0 % CERNER [facility] Comment: Interpretive Data Percent cell count reference ranges are not reported, since discordance with absolute values may lead to misinterpretation of CBC data. Current Interpretive Data was last revised on 2018. Testing performed by: [facility] 2, [address] [place] [address] Basophil pct 0.6 % MINOR [place] Comment: Interpretive Data Percent cell count reference ranges are not reported, since discordance with absolute values may lead to misinterpretation of CBC data. Current Interpretive Data was last revised on 2018. Testing performed by: [facility] 2, [address] [place] [address] Blood 02/07/2025 9:28 AM CDT 02/07/2025 9:49 AM CDT Evelina Rodriguez LABOR CONCILIATOR LAB BLOOD ORDERABLES nal Result [facility] [address] [facility]. [place] [address] * (ABNORMAL) CBC with auto differential (02/07/2025 9:28 AM CDT) WBC 8.8 3.8 - 9.9 K/cumm Comment:Testing performed by : [facility] 2, [address] [place] [address] Hgb 9.8(L) 11.9 - 15.5 g/dL [place] Comment:Testing performed by : [address] [place] [address] Hct 31.5(L) 35.6 - 45.5 % [place] Comment:Testing performed by : [place] [address], [address] [place] [address] Plt 296 150 - 400 K/cumm [place] Comment:Testing performed by : [facility] 2, [address] [place] [address] MPV 9.4 9.1 - 12.3 fL [place] Comment:Testing performed by : [facility] 2, [address] [place] [address] RBC 3.65(L) 3.90 - 5.20 M/cumm [place] [place] Comment:Testing performed by : [facility] 2, [address] [place] [address] MCV 86.3 81.3 - 96.4 fL [facility] Comment:Testing performed by : [place] [address], [address] [place] [address] MCH 26.8(L) 27.1 - 33.3 pg [facility] Comment:Testing performed by : [place] [address], [address] [place] [address] MCHC 31.1(L) 32.3 - 35.7 g/dL [facility] Comment:Testing performed by : [place] [address], [address] [place] [address] RDW CV 18.2(H) 11.1 - 14.9 % [facility] Comment:Testing performed by : [place] [address], [address] [place] [address] RDW SD 57.6(H) 35.7 - 48.1 fL [facility] Comment:Testing performed by : [place] [address], [address] [place] [address] Blood 02/07/2025 9:28 AM CDT 02/07/2025 9:49 AM CDT us Evelina Rodriguez LABOR CONCILIATOR LAB BLOOD ORDERABLES Fi nal Result [facility] [address] [facility] Department of Laboratories [place], [place] [id number] * (ABNORMAL) Erythrocyte sedimentation rate (02/07/2025 9:28 AM CDT) Pathologist [facility] Erythrocyte sedimentation rate 58(H) 1 - 30 mm/hr Comment:Testing performed by : [facility], [address] [place] [address] Blood 02/07/2025 9:28 AM CDT 02/07/2025 10:23 AM CDT Evelina Rodriguez LABOR CONCILIATOR LAB BLOOD ORDERABLES Fi nal Result Performing Organization Address City/[facility]/ZIP Co de Phone Number [facility] [address] [place] [address] * (ABNORMAL) CRP (acute phase) (02/07/2025 9:28 AM CDT) CRP 48.5(H) <=10.0 mg/L Comment:Testing performed by : [facility], [address] [place] [address] Blood 02/07/2025 9:28 AM CDT 02/07/2025 9:56 AM CDT Evelina Rodriguez LABOR CONCILIATOR LAB BLOOD ORDERABLES Fi nal Result Performing Organization Address City/[facility] Co de Phone Number [facility] [address] [facility] [place] [address] * (ABNORMAL) Comprehensive metabolic panel (02/07/2025 9:28 AM CDT) Sodium 138 135 - 145 mmol/L Comment:Testing performed by : [facility], [address] [place] [address] Potassium, pl 4.5 3.3 - 4.9 mmol/L CERPAIGE BJWCH Comment:Testing performed by : [facility], [address], [place] [address] Chloride 103 97 - 110 mmol/L CERPAIGE [facility] Comment:Testing performed by : [facility], [address] [place] [address] CO2 25 22 - 32 mmol/L CERPAIGE [facility] Comment:Testing performed by : [facility], [address], [place] [address] Anion gap 10 2 - 15 mmol/L CERNER [facility] Comment:Testing performed by : [facility], [address], [place] [address] BUN 13 6 - 25 mg/dL CERNER [facility]WCH Comment:Testing performed by : [facility], [address], [place] [address] Creatinine 1.21(H) 0.60 - 1.10 mg/dL CERNER [facility] Comment:Testing performed by : [facility], [address], [place] [address] Glucose 100 70 - 199 mg/dL CERNER [facility] Comment: Interpretive Data Fasting glucose >/= 126 mg/dl is diagnostic for diabetes. Fasting is defined as no caloric intake for at least 8 hours. Fasting glucose between 100 mg/dl to 125 mg/dl is diagnostic of prediabetes. In a patient with classic symptoms of hyperglycemia or hyperglycemic crisis, a random glucose >/= 200 mg/dl is diagnostic for diabetes. In the absence of unequivocal hyperglycemia, results should be confirmed by repeat testing. The classification and Diagnosis of Diabetes Diabetes Care 2021; 46: S19-S40. Current interpretive data was last revised 2022. Testing performed by: [facility], [address], [place] [address] Calcium 9.5 8.5 - 10.3 mg/dL CERNER [facility] Comment:Testing performed by : [facility], [address], [place] [address] Bilirubin, total 0.2 0.1 - 1.2 mg/dL CERNER [facility] Comment:Testing performed by : [facility], [address], [place] [address] Protein, pl 7.2 6.5 - 8.5 g/dL CERNER [facility] Comment:Testing performed by : [facility], [address], [place] [address] Albumin 3.5 3.5 - 5.0 g/dL CERNER [facility] Comment:Testing performed by : [facility], [address] [place] [address] Alk phos 126 40 - 130 Units/L [place] Comment:Testing performed by : [facility], [address], [place] [address] ALT 8 7 - 45 Units/L [place] Comment:Testing performed by : [facility], [address], [address], [place] [address] AST 20 10 - 45 Units/L [place] Comment:Testing performed by : [facility], [address], [place] [address] Blood 02/07/2025 9:28 AM CDT 02/07/2025 9:56 AM CDT us Evelina Rodriguez NP LAB BLOOD ORDERABLES Fi nal Result [facility] [address] [place] [address] * Dexa Axial Skeleton Bone Density 1 or 2 Site (01/31/2022 8:48 AM CDT) Anatomical Region Laterality Modality Body N/A Radiographic Paola ging Narrative 02/05/2022 12:34 PM CDT Patient Name: Gerald Calvo Date of : 1955 Date of scan: 01/31/2022 Bone mineral density was performed on a [employer] Discovery Densitometer. Based on machine cross-calibration and [...] by the International Society of Clinical Densitometry. [id number] Evelina Rodriguez LABOR CONCILIATOR IMG DXA PROCEDURES Karen l Result from Last 3 Months or Most Recently Relevant to Health Maintenance Insurance [employer] MEDICARE GOLD [employer] MEDICARE GOLD Care Teams Academy Director Relationship Specialty Start Date End Date Fidencio Obregon DO PCP - General Internal Medicine 05/22/22 Fidencio Obregon DO Surgeon Internal Medicine 03/04/22
--- OUTSIDE RECORDS SUMMARY | 2025-02-23 16:15 | XMS_ITS | Clinical Summary ---
Author Organization [facility] Address [address] [place] [address] Care Team Providers Care Production Intern Name Role Phone Fidencio Obregon DO Unavailable [phone] Fidencio Obregon DO Primary Care Provider [phone] Allergies Active Allergy Reactions Criticality Noted Date [...] multiple sites with positive rheumatoid factor (HCC) Take 1 tablet (5 mg) by mouth [...] EVERY DAY FOR 12 WEEKS 2 02/08/20 Discontinu ed(Therapy completed) lamoTRIgine (LaMICtal) 200 mg tablet Take 1 tablet (200 mg total) by mouth every morning 2 02/08/20 Discontinu ed(Therapy completed) psyllium (METAMUCIL) powder Take 6 mg by mouth nightly as needed 02/08/20 Discontinu ed(Therapy completed) ARIPiprazole (ABILIFY) 15 mg tablet TAKE 1 TABLET BY MOUTH EVERY DAY AT DINNER FOR 30 DAYS 4 02/08/20 Discontinu ed(Therapy completed) cyanocobalamin (vitamin B-12) 1,000 mcg tabletIndicatio ns:Prevention of Vitamin B12 Deficiency Take 1 tablet (1,000 mcg total) by mouth daily 02/08/20 Discontinu ed(Therapy completed) multivitamin tabletIndicatio ns:Vitamin Deficiency Prevention Take 1 tablet by mouth 02/08/20 Discontinu ed(Therapy completed) ascorbic acid (VITAMIN C) 100 mg tablet Take 1 tablet (100 mg total) by mouth daily 02/08/20 Discontinu ed(Therapy completed) DULoxetine DR (CYMBALTA) 60 mg capsule Take 1 tablet by mouth daily 02/08/20 Discontinu ed(Therapy completed) predniSONE (DELTASONE) 1 mg tabletIndicatio ns:Rheumatoid arthritis involving multiple sites with positive rheumatoid factor (HCC) TAKE 1 TABLET BY MOUTH EVERY DAY 90 tablet 1 4 02/08/20 Discontinu ed(Reorder ) leflunomide (ARAVA) 20 mg [...] Department Care Team Description 02/08/2025 Orders Only [facility] Pulmonary [address] [facility] Medicine 8th [place] [address] Bartolome Olivares MD ILD (interstitial lung disease) (HCC) (Primary Dx) 02/07/2025 9:45 AM CDT Lab [facility] at [address] [address] Rheumatoid arthritis involving multiple sites with positive rheumatoid factor (HCC) 02/07/2025 9:20 AM CDT Office Visit [facility] Rheumatology [address] [place] [address] Medical [address] [place] [address] Evelina Rodriguez NP Rheumatoid arthritis involving multiple sites with positive rheumatoid factor (HCC) (Primary Dx); ILD (interstitial lung disease) (HCC); High risk medication use; FPC (current) use of systemic steroids 02/07/2025 Results Follow-Up [facility] Rheumatology [address] [place] [address] Medical Office [address] [place] [address] Evelina Rodriguez NP 01/31/2025 Telephone [facility] Rheumatology [address] [place] [address] JerPaddy bravo 01/07/2025 Telephone [facility] Rheumatology [address] [facility] Advanced Medicine 5th [place] [address] [place] [address] Noemí Nguyen RMA 12/01/2024 Orders Only [facility] Pulmonary [address] [facility] Advanced Medicine 8th [place] [address] [place] [address] Bartolome Olivares MD ILD (interstitial lung disease) (HCC) (Primary Dx) 12/01/2024 Telephone [facility] Pulmonary [address] [facility] [address] 8th [place] [address] [place] [address] Jenny Nicole RN from Last [...] on file Legal Sex Female 10:35 PM [employer] Gender Identity Female 11/29/2022 2:33 PM [employer] Sexual Orientation Straight 11/29/2022 2: 33 PM [employer] Occupation Industry Job Start Date Job End [...] 02/07/2025 9:12 AM CDT Plan of Treatment Health Maintenance [...] season) 2024 11/14/2021, 01/19/2021, 12/29/2020 Influenza Vaccine (Season Ended) 2025 11/14/19, 10/02/2020 Procedures Procedure Name Priority Date/Time Associated Diagnosis [...] was last reviewed 2021. Testing performed by: [facility], [address] [place] [address] Blood 02/07/2025 9:28 AM CDT 02/07/2025 9:56 AM CDT us Evelina Rodriguez NP LAB BLOOD ORDERABLES Fi nal Result [facility] [address] Department [place] [address] * Differential, auto (02/07/2025 9:28 AM CDT) Neutrophil abs 6.0 1.5 - 6.5 K/cumm Comment:Testing performed by : [facility] 2, [address] [place] [address] Imm gran abs 0.1 0.0 - 0.1 K/cumm [facility] Comment:Testing performed by : [place] [address], [address] [place] [address] Lymphocyte abs 1.8 0.8 - 3.3 K/cumm [facility] Comment:Testing performed by : [facility] 2, [address] [place] [address] Monocyte abs 0.7 0.2 - 0.8 K/cumm [facility] Comment:Testing performed by : [place] [address], [address] [place] [address] Eosinophil abs 0.2 0.0 - 0.5 K/cumm [facility] Comment:Testing performed by : [facility] [address], [address] [place] [address] Basophil abs 0.1 0.0 - 0.1 K/cumm [facility] Comment:Testing performed by : [place] [address], [address] [place] [address] Neutrophil pct 67.7 % [facility] Comment: Interpretive Data Percent cell count reference ranges are not reported, since discordance with absolute values may lead to misinterpretation of CBC data. Current Interpretive Data was last revised on 2018. Testing performed by: [facility] [address], [address] [place] [address] Imm gran pct 0.6 % [facility] Comment: Interpretive Data Percent cell count reference ranges are not reported, since discordance with absolute values may lead to misinterpretation of CBC data. Current Interpretive Data was last revised on 2018. Testing performed by: [facility], [facility], [address] [place] [address] Lymphocyte pct 20.8 % [facility] Comment: Interpretive Data Percent cell count reference ranges are not reported, since discordance with absolute values may lead to misinterpretation of CBC data. Current Interpretive Data was last revised on 2018. Testing performed by: [facility], [facility], [address] [place] [address] Monocyte pct 8.3 % [facility] Comment: Interpretive Data Percent cell count reference ranges are not reported, since discordance with absolute values may lead to misinterpretation of CBC data. Current Interpretive Data was last revised on 2018. Testing performed by: [facility], [facility], [address] [place] [address] Eosinophil pct 2.0 % [facility] Comment: Interpretive Data Percent cell count reference ranges are not reported, since discordance with absolute values may lead to misinterpretation of CBC data. Current Interpretive Data was last revised on 2018. Testing performed by: [facility], [facility], [address] [place] [address] Basophil pct 0.6 % [facility] Comment: Interpretive Data Percent cell count reference ranges are not reported, since discordance with absolute values may lead to misinterpretation of CBC data. Current Interpretive Data was last revised on 2018. Testing performed by: [facility], [facility], [address] [place] [address] Blood 02/07/2025 9:28 AM CDT 02/07/2025 9:49 AM CDT Evelina Rodriguez NP LAB BLOOD ORDERABLES Fi nal Result [facility] [address] [facility]. Department [place] [employer] [address] * (ABNORMAL) CBC with auto differential (02/07/2025 9:28 AM CDT) WBC 8.8 3.8 - 9.9 K/cumm Comment:Testing performed by : [place] [address] [place] [address] Hgb 9.8(L) 11.9 - 15.5 g/dL [facility] Comment:Testing performed by : [place] [address] [place] [address] Hct 31.5(L) 35.6 - 45.5 % [facility] Comment:Testing performed by : [place] [address] [place] [address] Plt 296 150 - 400 K/cumm [facility] Comment:Testing performed by : [place] [address] [place] [address] MPV 9.4 9.1 - 12.3 fL [facility] Comment:Testing performed by : [place] [address] [place] [address] RBC 3.65(L) 3.90 - 5.20 M/cumm [facility] Comment:Testing performed by : [place] [address] [place] [address] MCV 86.3 81.3 - 96.4 fL [facility] Comment:Testing performed by : [place] [address], [place] [address] MCH 26.8(L) 27.1 - 33.3 pg [facility] Comment:Testing performed by : [place] [address], [address] [place] [address] MCHC 31.1(L) 32.3 - 35.7 g/dL [facility] Comment:Testing performed by : [place] [address] [place] [address] RDW CV 18.2(H) 11.1 - 14.9 % [facility] Comment:Testing performed by : [facility], [facility] [address], [address] [place] [address] RDW SD 57.6(H) 35.7 - 48.1 fL [facility] Comment:Testing performed by : [facility], [facility] [address], [address] [place] [address] Blood 02/07/2025 9:28 AM CDT 02/07/2025 9:49 AM CDT us Evelina Rodriguez NP LAB BLOOD ORDERABLES Fi nal Result Performing Organization Address City/[facility] Co de Phone Number [facility] [address]. [facility] [employer] [address] * (ABNORMAL) Erythrocyte sedimentation rate (02/07/2025 9:28 AM CDT) Erythrocyte sedimentation rate 58(H) 1 - 30 mm/hr Comment:Testing performed by : [facility], [address] [place] [address] Blood 02/07/2025 9:28 AM CDT 02/07/2025 10:23 AM CDT us Evelina Rodriguez NP LAB BLOOD ORDERABLES nal Result Performing Organization Address City/[facility] Co de Phone Number [facility] [address]. [facility] [employer] [address] * (ABNORMAL) CRP (acute phase) (02/07/2025 9:28 AM CDT) CRP 48.5(H) <=10.0 mg/L Comment:Testing performed by : [facility], [address], [place] [address] Blood 02/07/2025 9:28 AM CDT 02/07/2025 9:56 AM CDT Evelina Rodriguez NP LAB BLOOD ORDERABLES Fi nal Result [facility] [address]. Department [place] [address] * (ABNORMAL) Comprehensive metabolic panel (02/07/2025 9:28 AM CDT) Sodium 138 135 - 145 mmol/L Comment:Testing performed by : [facility], [address], [place] [address] Potassium, pl 4.5 3.3 - 4.9 mmol/L [facility] Comment:Testing performed by : [facility], [address], [place] [address] Chloride 103 97 - 110 mmol/L [facility] Comment:Testing performed by : [facility], [address], [place] [address] CO2 25 22 - 32 mmol/L [facility] Comment:Testing performed by : [facility], [address], [place] [address] Anion gap 10 2 - 15 mmol/L [facility] Comment:Testing performed by : [facility], [address], [place] [address] BUN 13 6 - 25 mg/dL [facility] Comment:Testing performed by : [facility], [address], [place] [address] Creatinine 1.21(H) 0.60 - 1.10 mg/dL [facility] Comment:Testing performed by : [facility], [address], [place] [address] Glucose 100 70 - 199 mg/dL [facility] Comment: Interpretive Data Fasting glucose >/= [...] classification and Diagnosis of Diabetes Diabetes Care 202; 46: S19-S40. Current interpretive data was last revised 2022. Testing performed by: [facility], [address], [place] [address] Calcium 9.5 8.5 - 10.3 mg/dL [facility] Comment:Testing performed by : [facility], [address], [place] [address] Bilirubin, total 0.2 0.1 - 1.2 mg/dL [facility] Comment:Testing performed by : [facility], [address], [place] [address] Protein, pl 7.2 6.5 - 8.5 g/dL [facility] Comment:Testing performed by : [facility], [address], [place] [address] Albumin 3.5 3.5 - 5.0 g/dL [facility] Comment:Testing performed by : [facility], [address], [place] [address] Alk phos 126 40 - 130 Units/L [facility] Comment:Testing performed by : [facility], [address], [place] [address] ALT 8 7 - 45 Units/L [facility] Comment:Testing performed by : [facility], [address], [place] [address] AST 20 10 - 45 Units/L [facility] Comment:Testing performed by : [facility], [address], [place] [address] Blood 02/07/2025 9:28 AM CDT 02/07/2025 9:56 AM CDT us Evelina Rodriguez NP LAB BLOOD ORDERABLES Fi nal Result [facility] [address] Department [place] [address] * Dexa Axial Skeleton Bone Density 1 or 2 Site (01/31/2022 8:48 AM CDT) Anatomical Region Laterality Modality Body N/A Radiographic Paola ging Narrative 02/05/2022 12:34 PM CDT Patient Name: Helena Calvo Date of : 1955 Date of scan: 01/31/2022 Bone mineral density was performed on a HoloDirecta Plus Discovery Densitometer. Based on machine cross-calibration and [...] density scan were prepared by Ashley Lemus (R)([facility] who is accredited by the International Society of Clinical Densitometry. The overall patient assessment and scan interpretation were performed by Consuelo Jones M.D. who is certified by the International Society of Clinical Densitometry. [id number] Evelina Rodriguez NP IM DXA PROCEDURES Karen l Result from Last 3 Months or Most Recently Relevant to Health Maintenance Insurance [facility] [employer] MEDICARE GOLD A[employer] MEDICARE GOLD Care Teams Production Intern Relationship Specialty Start Date End Date Fidencio Obregon DO PCP - General Internal Medicine 05/22/22 Fidencio Obregon DO Surgeon Internal Medicine 03/04/22
--- OUTSIDE RECORDS SUMMARY | 2025-02-23 16:15 | XMS_ITS | Data Portability ---
Author Organization [facility] [place] , [facility] Address [address] [place] [address] Assessment No assessment recorded. Plan of Treatment Reminders Order Date Submit Date Provider Last Modified By Organization Details Last Modified Time Details Appointments None record ed. Lab None record ed. Referral None record ed. Procedures None record ed. Surgeries None record ed. Imaging None record ed. Medication Orders None record ed. Patient TargetsNo targets recorded. Patient Instructions Encounter Date Encounter Id Patient Instructions Last Modified By Organization Details Last Modified Time 12/11/2021 [id number] vaginal bleeding after menopause: care instructions [email or web address] Not available 12/11/2021 14:49:38 Reason for Referral None Reported. Results Created Date Observation Date Name Description Value Unit Range Abnormal Flag Note LastModifiedBy Organization Detail LastModifiedTime 01/09/20 22 01/20/2021 MRI, lumba r plexu s, w/o contr ast No observ ation record ed. [email or web address] [facility] [address], [place], [address], 01/17/2022 13:24:04 01/09/20 22 11/05/2021 imagi ng/di agnos tic resul t No observ ation record ed. [email or web address] [facility] [address], [place], [address], 01/08/2022 11:08:23 03/11/20 22 02/08/2022 imagi ng/di agnos tic resul t No observ ation record ed. [place] [id number], [place], [address], 03/12/2022 10:42:13 03/11/20 22 02/08/2022 imagi ng/di agnos tic resul t No observ ation record ed. [address], [place], [address], 03/12/2022 10:42:42 Result Notes None recorded. Procedures Surgical History Date Name Laterality Status Provider Name and Address Organization Details Recorded Time 05/01/20 20 Most Recent Mammogram completed [facility] 12/11/2021 14:24:04 06/24/20 19 Most Recent Bone Density completed [facility] 12/11/2021 14:24:04 04/10/20 16 Date of Last Pap Smear completed [facility] IV 12/11/2021 14:24:04 D & C completed [facility] IV 12/11/2021 14:24:05 C Section completed [facility] IV 12/11/2021 14:24:05 Breast Augmentation completed [facility] IV 12/11/2021 14:24:05 Gall bladder completed [facility] IV 12/11/2021 14:24:05 Appendectomy completed [facility] IV 12/11/2021 14:24:05 Colonoscopy completed [facility] IV 12/11/2021 14:24:05 Sterilization completed [facility] 12/11/2021 14:24:05 Imaging Results Imaging Date Name Status LastModified by Organiz ation Details LastModified Time 01/20/2021 MRI, lumbar plexus, w/o contrast completed [email or web address] [facility] [address], [place], [address], 01/17/2022 13:24:04 11/05/2021 imaging/diagn ostic result completed [email or web address] [facility] [address], [place], [address], 01/08/2022 11:08:23 02/08/2022 imaging/diagn ostic result completed [place] [id number] [facility] [address], [place], [address], 03/12/2022 10:42:13 02/08/2022 imaging/diagn ostic result completed [address] [facility] [address], [place], [address], 03/12/2022 10:42:42 Procedure Notes None recorded. Medical Equipment None Reported. Allergies Allergen ID Allergen Name Allergen Category Reaction Reaction Severity Criticality Documentation Date Start Date Code Code System Note Provider Name and Address Organization Details Recorded Time 115486 cat dander environme nt Not available Not available Not available 12/11/2021 53406 UNK Not Available Not Available Not Available [id number] Canis lupus familiari s extract environme nt Not available Not available Not available 12/11/2021 91423 4 RxNorm Not Available Not Available Not Available Medications Name Sig Start Date Stop Date Status Note LastModified by Organization Details LastModified Time buspirone 5 mg tablet TAKE 1 TABLET TWICE A DAY BY ORAL ROUTE FOR 30 DAYS. 12/11 completed Not Available Not Available Not Available azithromyci n 250 mg tablet TAKE 2 TABLETS BY MOUTH TODAY, THEN TAKE 1 TABLET DAILY FOR 4 DAYS 12/11 completed Not Available Not Available Not Available famotidine 40 mg tablet TAKE 1 TABLET BY MOUTH TWICE A DAY active Not Available Not Available No t Available prednisone 5 mg tablet TAKE 1 TABLET BY MOUTH EVERY DAY 12/11 completed Not Available Not Available Not Available levothyroxi ne 100 mcg tablet TAKE 1 TABLET BY MOUTH EVERY DAY active Not Available Not Available No t Available methotrexat e sodium 2.5 mg tablet TAKE 4 TABLETS BY MOUTH ONE DAY A WEEK active Not Available Not Available No t Available prednisone 1 mg tablet TAKE 4 TABLETS BY MOUTH DAILY 12/11 completed Not Available Not Available Not Available benzonatate 100 mg capsule TAKE 1 CAPSULE BY MOUTH EVERY 8 HOURS NEEDED active Not Available Not Available No t Available pantoprazol e 40 mg tablet,dali yed release TAKE 1 TABLET BY MOUTH TWICE A DAY active Not Available Not Available No t Available folic acid 1 mg tablet TAKE 1 TABLET BY MOUTH EVERY DAY active Not Available Not Available No t Available methylpredn isolone 4 mg tablets in a dose pack TAKE 6 TABLETS ON DAY 1 DIRECTED ON PACKAGE AND DECREASE BY 1 TAB EACH DAY FOR A TOTAL OF 6 DAYS 12/11 completed Not Available Not Available Not Available progesteron e micronized 100 mg capsule TAKE 1 CAPSULE BY MOUTH DAILY active Not Available Not Available No t Available atomoxetine 25 mg capsule TAKE 1 CAPSULE BY MOUTH EVERY DAY FOR 1 WEEK. 2 CAPS EVERY MORNING FOR 1 WEEK THEN START 60 MG CAP 12/11 completed Not Available Not Available Not Available atomoxetine 60 mg capsule TAKE 1 CAPSULE BY MOUTH EVERY EVENING active Not Available Not Available No t Available bupropion HCl XL 300 mg 24 hr tablet, extended release TAKE 1 TABLET BY MOUTH EVERY DAY active Not Available Not Available No t Available duloxetine 30 mg capsule,del ayed release TAKE 1 CAPSULE BY MOUTH EVERY DAY TOTAL DOSE IS 90 MG 12/11 completed Not Available Not Available Not Available duloxetine 60 mg capsule,del ayed release TAKE 1 CAPSULE BY MOUTH EVERY DAY active Not Available Not Available No t Available Vitals Date Recorded Body height Body mass index (BMI) Body weight Body temperature Systolic blood pressure Diastolic blood pressure Provider Name and Address Organization Details Last Updated DateTime 2 160.02 cm 19 kg/m2 08079.8 2 g 98 [degF] 110 mm[Hg] 62 mm[Hg] Carin Werner [employer] [facility] 14:28:41 Social History Question Answer Notes LastModified by Organizat ion Details LastModified Time Tobacco Smoking Status Never Smoker Carin Werner null, [employer] [facility] 12/11/2021 14:24:05 What Is Your Level Of Alcohol Consumption? Occasional [email or web address] Information not available 12/11/2021 How Many Years Have You Consumed Alcohol? 50 [email or web address] Information not available 12/11/2021 What Type Of Diet Are You Following? REGULAR [email or web address] Information not available 12/11/2021 Which Illicit Or Recreational Drugs Have You Used? Marijuana [email or web address] Information not available 12/11/2021 Do You Or Have You Ever Used E-cigarettes Or Vape? Never Used Electronic Cigarettes [email or web address] Information not available 12/11/2021 What Is Your Relationship Status? [email or web address] Information not available 12/11/2021 Are You Sexually Active? No [email or web address] Information not available 12/11/2021 Sex: Unknown Functional Status Question Answer Note LastModified by Organization D etails LastModified Time What is your exercise level? None [email or web address] Information not available 12/11/2021 Mental Status None recorded. Family History Relationship Description Onset Age of this Age Resolved Age Notes LastModified by Organization Details LastModified Time Maternal Grandmother Cerebrovascu lar accident Not available 14:24:04 Mother Cerebrovascu lar accident [email or web address] Not available 14:24:04 Mother Hypercholest erolemia [email or web address] Not available 12/11 14:24:04 Father Hypercholest erolemia [email or web address] Not available 12/11 14:24:04 Father Cerebrovascu lar accident [email or web address] Not available 14:24:04 Unspecified Relation Gastric ulcer [email or web address] Not available 12/11 14:24:04 Brother Depressive disorder [email or web address] Not available 12/11 14:24:04 Brother Malignant tumor of colon [email or web address] Not available 12/11 14:24:04 Sister Depressive disorder [email or web address] Not available 12/11 14:24:04 Sister Irritable bowel syndrome [email or web address] Not available 12/11 14:24:04 Sister Hypercholest erolemia [email or web address] Not available 12/11 14:24:04 Sister Gastric ulcer [email or web address] Not available 12/11 14:24:04 Sister Osteoporosis [email or web address] Not kamila ilable 12/11/2021 14:24:04 Sister Ulcerative colitis [email or web address] Not available 12/11 14:24:04 Medical History Condition Response Anxiety Disorder Y Autoimmune disease Y Gallbladder disease Y Arthritis N Hyperthyroidism Y Depression Y Seasonal allergies Y Rubella Y Bipolar Disorder Y Ulcerative Colitis Y High Cholesterol Y GERD (reflux) Y Chicken Pox Y Osteoporosis Y Gynecological History Statement/Question Response If Post Menopausal, Age at Menopause 47 Flow Moderate Frequency of Cycle (Q days) 25 Date of LMP 10/01/2002 Most Recent Bone Density 06/24/2019 Date of Last Pap Smear 04/10/2016 Duration of Flow (days) 5 to 7 Most Recent Mammogram 05/01/2020 Current Control Method Sterilizati on Age at Menarche 12 Obstetrics History GPAL:G 1 P 1 0 0 1 Type Value Full Term 1 Living 1 Total 1 Past Encounters Encounter ID Performer Location Encounter Start Date Encounter Closed Date Diagnosis/Indication Diagnosis SNOMED-CT Code Diagnosis ICD10 Code Diagnosis Note [id number] Lalita Bhatia MD [facility] [address] [place] [address] 12/11/2021 14:03:07 12/17/2021 15:05:42 Postmenopausal bleeding 20494187 N95.0 Epic imaging reports reviewed (1 week prior to visit preformed) . Patient's endometria l stripe is 4.4 mm. Suspect that bleeding related to inconsiste nt use of combined HRT. Patient will resume her progestero ne as given. Precaution s discussed. Patient was instructed to follow up for recurring bleeding. Release of records signed today. Hormone re placement therapy [id number] Z79.890 Health Concerns Section Related Observation LastModified by Organization Detai ls LastModified Time None Recorded Concern Status LastModified by Organization Details LastModified Time None Recorded Advance Directives Directive None Recorded Payers Encounter Date Sequence Insurance Name Policy Number Policy Forte Covered Member ID Forte Member ID Guarantor Name 12/11/2021 1 [facility] (MEDICARE REPLACEMENT HMO) [id number] Helena Calvo [id number] Helena Calvo 12/11/2021 2 [place] Helena Calvo [id number] Helena Calvo Notes Date Note Type Note Provider Name and Address Organization Details Recorded Time 12/11/2021 text/html Post Menopausal BleedingReported bypatient.Quality:heav y Associated Symptoms:no pelvic pain; no abdominal pain; no fatigue; no dizziness; no iron/anemia supplements; no shortness of breath; no CP/palpitations; no bloating; no change in bowel function; no changes in urinary function; no vaginal discharge; no vaginal itching/irritationNote s:Patient is prescribed combined HRT. She didn't take her progesterone as instructed in October or November. Has experienced some light bleeding since. Helena here for post menopausal bleeding several times in the last year , last time 11/14/2021 last 2-5 days . She has had a U/S and MRI. Lalita Bhatia MD [facility], [place], [address], [facility] 12/15/2021 13:37:13 OBGyn Episode No OBEpisode recorded.
--- OUTSIDE RECORDS SUMMARY | 2025-02-23 16:16 | XMS_ITS | Clinical Summary ---
Author Organization [facility] Address [address] [place] [id number] Care Team Providers Care Named Account Executive Name Role Phone Unavailable Primary Care Provider [...] 2004 Dexa Scan (General) 2019 Pneumococcal Vaccine: 50+ Ye ars (1 of 1 - PCV) 2019 COVID-19 Vaccine ( - 2023-2 5 season) 2024 RSV Immunization or 60+ Years (1 [...]
--- OUTSIDE RECORDS SUMMARY | 2025-02-23 16:16 | XMS_ITS | Clinical Summary ---
Author Organization [facility] Address [address] [place] [address] Phone Care Team Providers Care Machine Sweeper Brush Maker Name Role Phone StephaniesladeFidencio prince Primary Care [...] Encounters Date Type Department Care Team Description 01/26/2025 External Device Data [facility] ABSTRACTION Provider, Abstract 01/18/2025 External Device Data [facility] ABSTRACTION Provider, Abstract 01/18/2025 External Device Data [facility] ABSTRACTION Provider, Abstract 01/15/2025 External Device Data [facility] ABSTRACTION Provider, Abstract 01/14/2025 External Device Data [facility] ABSTRACTION Provider, [...] INFLUENZA VACCINE (#1) 2024 08/22/2023 COVID-19 Vaccine (3 - 2023- season) 07/11/202410/2021, 12/29/2020 COLORECTAL SCREENING 06/02/2030 06/02/2020 Colorectal Cancer Screening 06/02/2030 OSTEOPOROSIS SCREENING Completed 01/31/2022, [place] [facility] [place]: [place] [id number] Care Teams Machine Sweeper Brush Maker Relationship Specialty Start Date End Date Fidencio Obregon DO [address] [address] PCP - General Internal Medicine 06/26/23
== END 2025-02-23 15:01 | disposition home or self-care (01) ==
LOC: ANHGOSHLAB 15:02
PROVIDERS: PCP Internal Medicine; Visit Provider Nurse Practitioner
DX: E03.9 Hypothyroidism, unspecified (principal)
CPT/HCPCS: 36415; 84443

== ENCOUNTER 2025-05-27 09:00 | Outpatient (RCR) | payer MEDICARE, SELFPAY ==
--- NOTE | 2025-03-18 17:27 | PTOPEVAL1 ---
Assessment and note entered by Imani Hammond, PT Evaluation Information Assessment Status Evaluation Diagnosis M54.12, M54.16, M54.6, M54.50, R26.81 ICD-10 Condition Codes (PT) Cervicalgia M54.2,Pain in Thoracic Spine M54.6, Pain in low back M54.50,Radiculopathy, cervical M54.13,Radiculopathy, thoracolumbar region M54.15, Radiculopathy, lumbar region M54.16,Abnormalities of gait and mobility R26.9,Weakness R53.1 Onset November 2024 Subjective Information Pt reports has been limited with physical activity due to the pain, usually sleeping laying down in bed, bed is adjustable 3-5/10 in general. Worst when first getting up in the morning, better as she moves around. uses a 2ww for stability at home only, she doesn't take it outside. Reported Pain Level Pain Score 3,4: Self Report Assessment PT Clinical Summary Pt presents to therapy with c/o increasing back pain, and a rheumatoid arthritis flare up, demos weakness, ROM deficits, postural dysfunction, balance and gait impairments which limits her ability to perform indep functional mobility at home and in the community. She will benefit from skilled PT intervention to improve functional strength, mobility, endurance, safety and to reduce risk for falls. Plan of Care Interventions Check Out for Orthotic/Prosthetic,Electrical Stimulation,Gait Training,Hot Pack/Cold Pack, Manual Therapy,Patient/Caregiver Education, Therapeutic Activities,Therapeutic Exercise, Ultrasound PT Services Indicated Yes Treatment Frequency and 2x/wk x 10 visits Duration These treatments will address the objective and functional deficits as defined above. The patient will be advanced safely and appropriately in order for the patient to progress towards his/her prior level of function. Additional exercises will be introduced and as well as a comprehensive home exercise program upon discharge, if needed, ?to ensure carryover of functional gains achieved in the clinic. This treatment plan has been reviewed and agreement upon by the patient.
--- NOTE | 2025-03-18 17:27 | OPREHPOC ---
Outpatient Therapy Plan of Care This is a Multidisciplinary Plan of Care that may contain components documented by all disciplines (PT, OT, and ST.) PT Problem 1 PT Problem #1 Knowledge Deficit PT Goal 1 Goal / Goal Update Pt will perform HEPs to improve general strength and flexibility. Target Visit 8 PT Problem 2 PT Problem #2 Impaired Strength PT Goal 1 Goal / Goal Update Pt will demo 5/5 strength to BUE, BLE; 5xSTS score of 15 seconds or less without BUE support Target Visit 10 PT Problem 3 PT Problem #3 Impaired Range of Motion PT Goal 1 Goal / Goal Update Pt will demo WNL cervical and lumbar motions without discomfort. Target Visit 10 PT Problem 4 PT Problem #4 Impaired Functional Mobility PT Goal 1 Goal / Goal Update Pt will improve standing tolerance to > 10 min Target Visit 10
--- NOTE | 2025-05-27 09:42 | PTOPDC ---
Assessment and note entered by Darryl Zarate, PT Evaluation Information Assessment Status Discharge Diagnosis M54.12, M54.16, M54.6, M54.50, R26.81 ICD-10 Condition Codes (PT) Cervicalgia M54.2,Pain in Thoracic Spine M54.6, Pain in low back M54.50,Radiculopathy, cervical M54.13,Radiculopathy, thoracolumbar region M54.15, Radiculopathy, lumbar region M54.16,Abnormalities of gait and mobility R26.9,Weakness R53.1 Onset November 2024 Subjective Information Pt notes she feels a little better and is able to stand up for longer with having to rest and is able to get in and out of bathtub easier. Pt notes continued difficulty with forward bending and generalized pain due to RA flare ups. Pt states she is pleased with her progress and plans on continuing exercises from her handouts. Reported Pain Level Pain Score 3: Self Report Pain Score 2: Self Report Assessment PT Clinical Summary Patient's condition has improved overall as evidenced by advancements in symptoms, mobility, strength, and overall functional use of the extremity. 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 Patient has met therapy goals and is pleased with progress made towards the remaining goals. Patient to discharge from physical therapy this date and continue with updated home exercise program as instructed. Patient to contact physical therapist or primary care provider if questions or concerns arise. Plan of Care PT Services Indicated No
== END 2025-06-01 14:01 | disposition home or self-care (01) ==
LOC: ANHGOSHPT 09:00
PROVIDERS: PCP Internal Medicine; Visit Provider Clinical Nurse Specialist
DX: M54.12 Radiculopathy, cervical region (principal); M54.16 Radiculopathy, lumbar region; M54.6 Pain in thoracic spine; M54.50 Low back pain, unspecified; R26.81 Unsteadiness on feet
CPT/HCPCS: 97110; 97112; 97161; 97530

== ENCOUNTER 2025-06-06 10:23 | Outpatient (CLI) | payer MEDICARE, SELFPAY ==
--- OUTSIDE RECORDS SUMMARY | 2025-06-06 10:50 | XMS_ITS | Referral Summary ---
Author Organization [facility] Address [address] [place] [address] Care Team Providers Care Security Systems Integrator Name Role Phone Fidencio Obregon DO Unavailable [phone] Fidencio Obregon DO Primary Care Provider [phone] Encounters Date Type Department Care Team Description 03/23/2025 Documentation [facility] Pulmonary [address] [place] [address] Office Building [address] [place] [phone] Bartolome Olivares MD Test Results 03/17/2025 Orders Only [facility] Rheumatology [address] [place] [address] Office Building [address] [place] [address] Evelina Rodriguez NP 03/12/2025 4:02 PM CDT - 03/12/2025 11:59 PM CDT Hospital Encounter [facility] [address] [place] [address] ILD (interstitial lung disease) (HCC) Discharge Disposition: Discharge to home or self care 03/08/2025 Orders Only [facility] Rheumatology [address] [place] [address] Office Building [address] [place] [id number] Noemí Nguyen RMA 03/08/2025 Results Follow-Up [facility] Rheumatology [address] [place] [address] Office Building [address] [place] [id number] Evelina Rodriguez NP Erythrocyte sedimentation rate, CRP (acute phase), Comprehensive metabolic panel, Additional followed-up results: 3 03/07/2025 4:30 PM CDT Lab [facility] at [address] [address] High risk medication use 03/07/2025 3:30 PM CDT Office Visit [facility] Rheumatology [address] [facility] Medical Office Building [address] [place] [phone] Evelina Rodriguez NP Rheumatoid arthritis involving multiple sites with positive rheumatoid factor (HCC) (Primary Dx); High risk medication use from Last 3 Months Allergies Active Allergy Reactions Criticality Noted Date Comments Meloxicam Vomiting Low 03/06/[address] (PROTONIX) 40 mg EC tablet 1 Active levothyroxine (SYNTHROID) 75 mcg tablet Take 1 tablet (75 mcg total) by mouth daily 2 Active predniSONE (DELTASONE) 5 mg tabletIndicati ons:Rheumatoid arthritis involving multiple sites with positive rheumatoid factor (HCC) Take 1 tablet (5 mg) by mouth daily 90 tablet 1 5 Active leflunomide (ARAVA) 10 mg tabletIndicati ons:Rheumatoid Arthritis Take 1 tablet (10 mg total) by mouth daily 90 tablet 5 07/24/20 25 Active celecoxib (CeleBREX) 100 mg capsule TAKE 1 CAPSULE BY MOUTH EVERY DAY 90 capsule 5 Active celecoxib (CeleBREX) 100 mg capsule Take 1 capsule (100 mg total) by mouth daily 30 capsule 3 5 05/13/20 25 Discontinued Active Problems Problem Noted Date Diagnosed Date [...] Frequency of Alcohol Consumption Not on file 03/07/2025 Q2: How many drinks containi ng alcohol do you have on a typical day when you are drinking? Patient does not drink Frequency of Binge Drinking Not on file 02/09 Comments Unknown Sex and Gender Information Value Date Recorded Sex Assigned at Not on file Legal Sex Female 10:35 PM [employer]ER Gender Identity Female 11/29/2022 2:33 PM [employer]ACER Sexual Orientation Straight 11/29/2022 2: 33 PM [employer]ACER Occupation Industry Job Start Date Job End Date Retired Not on file Not on file Not on file Last Filed Vital Signs Vital Sign Reading Time Taken Comments Blood Pressure 106/68 03/07/2025 3:18 PM CDT Pulse 78 03/07/2025 3:18 PM CDT Temperature 36.8 C (98.3 F) 03/07/2025 3:18 PM CDT Respiratory Rate 18 03/01/2025 3:49 PM CDT Oxygen Saturation 100% 03/07/2025 3:18 PM CDT Inhaled Oxygen Concentration - - Weight 41.9 kg (92 lb 4.8 oz) 03/07/2025 3:18 PM CDT Height 152.4 cm (5') 03/07/2025 3:18 PM CDT Body Mass Index 18.03 03/07/2025 3:18 PM CDT Plan of Treatment Not on file Procedures Procedure Name Priority Date/Time Associated Diagnosis Comments CT CHEST HIGH RESOLUTION WO CONTRAST Schedule Routine, Read Routine (OP Routine) 03/12/2025 4:14 PM CDT ILD (interstitial lung disease) (HCC) EGFR Routine 03/07/2025 4:18 PM CDT High risk medication use DIFFERENTIAL AUTO Routine 03/07/2025 4:1 8 PM CDT High risk medication use CBC WITH AUTO DIFFERENTIAL Routine 03/07/2025 4:18 PM CDT High risk medication use COMPREHENSIVE METABOLIC PANEL Routine 03/07/2025 4:18 PM CDT High risk medication use CRP (ACUTE PHASE) Routine 03/07/2025 4:1 8 PM CDT High risk medication use ERYTHROCYTE SEDIMENTATION RATE Routine 03/07/2025 4:18 PM CDT High risk medication use DEXA AXIAL SKELETON BONE DENSITY 1 OR MORE SITES Schedule Routine, Read Routine (OP Routine) 01/31/2022 8:48 AM CDT Age-related osteoporosis without current pathological fracture from Last 3 Months or Most Recently Relevant to Health Maintenance Results * CT Chest High Resolution WO Contrast (03/12/2025 4:14 PM CDT) Anatomical Region Laterality Modality Chest N/A Computed Tomogra phy 03/13/2025 10:4 1 PM CDT Impressions 03/13/2025 10:41 PM CDT 1. Stable rheumatoid arthritis associated lung disease in a definite usual interstitial pneumonia pattern. Electronically signed by: John Paul Zee M.D. Narrative 03/13/2025 10:41 PM CDT Examination: Computed tomography of the chest without intravenous contrast DATE: 03/12/2025. HISTORY: Interstitial lung disease. TECHNIQUE: Computed tomography of the chest was obtained without intravenous contrast according to the high-resolution CT protocol. FINDINGS: Comparison is made to 10/08/2024. Again seen is peripheral and mid to lower lung predominant fibrosis with septal thickening, traction bronchiectasis, honeycombing. There is no change in the extent of the disease. No new suspicious pulmonary nodules or masses. Expiratory images are normal. No supraclavicular or axillary lymphadenopathy. No mediastinal or hilar lymphadenopathy. Heart size normal, no pericardial effusion. There are bilateral breast implants. Upper abdomen is normal. Bone windows demonstrate no lytic or blastic lesions. Procedure Note John Paul Zee MD - 03/13/2025 Examination: Computed tomography of the chest without intravenous contrast DATE: 03/12/2025. HISTORY: Interstitial lung disease. TECHNIQUE: Computed tomography of the chest was obtained without intravenous contrast according to the high-resolution CT protocol. FINDINGS: Comparison is made to 10/08/2024. Again seen is peripheral and mid to lower lung predominant fibrosis with septal thickening, traction bronchiectasis, honeycombing. There is no change in the extent of the disease. No new suspicious pulmonary nodules or masses. Expiratory images are normal. No supraclavicular or axillary lymphadenopathy. No mediastinal or hilar lymphadenopathy. Heart size normal, no pericardial effusion. There are bilateral breast implants. Upper abdomen is normal. Bone windows demonstrate no lytic or blastic lesions. IMPRESSION: 1. Stable rheumatoid arthritis associated lung disease in a definite usual interstitial pneumonia pattern. Electronically signed by: John Paul Zee M.D. Bartolome Olivares MD [facility] [place] Final Result * (ABNORMAL) eGFR (03/07/2025 4:18 PM CDT) eGFR 52(L) >=60 mL/min/1. 73 m2 Comment: Interpretive Data [...] was last reviewed 2021. Testing performed by: [facility], [address] [place] [address] Blood 03/07/2025 4:18 PM CDT 03/07/2025 5:05 PM CDT Evelina Rodriguez NP LAB BLOOD ORDERABLES nal Result [facility] [address] Department of Laboratories [place], [place] [id number] * (ABNORMAL) Differential, auto (03/07/2025 4:18 PM CDT) Neutrophil abs 6.70(H) 1.50 - 6.50 K/cumm Comment:Testing performed by : [facility], M[facility] [address], [address] [place] [address] Imm gran abs 0.06 0.00 - 0.10 K/cumm MINOR KLEIN Comment:Testing performed by : [facility], M[facility] 2, [address] [place] [address] Lymphocyte abs 1.92 0.80 - 3.30 K/cumm C[facility]ER [facility] Comment:Testing performed by : [facility], [facility], [address], [place] [address] Monocyte abs 0.36 0.20 - 0.80 K/cumm C[facility]ER [facility] Comment:Testing performed by : [facility], [facility], [address] [place] [address] Eosinophil abs 0.06 0.00 - 0.50 K/cumm CERNER [facility] Comment:Testing performed by : [facility], [facility], [address] [place] [address] Basophil abs 0.03 0.00 - 0.10 K/cumm CERNER [facility] Comment:Testing performed by : [facility], [facility], [address], [place] [address] Neutrophil pct 73.4 % CERNER [facility] Comment: Interpretive Data Percent cell count reference ranges are not reported, since discordance with absolute values may lead to misinterpretation of CBC data. Current Interpretive Data was last revised on 2018. Testing performed by: [facility], [facility], [address] [place] [address] Imm gran pct 0.7 % CERNER [facility] Comment: Interpretive Data Percent cell count reference ranges are not reported, since discordance with absolute values may lead to misinterpretation of CBC data. Current Interpretive Data was last revised on 2018. Testing performed by: [facility], [facility], [address] [place] [address] Lymphocyte pct 21.0 % CERNER [facility] Comment: Interpretive Data Percent cell count reference ranges are not reported, since discordance with absolute values may lead to misinterpretation of CBC data. Current Interpretive Data was last revised on 2018. Testing performed by: [facility], [facility], [address] [place] [address] Monocyte pct 3.9 % CERNER [facility] Comment: Interpretive Data Percent cell count reference ranges are not reported, since discordance with absolute values may lead to misinterpretation of CBC data. Current Interpretive Data was last revised on 2018. Testing performed by: [facility], [facility], [address] [place] [address] Eosinophil pct 0.7 % MINOR KLEIN Comment: Interpretive Data Percent cell count reference ranges are not reported, since discordance with absolute values may lead to misinterpretation of CBC data. Current Interpretive Data was last revised on 2018. Testing performed by: [place] [address], [address] [place] [address] Basophil pct 0.3 % IMNOR KLEIN Comment: Interpretive Data Percent cell count reference ranges are not reported, since discordance with absolute values may lead to misinterpretation of CBC data. Current Interpretive Data was last revised on 2018. Testing performed by: [address] [place] [address] Blood 03/07/2025 4:18 PM CDT 03/07/2025 4:19 PM CDT us Evelina Rodriguez NP LAB BLOOD ORDERABLES nal Result [facility] [address] [facility] Department [place] [address] * (ABNORMAL) CBC with auto differential (03/07/2025 4:18 PM CDT) WBC 9.13 3.80 - 9.90 K/cumm Comment:Testing performed by : [facility] 2, [address] [place] [address] Hgb 10.5(L) 11.9 - 15.5 g/dL MINOR KLEIN Comment:Testing performed by : [facility] 2, [address] [place] [address] Hct 33.7(L) 35.6 - 45.5 % MINOR LKEIN Comment:Testing performed by : [facility] 2, [address] [place] [address] Plt 248 150 - 400 K/cumm CERNER [facility]JWCH Comment:Testing performed by : [facility], [facility], [address] [place] [address] MPV 10.1 9.1 - 12.3 fL C[facility]ER [facility] Comment:Testing performed by : [facility] 2, [address] [place] [address] RBC 3.97 3.90 - 5.20 M/cumm CERNER [facility] Comment:Testing performed by : [place] [address], [address] [place] [address] MCV 84.9 81.3 - 96.4 fL CERNER [facility] Comment:Testing performed by : [facility] 2, [address] [place] [address] MCH 26.4(L) 27.1 - 33.3 pg CERNER BJWCH Comment:Testing performed by : [facility], [facility], [address] [place] [address] MCHC 31.2(L) 32.3 - 35.7 g/dL CERNER [facility]WCH Comment:Testing performed by : [place] [address], [address] [place] [address] RDW CV 18.4(H) 11.1 - 14.9 % CERNER [facility]CH Comment:Testing performed by : [place] [address], [address] [place] [address] RDW SD 57.5(H) 35.7 - 48.1 fL CERNER [facility] Comment:Testing performed by : [place] [address], [address] [place] [address] ANC Prelim 6.70(H) 1.50 - 6.50 K/cumm CERNER [facility] Comment: Interpretive Data The rapid ANC is a preliminary automated count and may vary from the final ANC (Neut Abs) reported in the WBC differential that follows. Current interpretive data was last revised 2025. Testing performed by: [facility], M[facility] [address], [address], [place] [address] Blood 03/07/2025 4:18 PM CDT 03/07/2025 4:19 PM CDT Evelina Rodriguez NP LAB BLOOD ORDERABLES Fi nal Result [facility] [address] [employer]. [facility] [place] [address] * (ABNORMAL) Erythrocyte sedimentation rate (03/07/2025 4:18 PM CDT) Erythrocyte sedimentation rate 45(H) 1 - 30 mm/hr Comment:Testing performed by : [facility], [id number] [place] [address], [place] [address] Blood 03/07/2025 4:18 PM CDT 03/07/2025 5:05 PM CDT Evelina Rodriguez CORN CROP SUPERVISOR LAB BLOOD ORDERABLES Fi nal Result Performing Organization Address [facility]/ZIP Co de Phone Number [facility] [address] [employer]. [facility] [place] [address] * (ABNORMAL) CRP (acute phase) (03/07/2025 4:18 PM CDT) CRP 22.1(H) <=10.0 mg/L Comment:Testing performed by : [facility], [address] [facility], [place] [address] Blood 03/07/2025 4:18 PM CDT 03/07/2025 5:05 PM CDT us Evelina Rodriguez CORN CROP SUPERVISOR LAB BLOOD ORDERABLES Fi nal Result [facility] [address] [place] [place] [address] * (ABNORMAL) Comprehensive metabolic panel (03/07/2025 4:18 PM CDT) Sodium 139 135 - 145 mmol/L Comment:Testing performed by : [facility], [address], [place] [address] Potassium, pl 4.7 3.3 - 4.9 mmol/L CERNER BJWCH Comment:Testing performed by : [facility], [address], [place] [address] Chloride 102 97 - 110 mmol/L CERNER BJWCH Comment:Testing performed by : [facility], [address], [place] [address] CO2 25 22 - 32 mmol/L CERNER BJWCH Comment:Testing performed by : [facility], [address], [place] [address] Anion gap 13 2 - 15 mmol/L CERNER BJWCH Comment:Testing performed by : [facility], [address], [place] [address] BUN 21 6 - 25 mg/dL CERNER BJWCH Comment:Testing performed by : [facility], [address], [place] [address] Creatinine 1.13(H) 0.60 - 1.10 mg/dL CERNER BJWCH Comment:Testing performed by : [facility], [address], [place] [address] Glucose 105 70 - 199 mg/dL CERNER BJWCH Comment: [...] was last revised 2022. Testing performed by: [facility], [address], [place] [address] Calcium 9.5 8.5 - 10.3 mg/dL CERNER BJWCH Comment:Testing performed by : [facility], [address], [place] [address] Bilirubin, total <0.1 0.1 - 1.2 mg/dL CERNER BJWCH Comment:Testing performed by : [facility], [address], [place] [address] Protein, pl 7.5 6.5 - 8.5 g/dL CERNER BJWCH Comment:Testing performed by : [facility], [address], [place] [address] Albumin 3.7 3.5 - 5.0 g/dL CERNER BJWCH Comment:Testing performed by : [facility], [address], [place] [address] Alk phos 119 40 - 130 Units/L CERNER BJWCH Comment:Testing performed by : [facility], [address], [place] [address] ALT 15 7 - 45 Units/L CERNER BJWCH Comment:Testing performed by : [facility], [address], [place] [address] AST 23 10 - 45 Units/L CERNER BJWCH Comment:Testing performed by : [facility], [address], [place] [address] Blood 03/07/2025 4:18 PM CDT 03/07/2025 5:05 PM CDT us Evelina Rodriguez NP LAB BLOOD ORDERABLES Fi nal Result [facility] [address] Department [place] [address] * Dexa Axial Skeleton Bone Density 1 or 2 Site (01/31/2022 8:48 AM CDT) Anatomical Region Laterality Modality Body N/A Radiographic Paola ging Narrative 02/05/2022 12:34 PM CDT Patient Name: Helena Calvo Date of : 1955 Date of scan: 01/31/2022 Bone mineral density was performed on a [employer] Discovery Densitometer. Based on machine cross-calibration and [...] by the International Society of Clinical Densitometry. [id number] Evelina Rodriguez NP IMG DXA PROCEDURES Karen l Result from Last 3 Months or Most Recently Relevant to Health Maintenance Insurance [facility] AETNA MEDICARE GOLD AETNA MEDICARE GOLD Care Teams Security Systems Integrator Relationship Specialty Start Date End Date Fidencio Obregon DO PCP - General Internal Medicine 05/22/22 Fidencio Obregon DO Surgeon Internal Medicine 03/04/22
--- OUTSIDE RECORDS SUMMARY | 2025-06-06 10:50 | XMS_ITS | Clinical Summary ---
Author Organization [facility] Address [address] [place] [address] Care Team Providers Care Chief Service Dispatcher Name Role Phone Fidencio Obregon DO Unavailable [phone] Fidencio Obregon DO Primary Care Provider [phone] Allergies Active Allergy Reactions Criticality Noted Date [...] Type Department Care Team Description 03/23/2025 Documentation [facility] [address] [place] [address] [address] [place] [address] Bartolome Olivares MD Test Results 03/17/2025 Orders Only [facility] [address] [place] [address] Office Building [address] [place] [address] Evelina Rodriguez NP 03/12/2025 4:02 PM CDT - 03/12/2025 11:59 PM CDT Hospital Encounter [facility] [address] [place] [address] ILD (interstitial lung disease) (HCC) Discharge Disposition: Discharge to home or self care 03/08/2025 Orders Only [facility] [address] [facility] Medical Office Building [address] [place] [address] Noemí Nguyen RMA 03/08/2025 Results Follow-Up [facility] [address] [facility] Medical Office Building [address] [place] [address] Evelina Rodriguez NP Erythrocyte sedimentation rate, CRP (acute phase), Comprehensive metabolic panel, Additional followed-up results: 3 03/07/2025 4:30 PM CDT Lab [facility] at [address] [place] [address] High risk medication use 03/07/2025 3:30 PM CDT Office Visit [facility] [address] [facility] Medical Office Building [address] [place] [address] Evelina Rodriguez NP Rheumatoid arthritis involving multiple sites with positive rheumatoid factor (HCC) (Primary Dx); High risk medication use from Last 3 Months Immunizations Immunization Administration [...] on file Legal Sex Female 10:35 PM SACK MAKER Gender Identity Female 11/29/2022 2:33 PM SACK MAKER Sexual Orientation Straight 11/29/2022 2: 33 PM SACK MAKER Occupation Industry Job Start Date Job End [...] 03/07/2025 3:18 PM CDT Plan of Treatment Health Maintenance [...] Scan 02/01/2024 01/31/2022, 01/31/2022 Covid-19 Vaccine ( - season) 2024 11/14/2021, 01/19/2021, 12/29/2020 Influenza Vaccine (#1) 2025 11/14/2021, 2019 Procedures Procedure Name Priority Date/Time [...] John Paul Zee M.D. Bartolome Olivares MD IMG CT PROCEDURES Final Result * (ABNORMAL) eGFR [...] of Race in Diagnosing Kidney Disease, JASN 202). The CKD-EPI equation should not be used for patients with unstable renal function and has not been validated in children and those over 70. Current interpretive data was last reviewed 2021. Testing performed by: [facility], [address] [place] [address] Blood 03/07/2025 4:18 PM CDT 03/07/2025 5:05 PM CDT Evelina Rodriguez DIAGRAMMER AND SEAMER LAB BLOOD ORDERABLES Fi nal Result [facility] [address] [facility] Department [place] [address] * (ABNORMAL) Differential, auto (03/07/2025 4:18 PM CDT) Neutrophil abs 6.70(H) 1.50 - 6.50 K/cumm Comment:Testing performed by : [facility] [address] [place] [address] Imm gran abs 0.06 0.00 - 0.10 K/cumm [facility] Comment:Testing performed by : [place] [address], [address] [place] [address] Lymphocyte abs 1.92 0.80 - 3.30 K/cumm [facility] Comment:Testing performed by : [place] [address], [address] [place] [address] Monocyte abs 0.36 0.20 - 0.80 K/cumm [facility]ER [facility] Comment:Testing performed by : [place] [address], [address] [place] [address] Eosinophil abs 0.06 0.00 - 0.50 K/cumm CERNER [facility] Comment:Testing performed by : [facility] 2, [address] [place] [address] Basophil abs 0.03 0.00 - 0.10 K/cumm CERNER [facility] Comment:Testing performed by : [facility] 2, [address] [place] [address] Neutrophil pct 73.4 % [facility]ER [facility] Comment: Interpretive Data Percent cell count reference ranges are not reported, since discordance with absolute values may lead to misinterpretation of CBC data. Current Interpretive Data was last revised on 2018. Testing performed by: [facility], [facility], [address] [place] [address] Imm gran pct 0.7 % C[facility]ER [facility] Comment: Interpretive Data Percent cell count reference ranges are not reported, since discordance with absolute values may lead to misinterpretation of CBC data. Current Interpretive Data was last revised on 2018. Testing performed by: [facility], [facility], [address] [place] [address] Lymphocyte pct 21.0 % [facility] Comment: Interpretive Data Percent cell count reference ranges are not reported, since discordance with absolute values may lead to misinterpretation of CBC data. Current Interpretive Data was last revised on 2018. Testing performed by: [facility], [facility], [address] [place] [address] Monocyte pct 3.9 % [facility] Comment: Interpretive Data Percent cell count reference ranges are not reported, since discordance with absolute values may lead to misinterpretation of CBC data. Current Interpretive Data was last revised on 2018. Testing performed by: [facility], [facility], [address] [place] [address] Eosinophil pct 0.7 % [facility] Comment: Interpretive Data Percent cell count reference ranges are not reported, since discordance with absolute values may lead to misinterpretation of CBC data. Current Interpretive Data was last revised on 2018. Testing performed by: [facility], [facility], [address] [place] [address] Basophil pct 0.3 % [facility] Comment: Interpretive Data Percent cell count reference ranges are not reported, since discordance with absolute values may lead to misinterpretation of CBC data. Current Interpretive Data was last revised on 2018. Testing performed by: [facility], [facility], [address] [place] [address] Blood 03/07/2025 4:18 PM CDT 03/07/2025 4:19 PM CDT Evelina Rodriguez DIAGRAMMER AND SEAMER LAB BLOOD ORDERABLES Fi nal Result [facility] [address] [facility]. Department [place] [address] * (ABNORMAL) CBC with auto differential (03/07/2025 4:18 PM CDT) WBC 9.13 3.80 - 9.90 K/cumm Comment:Testing performed by : [facility] 2, [address] [place] [address] Hgb 10.5(L) 11.9 - 15.5 g/dL [facility] Comment:Testing performed by : [place] [address], [address] [place] [address] Hct 33.7(L) 35.6 - 45.5 % [facility] Comment:Testing performed by : [facility] 2, [address] [place] [address] Plt 248 150 - 400 K/cumm [facility] Comment:Testing performed by : [place] [address], [address] [place] [address] MPV 10.1 9.1 - 12.3 fL [facility] Comment:Testing performed by : [place] [address], [address] [place] [address] RBC 3.97 3.90 - 5.20 M/cumm [facility] Comment:Testing performed by : [facility] 2, [address] [place] [address] MCV 84.9 81.3 - 96.4 fL [facility] Comment:Testing performed by : [facility] 2, [address] [place] [address] MCH 26.4(L) 27.1 - 33.3 pg [facility] Comment:Testing performed by : [facility], [facility], [address] [place] [address] MCHC 31.2(L) 32.3 - 35.7 g/dL [facility] Comment:Testing performed by : [facility], [facility], [address] [place] [address] RDW CV 18.4(H) 11.1 - 14.9 % [facility] Comment:Testing performed by : [facility], [facility], [address] [place] [address] RDW SD 57.5(H) 35.7 - 48.1 fL [facility] Comment:Testing performed by : [facility], [facility], [address] [place] [address] ANC Prelim 6.70(H) 1.50 - 6.50 K/cumm [facility] Comment: Interpretive Data The rapid ANC is a preliminary automated count and may vary from the final ANC (Neut Abs) reported in the WBC differential that follows. Current interpretive data was last revised 2025. Testing performed by: [facility], [facility] , [address] [place] [address] Blood 03/07/2025 4:18 PM CDT 03/07/2025 4:19 PM CDT Evelina Rodriguez NP LAB BLOOD ORDERABLES Fi nal Result [facility] [address] Department [place] [address] * (ABNORMAL) Erythrocyte sedimentation rate (03/07/2025 4:18 PM CDT) Erythrocyte sedimentation rate 45(H) 1 - 30 mm/hr Comment:Testing performed by : [facility], [address] [place] [address] Blood 03/07/2025 4:18 PM CDT 03/07/2025 5:05 PM CDT Evelina Rodriguez NP LAB BLOOD ORDERABLES Fi nal Result Performing Organization Address [facility] Co de Phone Number [facility] [address] [facility] [address] * (ABNORMAL) CRP (acute phase) (03/07/2025 4:18 PM CDT) Pathologist [facility] CRP 22.1(H) <=10.0 mg/L Comment:Testing performed by : [facility], [address], [place] [address] Blood 03/07/2025 4:18 PM CDT 03/07/2025 5:05 PM CDT Evelina Rodriguez NP LAB BLOOD ORDERABLES Fi nal Result Performing Organization Address [facility] de Phone Number [facility] [address] [facility] [place] [address] * (ABNORMAL) Comprehensive metabolic panel (03/07/2025 4:18 PM CDT) Pathologist [facility] Sodium 139 135 - 145 mmol/L Comment:Testing performed by : [facility], [address], [place] [address] Potassium, pl 4.7 3.3 - 4.9 mmol/L [facility] Comment:Testing performed by : [facility], [address], [place] [address] Chloride 102 97 - 110 mmol/L C[facility] Comment:Testing performed by : [facility], [address], [place] [address] CO2 25 22 - 32 mmol/L [facility] Comment:Testing performed by : [facility], [address], [place] [address] Anion gap 13 2 - 15 mmol/L [facility] Comment:Testing performed by : [facility], [address], [place] [address] BUN 21 6 - 25 mg/dL C[facility] Comment:Testing performed by : [facility], [address], [place] [address] Creatinine 1.13(H) 0.60 - 1.10 mg/dL C[facility] Comment:Testing performed by : [facility], [address], [place] [address] Glucose 105 70 - 199 mg/dL CERNER [...] was last revised 2022. Testing performed by: [facility], [address], [place] [address] Calcium 9.5 8.5 - 10.3 mg/dL C[facility] Comment:Testing performed by : [facility], [address], [place] [address] Bilirubin, total <0.1 0.1 - 1.2 mg/dL [facility] Comment:Testing performed by : [facility], [address], [place] [address] Protein, pl 7.5 6.5 - 8.5 g/dL C[facility] Comment:Testing performed by : [facility], [address], [place] [address] Albumin 3.7 3.5 - 5.0 g/dL C[facility]ER [facility] Comment:Testing performed by : [facility], [address], [place] [address] Alk phos 119 40 - 130 Units/L [facility] Comment:Testing performed by : [facility], [address], [place] [address] ALT 15 7 - 45 Units/L [facility] Comment:Testing performed by : [facility], [address] [place] [address] AST 23 10 - 45 Units/L [facility] Comment:Testing performed by : [facility], [address] [place] [address] Blood 03/07/2025 4:18 PM CDT 03/07/2025 5:05 PM CDT Evelina Rodriguez NP LAB BLOOD ORDERABLES Fi nal Result [facility] [address] Department [place] [address] * Dexa Axial Skeleton Bone Density 1 or 2 Site (01/31/2022 8:48 AM CDT) Anatomical Region Laterality Modality Body N/A Radiographic Paola ging Narrative 02/05/2022 12:34 PM CDT Patient Name: Helena Calvo Date of : 1955 Date of scan: 01/31/2022 Bone mineral density was performed on a HoloStereotaxis Discovery Densitometer. Based on machine cross-calibration and [...] by the International Society of Clinical Densitometry. [id number] Evelina Rodriguez NP IMG DXA PROCEDURES Karen l Result from Last 3 Months or Most Recently Relevant to Health Maintenance Insurance [facility] AETNA MEDICARE GOLD TNA MEDICARE GOLD Care Teams Chief Service Dispatcher Relationship Specialty Start Date End Date Fidencio Obregon DO PCP - General Internal Medicine 05/22/22 Fidencio Obregon DO Surgeon Internal Medicine 03/04/22
--- OUTSIDE RECORDS SUMMARY | 2025-06-06 10:50 | XMS_ITS | Clinical Summary ---
Author Organization [facility] Address [address] [place] [address] Phone Care Team Providers Care Lamp Stack Developer Name Role Phone StephaniesladeFidencio prince Primary Care [...] Encounters Date Type Department Care Team Description 04/26/2025 External Device Data STL ABSTRACTION Provider, Abstract 04/05/2025 External Device Data [facility] ABSTRACTION Provider, Abstract 03/31/2025 External Device Data [facility] ABSTRACTION Provider, Abstract 03/30/2025 External Device Data [facility] ABSTRACTION Provider, Abstract 03/29/2025 External Device Data [facility] ABSTRACTION Provider, Abstract 03/22/2025 External Device Data STL ABSTRACTION Provider, Abstract 03/15/2025 External Device Data STL ABSTRACTION Provider, Abstract [...] P M CDT Height 160 cm (5' 3) 05/29/2023 10:50 AM CDT Body Mass Index [...] - Risk 60-74 years 1-dose series) 2014 COVID-19 Vaccine (3 - 2023- season) 07/11/202410/2021, 12/29/2020 INFLUENZA VACCINE (#1) 2025 08/22/2023 OSTEOPOROSIS SCREENING 01/31/2027 01/31/2022, 2021 COLORECTAL SCREENING 06/02/2030 06/02/2020 Colorectal Cancer Screening 06/02/2030 Insurance Care Teams Lamp Stack Developer Relationship Specialty Start Date End Date Fidencio Obregon DO [address] [facility] [address] [place] [address] PCP - General Internal Medicine 06/26/23
--- OUTSIDE RECORDS SUMMARY | 2025-06-06 10:51 | XMS_ITS | Clinical Summary ---
Author Organization [facility] Address [address] [place] [address] Care Team Providers Care Tape Rules Printing Machine Operator Name Role Phone Unavailable Primary Care Provider [...] 1 - Tdap) 1973 Mammogram Screening 1994 Pneumococcal Vaccine: 50+ Ye ars (1 of 1 - PCV) 2004 Zoster Vaccines (1 of 2) 2004 Dexa Scan (General) 2019 COVID-19 Vaccine ( - 2023-2 5 [...]
[2025-06-06 13:06] LABS: Hematocrit 38.8 % (37.0-47.0); Hemoglobin 12.1 g/dL (12.0-15.0); Immature Granulocyte Percent A 0.4 % (0-0.5); Lymphocytes Absolute Auto 2.60 K/mm3 (0.9-3.2); Mean Corpuscular HGB Conc 31.2 g/dl (32-36); Mean Corpuscular Hemoglobin 27.8 pg (26-34); Mean Corpuscular Volume 89.0 fl (80-100); Nucleated Red Blood Cells Absolute Auto 0.000 K/mm3 (0.0-0.012); Nucleated Red Blood Cells Perc 0.0 % (0.0-0.2); Platelet Count Result 217 k/mm3 (150-375); Red Blood Count 4.36 M/mm3 (4.2-5.4); White Blood Count 8.1 K/mm3 (4.5-10.0)
[2025-06-06 13:43] LABS: Iron 67 ug/dL (37-170)
[2025-06-06 13:52] LABS: Percent Iron Saturation 26 % (20-50)
[2025-06-06 14:19] LABS: Alanine Aminotransferase 19 U/L (6-35); Albumin Level 4.2 g/dL (3.5-5.1); Alkaline Phosphatase 195 U/L (38-126); Anion Gap 10 mmol/L (4-12); Aspartate Amino Transferase 32 U/L (14-36); Bilirubin,Total 0.4 mg/dL (0.2-1.3); Blood Urea Nitrogen 21 mg/dL (7-17); Calcium 9.5 mg/dL (8.4-10.2); Carbon Dioxide 26 mmol/L (22-30); Chloride 100 mmol/L (98-107); Estimated Glomerular Filt Rate 40; Glucose 98 mg/dL (65-110); Potassium 4.1 mmol/L (3.4-5.0); Sodium 136 mmol/L (137-145); Total Protein 8.6 g/dL (6.3-8.2)
[2025-06-06 14:24] LABS: Ferritin 292.00 ng/mL (11.1-264)
[2025-06-06 14:55] LABS: Thyroid Stimulating Hormone 5.020 uIU/mL (0.465-4.680)
[2025-06-06 15:30] LABS: Vitamin B12 582.0 pg/mL (239-931)
== END 2025-06-06 10:24 | disposition home or self-care (01) ==
LOC: ANHGOSHLAB 10:24
PROVIDERS: PCP Internal Medicine; Visit Provider Clinical Nurse Specialist
DX: F41.9 Anxiety disorder, unspecified (principal); R00.1 Bradycardia, unspecified; I35.8 Other nonrheumatic aortic valve disorders; E03.9 Hypothyroidism, unspecified; M06.9 Rheumatoid arthritis, unspecified; J84.9 Interstitial pulmonary disease, unspecified; D64.9 Anemia, unspecified; Z86.79 Personal history of other diseases of the circulatory system
CPT/HCPCS: 36415; 80053; 82607; 82728; 82746; 83540; 83550; 84443; 85025

== ENCOUNTER 2025-07-27 08:13 | Outpatient (CLI) | payer MEDICARE, SELFPAY ==
--- OUTSIDE RECORDS SUMMARY | 2025-07-27 08:41 | XMS_ITS | Clinical Summary ---
Author Organization [facility] Address [address] [place] [address] Phone Care Team Providers Care Fence Builder Name Role Phone StephaniesladeFidencio prince Primary Care [...] years 1-dose series) 2014 INFLUENZA VACCINE (#1) 2025 08/22/2023 COVID-19 Vaccine (3 - 2024- season) 07/11/20251, 12/29/2020 OSTEOPOROSIS SCREENING 01/31/2027 01/31/2022, 2021 COLORECTAL SCREENING 06/02/2030 06/02/2020 Colorectal Cancer Screening 06/02/2030 Insurance Member Subscriber Plan / Payer (Ef fective 2021-Present) Name:Helena Calvo Rosa Relation to Subscriber:Self Name:Sydney Calvoyesi Lee Payer ID:[id number] (NAIC) Type:HMO Address: [place] [id number] Care Teams Fence Builder Relationship Specialty Start Date End Date Fidencio Obregon DO [address] [address] PCP - General Internal Medicine 06/26/23
--- OUTSIDE RECORDS SUMMARY | 2025-07-27 08:41 | XMS_ITS | Patient Health Record ---
Author Organization [facility] [employer] Address [address] [place] [address] Care Team Providers Care Ramp Attendant Name Role Phone Tommy Peacock Unavailable [phone] Reason For Referral No Information Medications Medication SIG (Take, Route, Frequency, Duration) Notes Start Date End Date Status DULoxetine HCl 30 MG Capsule Delayed Release Particles Oral 05/09/2021 Ac tive Famotidine 40 MG Tablet Oral 05/09/2021 Active busPIRone HCl 5 MG Tablet Oral 05/09/2021 Active Wellbutrin XL 300 MG Tablet Extended Release 24 Hour Oral 05/09/2021 Act ricardo Methotrexate 2.5 MG Tablet Oral 05/09/2021 Active Levothyroxine Sodium 100 MCG Tablet Oral 05/09/2021 Active Atomoxetine HCl 25 MG Capsule Oral 05/09/2021 Active Wellbutrin SR 200 MG Tablet Extended Release 12 Hour Oral 05/09/2021 Act ricardo Atomoxetine HCl 60 MG Capsule Oral 05/09/2021 Active Alclometasone Dipropionate 0.05 % Cream External 05/09/2021 Active buPROPion HCl ER (SR) 200 MG Tablet Extended Release 12 Hour Oral 05/09/2021 Active predniSONE 1 MG Tablet Oral 05/09/2021 Active buPROPion HCl ER (XL) 300 MG Tablet Extended Release 24 Hour Oral 05/09/2021 Active Folic Acid 1 MG Tablet Oral 05/09/2021 Active Vitamin D3 125 MCG (5000 UT) Tablet Chewable Oral 05/09/2021 Active Progesterone Micronized 100 MG Capsule Oral 05/09/2021 Active DULoxetine HCl 60 MG Capsule Delayed Release Particles Oral 05/09/2021 Ac tive Immunizations Vaccine Route Administration Date Status Comme nts Novel [id number], preservative free Unknown 10/02/2020 Administered Pfizer Biontech Covid-19 Vac cine 2nd dose Unknown 12/29/2020 Administered Pneumococcal polysaccharide PPV23 Unknown 10/02/2020 Ad ministered Social History Social History Additional Details Category Social Info Options Details Migrated Social History Migrated Social History Alcohol Intake: Occasional 04/22/2020,Tobacco Years: Never smoker 04/22/2020 Plan Of Treatment No Information Insurance Providers Payer Name Payer Address Payer Phone Subscriber Number Group Number Insured Name Patient Relationship to Insured Coverage Start Date Coverage End Date Medicare-I l Medicare [address] [place] [facility] [place] [phone] [id number] KAMERON GARCIA Self - patient is the insured [place] Of [address] [phone] [id number] KAMERON GARCIA Self - patient is the insured Medical (General) History Surgical History Surgery Date(Month/Year) Unlisted procedure breast () Appendectomy (46706) Removal of gallbladder (70355) Any surgical history 11/18/1980 Appendectomy (84558) 11/24/1987 Removal of gallbladder (70364) 7 Other 03/24/1997 Cosmetic surgery 03/24/2001 Reconstructive surgery 03/24/2001 Removal of gallbladder (68045) 0 Breast surgery (45136) 11/04/2002
--- OUTSIDE RECORDS SUMMARY | 2025-07-27 08:41 | XMS_ITS | Clinical Summary ---
Author Organization [facility] Address [address] [place] [address] Care Team Providers Care Endoscope Technician Name Role Phone Fidencio Obregon DO Unavailable [phone] Fidencio Obregon DO Primary Care Provider [phone] Allergies Active Allergy Reactions Criticality Noted Date Comments Meloxicam Vomiting Low 03/06/[address] (PROTONIX) 40 mg EC tablet 10/06/2021 Active levothyroxine (SYNTHROID) 75 mcg tablet Take 1 tablet (75 mcg total) by mouth daily 06/19/2022 Active predniSONE (DELTASONE) 5 mg tabletIndicatio ns:Rheumatoid arthritis involving multiple sites with positive rheumatoid factor (HCC) Take 1 tablet (5 mg) by mouth daily 90 tablet 1 02/07/2025 Active leflunomide (ARAVA) 10 mg tabletIndicatio ns:Rheumatoid Arthritis Take 1 tablet (10 mg total) by mouth daily 90 tablet 04/25/2025 Active celecoxib (CeleBREX) 100 mg capsule TAKE 1 CAPSULE BY MOUTH EVERY DAY 90 capsule 05/13/2025 Active Active Problems Problem Noted Date Diagnosed Date [...] on file Legal Sex Female 10:35 PM WEATHER TEACHER Gender Identity Female 11/29/2022 2:33 PM WEATHER TEACHER Sexual Orientation Straight 11/29/2022 2: 33 PM WEATHER TEACHER Occupation Industry Job Start Date Job End [...] 02/01/2024 01/31/2022, 01/31/2022 Covid-19 Vaccine ( season) 2025 11/14/2021, 01/19/2021, 12/29/2020 Influenza Vaccine (#1) 2025 [...] Bone mineral density was performed on a HoloLiquidHub Discovery Densitometer. Based on machine cross-calibration and [...] assessment and scan interpretation were performed by Cnosuelo Jones M.D. who is certified by the International Society of Clinical Densitometry. [id number] Evelina Rodriguez HELP DESK MANAGER IMG DXA PROCEDURES Karen l Result from Last 3 Months or Most Recently Relevant to Health Maintenance Insurance [facility] AETNA MEDICARE GOLD AETNA MEDICARE GOLD Care Teams Endoscope Technician Relationship Specialty Start Date End Date Fidencio Obregon DO PCP - General Internal Medicine 05/22/22 Fidencio Obregon DO Surgeon Internal Medicine 03/04/22
[2025-07-27 14:10] LABS: Hematocrit 35.8 % (37.0-47.0); Hemoglobin 10.8 g/dL (12.0-15.0); Immature Granulocyte Percent A 0.5 % (0-0.5); Lymphocytes Absolute Auto 3.67 K/mm3 (0.9-3.2); Mean Corpuscular HGB Conc 30.2 g/dl (32-36); Mean Corpuscular Hemoglobin 28.6 pg (26-34); Mean Corpuscular Volume 94.7 fl (80-100); Nucleated Red Blood Cells Absolute Auto 0.000 K/mm3 (0.0-0.012); Nucleated Red Blood Cells Perc 0.0 % (0.0-0.2); Platelet Count Result 189 k/mm3 (150-375); Red Blood Count 3.78 M/mm3 (4.2-5.4); White Blood Count 8.6 K/mm3 (4.5-10.0)
[2025-07-27 15:28] LABS: Alanine Aminotransferase 12 U/L (6-35); Albumin Level 3.8 g/dL (3.5-5.1); Alkaline Phosphatase 115 U/L (38-126); Anion Gap 6 mmol/L (4-12); Aspartate Amino Transferase 27 U/L (14-36); Bilirubin,Total 0.3 mg/dL (0.2-1.3); Blood Urea Nitrogen 14 mg/dL (7-17); Calcium 9.3 mg/dL (8.4-10.2); Carbon Dioxide 29 mmol/L (22-30); Chloride 105 mmol/L (98-107); Estimated Glomerular Filt Rate 58; Glucose 80 mg/dL (65-110); Potassium 4.2 mmol/L (3.4-5.0); Sodium 140 mmol/L (137-145); Total Protein 7.4 g/dL (6.3-8.2)
[2025-07-27 16:05] LABS: Thyroid Stimulating Hormone 11.600 uIU/mL (0.465-4.680)
[2025-07-27 16:10] LABS: Free T3 2.69 pg/mL (2.45-5.93); Free T4 Free Thyroxine 0.99 ng/dL (0.78-2.19)
[2025-07-27 16:25] LABS: Ferritin 132.00 ng/mL (11.1-264)
[2025-07-28 13:09] LABS: Albumin 3.2 g/dL (2.9-4.4); Alpha-1-Globulin 0.3 g/dL (0.0-0.4); Alpha-2-Globulin 1.0 g/dL (0.4-1.0); Gamma Globulin 1.2 g/dL (0.4-1.8)
[2025-07-29 15:09] LABS: Albumin, U 30.3 % (.); Alpha-1-Globulin, U 5.9 % (.); Alpha-2-Globulin, U 14.4 % (.); Beta Globulin, U 24.1 % (.); Gamma Globulin, U 25.3 % (.)
== END 2025-07-27 08:14 | disposition home or self-care (01) ==
LOC: ANHGOSHLAB 08:14
PROVIDERS: PCP Internal Medicine; Visit Provider Clinical Nurse Specialist
DX: D64.9 Anemia, unspecified (principal); E03.9 Hypothyroidism, unspecified
CPT/HCPCS: 36415; 80053; 82728; 84155; 84156; 84165; 84166; 84439; 84443; 84481; 85025

== ENCOUNTER 2025-08-31 08:39 | Outpatient (CLI) | payer MEDICARE, SELFPAY ==
[2025-08-31 16:25] LABS: Thyroid Stimulating Hormone 3.380 uIU/mL (0.465-4.680)
[2025-08-31 17:33] LABS: Free T3 3.61 pg/mL (2.45-5.93); Free T4 Free Thyroxine 1.44 ng/dL (0.78-2.19)
== END 2025-08-31 08:40 | disposition home or self-care (01) ==
LOC: ANHGOSHLAB 08:41
PROVIDERS: PCP Internal Medicine; Visit Provider Clinical Nurse Specialist
DX: E03.9 Hypothyroidism, unspecified (principal)
CPT/HCPCS: 36415; 84439; 84443; 84481

== ENCOUNTER 2025-08-31 14:38 | Outpatient (CLI) | payer MEDICARE, SELFPAY ==
--- OUTSIDE RECORDS SUMMARY | 2025-08-30 15:01 | XMS_ITS | Encounter Summary ---
Author Organization [facility] Address [address] [place] [address] Phone Care Team Providers Care Productivity Engineer Name Role Phone Fidencio Obregon DO Unavailable [phone] Fidencio Obregon DO Primary Care Provider Reason for Referral * Procedure (Routine) - Closed Specialty Diagnoses / Procedures Referred By Marcie mccord Referred To Contact Diagnoses ILD (interstitial lung disease) (HCC) Procedures Pulmonary Function Test -[facility]- CAM-8D; Spirometry, Oxygen Assessment Titration Bartolome Olivares MD [address] [place] [address] Phone: tel: fax: Referral ID Status Reason Start Date Expiration Date Visits Re quested Visits Authorized [id number] Closed 03/01/2025 03/31/2026 1 1 Reason for Visit * Procedure (Routine) - Closed Specialty Diagnoses / Procedures Referred By Contac t Referred To Contact Diagnoses ILD (interstitial lung disease) (HCC) Procedures Pulmonary Function Test -[facility]- CAM-8D; Spirometry, Oxygen Assessment Titration Bartolome Olivares MD [address] [place] [address] Phone: tel: fax: Referral ID Status Reason Start Date Expiration Date Visits Re quested Visits Authorized [id number] Closed 03/01/2025 03/31/2026 1 1 Encounter Details Date Type Department Care Team (Latest Contact Info) Description 08/30/2025 3:01 PM CDT - 08/30/2025 11:59 PM CDT Hospital Encounter [facility] Medicine Pulmonary [address] [place] [address] ILD (interstitial lung disease) ([facility]) Discharge Disposition: Discharge to home or self care Social History Tobacco Use Types Packs/Day Years [...] on file Legal Sex Female 10:35 PM CUSTOMER TRAINER Gender Identity Female 11/29/2022 2:33 PM CUSTOMER TRAINER Sexual Orientation Straight 11/29/2022 2: 33 PM CUSTOMER TRAINER Occupation Industry Job Start Date Job End Date Retired Not on file Not on file Not on file documented as of this encounter Medications at Time of Discharge alclomethasone (ACLOVATE) 0.05 % cream External 05/09/2021 ascorbate calcium, vitamin C, 500 mg tablet Take 500 mg by mouth 06/07/2025 busPIRone (BUSPAR) 5 mg tablet Oral 05/09/2021 celecoxib (CeleBREX) 100 mg capsule Take 1 capsule (100 mg total) by mouth daily 90 capsule 08/01/[address] (CYMBALTA) 30 mg capsule Oral 05/09/[address] (CYMBALTA) 60 mg capsule Oral 05/09/2021 ferrous sulfate 325 mg (65 mg of elemental iron) tablet Take 1 tablet (325 mg total) by mouth 06/07/2025 folic acid (FOLVITE) 1 mg tablet Oral 05/09/2021 leflunomide (ARAVA) 10 mg tabletIndication s:Rheumatoid Arthritis Take 1 tablet (10 mg total) by mouth daily 90 tablet 08/04/2025 11/02/[address] (PROTONIX) 40 mg EC tablet 10/06/2021 predniSONE (DELTASONE) 5 mg tabletIndication s:Rheumatoid arthritis involving multiple sites with positive rheumatoid factor (HCC) TAKE 1 TABLET BY MOUTH EVERY DAY 90 tablet 1 08/03/2025 levothyroxine (SYNTHROID) 75 mcg tablet Take 1 tablet (75 mcg total) by mouth daily 06/19/2022 08/31/2025 documented as of this encounter Discharge Disposition Disposition Code Departure Means Destination Discharge to home or self care documented in this encounter Plan of Treatment Pending Results Name Type Priority Associated Diagnoses Date /Time Pulmonary Function Test - PFT Routine ILD (interstitial lung disease) (HCC) 08/30/2025 3:32 PM CDT Scheduled Orders Name Type Priority Associated Diagnoses Orde r Schedule Pulmonary Function Test -[facility]- CAM-8D; Spirometry, Oxygen Assessment Titration PFT Routine ILD (interstitial lung disease) (HCC) Once for 1 Occurrences starting 08/30/2025 until 08/30/2025, 1 completed documented as of this encounter Visit Diagnoses Diagnosis ILD (interstitial lung disease) (HCC) Postinflammatory pulmonary fibrosis documented in this encounter Care Teams Productivity Engineer Relationship Specialty Start Date End Date Fidencio Obregon DO PCP - General Internal Medicine 05/22/22 Fidencio Obregon DO Surgeon Internal Medicine 03/04/22 documented as of this encounter
--- OUTSIDE RECORDS SUMMARY | 2025-08-30 16:30 | XMS_ITS | Encounter Summary ---
Author Organization [facility] Address [address] [place] [address] Phone Care Team Providers Care Digital Production Artist Name Role Phone Fidencio Obregon DO Unavailable [phone] Fidencio Obregon DO Primary Care Provider Reason for Referral * Procedure (Routine) - Authorized Specialty Diagnoses / Procedures Referred By Marcie mccord Referred To Contact Diagnoses ILD (interstitial lung disease) (HCC) Procedures Pulmonary Function Test -[facility] Adult PFT Lab- CAM-8D; Spirometry, Oxygen Assessment Titration Bartolome Olivares MD [address] [place] [address] Phone: tel: fax: Referral ID Status Reason Start Date Expiration Date V isits Requested Visits Authorized [id number] Authorized 08/30/2025 09/29/2026 1 1 Encounter Details Date Type Department Care Team (Late st Contact Info) Description 08/30/2025 4:30 PM CDT Office Visit 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 Gender Identity Female 11/29/2022 2:33 PM PORTABLE MACHINE SANDER Sexual Orientation Straight 11/29/2022 2: 33 PM PORTABLE MACHINE SANDER Occupation Industry Job Start Date Job End Date Retired Not on file Not on file Not on file documented as of this encounter Last Filed Vital Signs Vital Sign Reading Time Taken Comments Blood Pressure 108/70 08/30/2025 3:56 PM CDT Pulse 78 08/30/2025 3:56 PM CDT Temperature 36.6 C (97.8 F) 08/30/2025 3:56 PM CDT Respiratory Rate 18 08/30/2025 3:56 PM CDT Oxygen Saturation 99% 08/30/2025 3:56 PM CDT Inhaled Oxygen Concentration - - Weight 45.8 kg (101 lb) 08/30/2025 3:56 PM CDT Height 152.4 cm (5') 08/30/2025 3:56 PM CDT Body Mass Index 19.73 08/30/2025 3:56 PM CDT documented in this encounter Patient Instructions * Patient Instructions* Bartolome Olivares MD - 08/30/2025 4:30 PM CDT Your lung function is overall unchanged from last visit and is within normal limits. Your recent CTdemonstrated scarring in the lungs from the RA but did not demonstrate any progression or changes. Your oxygen levels are normal with exertion. Plan: - We can continue to monitor your lung function off any lung disease specific therapy, continue your joint medications with Rheumatology - Try to stay active as best as you can, goal of 120 minutes of moderate exercise per week (walking, stationary bike) - Stay up to date on vaccinations, Flu and Pneumonia with your PCP - RTC in 1 year or sooner if needed Please call Fatoum[facility] at [phone] with questions or concerns documented in this encounter Progress Notes * Bartolome Olivares MD - 08/30/2025 4:30 PM CDT [facility], [address] [place] [address], [address] [place] [address] PATIENT NAME: Helena Calvo : 1955 REX: 08/31/2025 PROBLEM LIST: ILD 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 Calvo is a 70 y.o. female with a history of PMHx of RA-ILD currently off therapy per patient preference who presents to clinic for a 6 month follow up visit. At that visit, her spirometry was within normal limits and repeat HRCT was overall unchanged with stable SARD-ILD pattern. The decision was made to direct therapy at her joints, given her desire to minimize medications. Since last visit, she reports her breathing is overall unchanged. She denies any dyspnea on a dailybasis, albeit she does not push herself much but denies any dyspnea with her ADLs such as dressing,bathing, light housework, or walking on a flat surface. She denies any coughing, wheezing, chest tightness, or recent ED/ UC visits for respiratory symptoms. She denies any dizziness, lightheadedness, syncope, or LE edema. She continues to follow with Rheumatology, has an appointment next week. Currently on 5mg of prednisone and leflunomide. No other questions or concerns today HOME MEDICATIONS: alclomethasone (ACLOVATE) 0.05 % cream ascorbate calcium, vitamin C, 500 mg tablet busPIRone (BUSPAR) 5 mg tablet celecoxib (CeleBREX) [address] (CYMBALTA) [address] (CYMBALTA) 60 mg capsule ferrous sulfate 325 mg (65 mg of elemental iron) tablet folic acid (FOLVITE) 1 mg tablet leflunomide (ARAVA) [address] (PROTONIX) 40 mg EC tablet predniSONE (DELTASONE) 5 mg tablet levothyroxine (SYNTHROID) 75 mcg tablet REVIEW OF SYSTEMS: All systems reviewed and negative otherwise stated in HPI PHYSICAL EXAMINATION: Vitals: BP 108/70 Pulse 78 Temp 36.6 ??C (97.8 ??F) (Temporal) Resp 18 Ht 152.4 cm (5') Wt 45.8 kg (101 lb) SpO2 99% BMI 19.73 kg/m?? Wt Readings from Last 3 Encounters: 08/30/25 45.8 kg (101 lb) 03/07/25 41.9 kg (92 lb 4.8 oz) 03/01/25 40.4 kg (89 lb) General: Alert, NAD, accompanied by her sister HEENT: MMM, No OP lesions, no thrush Lungs: Crackles in the bases, no wheezing, no increased WOB Heart: RRR Abdomen: Thin, NTND Extremities: WWP, no edema, no clubbing Skin: No rashes DATA REVIEW: Spirometry: FEV1 1.81L/100%, FVC 2.08L/90% , FEV/FVC 87%. This is consistent with normal spirometrythat is overall unchanged from last visit. 6 Minute Walk: Six minute walk test was performed. Patient walked 900 feet in 6 minutes with a resting heart rate of 95 and resting oxygen saturation of 100%. Oxygen saturation claire was 97%. Required 0 L of oxygen to maintain Sp02 above 88%. Concluding heart rate of 111. Concluding Evert score 0. IMPRESSION/PLAN: Ms. Calvo is a 70 y.o. female with a history of PMHx of RA-ILD currently off therapy per patient preference who presents to clinic for a 6 month follow up visit. Overall, she continues to do well with minimal pulmonary symptoms and normal spirometry. Recommendations as follows: RA-ILD: CTM symptoms and lung function off ILD specific therapy and continue to target medications towards her joints per Rheuamtolgy given stability of her pulmonary disease PH Screening: Last TTE 04/2024 without concerning signs of PH. CTM every 24 months. Deconditioning: discussed the importance of maintaining regular exercise HCM: She will discuss flu and pneumonia vaccines with her PCP RTC in 12 months with repeat Spi and O2A or sooner if needed. Bartolome Olivares MD Customer Care Voice Consultantjewelry department supervisor Division of Pulmonary and Critical Care documented in this encounter Plan of Treatment Scheduled Orders Name Type Priority Associated Diagnoses Orde r Schedule Pulmonary Function Test -[facility]- CAM-8D; Spirometry, Oxygen Assessment Titration PFT Routine ILD (interstitial lung disease) (HCC) Expected: 08/30/2026 (Approximate), Expires: 02/28/2027 documented as of this encounter Visit Diagnoses Diagnosis ILD (interstitial lung disease) ([facility])- Primary Postinflammatory pulmonary fibrosis Physical deconditioning Muscular wasting and disuse atrophy, not elsewhere classified Healthcare maintenance documented in this encounter Discontinued Medications Medication Sig Discontinue Reason Start Date End Da te levothyroxine (SYNTHROID) 75 mcg tablet Take 1 tablet (75 mcg total) by mouth daily Therapy completed 06/19/2022 08/31/2025 documented as of this encounter Historical Medications * This list may reflect changes made after this encounter. folic acid (FOLVITE) 1 mg tablet Oral 05/09/2021 ferrous sulfate 325 mg (65 mg of elemental iron) tablet Take 1 tablet (325 mg total) by mouth 06/07/[address] (CYMBALTA) 60 mg capsule Oral 05/09/[address] (CYMBALTA) 30 mg capsule Oral 05/09/2021 busPIRone (BUSPAR) 5 mg tablet Oral 05/09/2021 ascorbate calcium, vitamin C, 500 mg tablet Take 500 mg by mouth 06/07/2025 alclomethasone (ACLOVATE) 0.05 % cream External 05/09/2021 added in this encounter Care Teams Digital Production Artist Relationship Specialty Start Date End Date Fidencio Obregon DO PCP - General Internal Medicine 05/22/22 Fidencio Obregon DO Surgeon Internal Medicine 03/04/22 documented as of this encounter
--- NOTE | ~2025-08-31 | DEXA_ITS ---
Bone Density Report Name: KAMERON GARCIA Age: 70 Sex: Female Ethnicity: White Date of : 1955 Indication: postmenopausal; screening for osteoporosis; height loss; rheumatoid arthritis; Referring Provider: OMAIRA RABAGO Study: Bone densitometry was performed. Exam Date: August 31, 2025 Accession number: [id number] Bone Density: Region BMD T-score Z-score Classification AP Spine(L1-L4) 0.889 -1.4 0.8 Osteopenia Femoral Neck (Left) 0.492 -3.2 -1.3 Osteoporosis Total Hip (Left) 0.557 -3.2 -1.6 Osteoporosis Femoral Neck (Right) 0.523 -2.9 -1.0 Osteoporosis Total Hip (Right) 0.510 -3.5 -1.9 Osteoporosis Total Hip Mean 0.534 -3.4 -1.8 Osteoporosis World Health Organization criteria for BMD impression classify patients as: Normal (T-score at or above -1.0), Osteopenia (T-score between -1.0 and -2.5), or Osteoporosis (T-score at or below -2.5). 10-year Fracture Risk: FRAX not reported because: Some T-score for Spine Total or Hip Total or Femoral Neck at or below -2.5 Clinical Information Provided by Patient: Has rheumatoid arthritis Has used the following medications: Vitamin D Patient maximum height was 64.0 Menopause Age: 46 No regular weight bearing exercise Does not regularly consume dairy products Drinks caffeinated beverages Onset of menses at age 12 Number of children 1 Impression: The patient has osteoporosis, based on the Right Total Hip T-score. Discussion: INCREASED RISK OF FRACTURE. BONE DENSITY IS UNDESIRABLY LOW AT ONE OR MORE SKELETAL SITES, CONSISTENT WITH POSTMENOPAUSAL OSTEOPOROSIS. This patient's lowest T-score meets the World Health Organization's (WHO) criteria for osteoporosis at one or more sites (T-score -2.5 or below). In untreated patients, the risk of osteoporotic fracture increases approximately two-fold for each 1.0 SD decrease in T-score. Low bone density is not the only risk factor for fracture; also consider factors such as patient's age, frailty or poor health, risk of falling, risk of injury, previous osteoporotic fracture, family history of osteoporosis, cigarette smoking, low body weight, etc. Not everyone with low bone mineral density has osteoporosis; osteomalacia and other metabolic bone disorders should also be considered. Patients who have osteoporosis should be evaluated for specific diseases and conditions (secondary causes) that may cause or contribute to bone loss. The [place] Association of Clinical Endocrinologists (AACE) and National Osteoporosis Foundation (NOF) recommend pharmacologic intervention for all postmenopausal women whose T-score is in this range. The patient should follow a healthful lifestyle (good nutrition with adequate calcium and vitamin D, and appropriate weight-bearing exercise). Follow-Up: Consider a repeat BMD and Vertebral Fracture Assessment (VFA) exam in 2 years or sooner if medically necessary, to reassess this patient's status. Reported by: JANNETH on 08/31/2025 3:27:00 PM. Reviewed, dictated and finalized at location A.
--- OUTSIDE RECORDS SUMMARY | 2025-08-31 18:54 | XMS_ITS | Patient Health Record ---
Author Organization [facility] [place] [facility] Address [address] [place] [address] Care Team Providers Care Florist Designer Name Role Phone Lalita Delong Unavailable [phone] Reason For Referral No Information Medications Medication SIG (Take, Route, Frequency, Duration) Notes Start Date End Date Status predniSONE 1 MG Tablet Oral 05/09/2021 Active Levothyroxine Sodium 100 MCG Tablet Oral 05/09/2021 Active Alclometasone Dipropionate 0.05 % Cream External 05/09/2021 Active Immunizations Vaccine Route Administration Date Status Comme nts Pneumococcal polysaccharide PPV23 Unknown 10/02/2020 Ad ministered Pfizer Biontech Covid-19 Vac cine 2nd dose Unknown 12/29/2020 Administered Novel [id number], preservative free Unknown 10/02/2020 Administered Social History Tobacco Use: Social History Observation Description Date Details (start date - stop date) Never Smoker NA - NA Sex Assigned At : Social History Observation Description Sex Assigned At Female Social History Miscellaneous: Social Info Question Answer Notes Safety issues: Are there any firearms in the house? No Social History Social Info Question Answer Notes Household: Marital Status: Number of Adults in household: 2 Level of Education: Finished High School Drug/Alcohol: Social Info Question Answer Notes Drugs Have you used drugs other than those for medical reasons in the past 12 months? No AUDIT-C (Standard) Did you have a drink containing alcohol in the past year? No Tobacco Use: Social Info Question Answer Notes Tobacco Control (Standard) Tobacco use: Nonsmoker Additional Details Category Social Info Options Details Migrated Social History Migrated Social History Alcohol Intake: Occasional 04/22/2020,Tobacco Years: Never smoker 04/22/2020 Problems Problem Type SNOMED Code ICD Code Onset Dates Problem Status W/U Status Risk Notes Problem Severe recurrent major depression without psychotic features (98978496) Major depressive disorder, recurrent severe without psychotic features (F33.2) Active confirmed Vital Signs Heart Rate 98 /min 08/29/2025 Height-cm 160.02 cm 08/29/2025 Blood pressure diastolic 85 mm Hg 08/29/2025 Weight-kg 46.63 kg 08/29/2025 Height 63.00 in 08/29/2025 Blood pressure systolic 102 mm Hg 08/29/2025 Weight 102.8 lbs 08/29/2025 BMI 18.21 kg/m2 08/29/2025 Encounters Encounter Location Date Provider Diagnosis [facility] [place] [facility], [place] [address] [place] [address] 08/29/2025 Lalita Delong Major depressive disorder, recurrent severe without psychotic features F33.2 and Other specified problems related to primary support group Z63.8 Assessments Encounter Date Diagnosis (ICD Code) Assessment Notes Treatment Notes Treatment Clinical Notes Section Notes 08/29/2025 Major depressive disorder, recurrent severe without psychotic features (ICD-10 - F33.2) Family estrangement and interpersonal conflict Assessment: Patient reports significant family dysfunction with estrangement from multiple family members including her youngest sister, mother (age 97), and strained relationship with her son and [id number]. Recent escalation occurred yesterday when discussion with son about housing conditions deteriorated into screaming match, with sister also becoming involved. Patient moved into [facility] on June 10 with younger sister due to previous living situation conflicts. Son expressed concerns about cat odor in new residence and patient's health limitations affecting her ability to attend grandchildren's activities. Patient feels unwelcome at family gatherings and reports son may have aligned with estranged sister's perspective. Pattern suggests ongoing interpersonal difficulties with aggressive communication style during conflicts. Plan: - Weekly therapy sessions focusing on interpersonal relationship skills and conflict resolution - Patient scheduled for next week with option for additional sessions if needed Depression with functional impairment Assessment: Patient presents with significant depressive symptoms including decreased sleep (4-5 hours nightly, previously slept excessively), poor appetite with reduced food intake, loss of interest in daily activities, social isolation, and feelings of worthlessness. Reports feeling like she has nothing to offer others and would be a downer as a friend. Has lost touch with important relationships over past 20 years and has not established new friendships since returning from [place] in 2020. Passive suicidal ideation present - states she is not suicidal but would not prevent if serious illness occurred. Significant functional decline with inability to perform activities of daily living including cooking, cleaning, and difficulty with bathing due to physical limitations. Plan: - Weekly cognitive behavioral therapy sessions - Patient declined medication management at this time, preferring to avoid antidepressants unless certain of benefit - Option to meet with nurse practitioner for medication evaluation if patient changes mind - Encourage resuming generic Ensure for nutritional support, which patient expressed willingness to try again Anger management difficulties Assessment: Patient reports difficulty controlling anger and irritability. Recent escalation to screaming match with son represents pattern of aggressive verbal conflicts, though patient indicates this type of escalation has occurred before. Patient describes herself as a runner with tendency to leave situations rather than resolve conflicts. Acknowledges anger control issues as problematic area requiring intervention. Plan: - Address anger management techniques through weekly therapy sessions - Focus on alternative conflict resolution strategies beyond avoidance Ruminating thoughts Assessment: Patient reports experiencing repetitive thoughts that she gets stuck on and cannot let go of, thinking about them over and over. This rumination pattern likely contributes to her overall distress and may be related to her depressive symptoms and interpersonal conflicts. Plan: - Address rumination patterns through cognitive behavioral therapy techniques during weekly sessions Physical health limitations Assessment: Patient has multiple medical conditions including herniated discs, rheumatoid arthritis, and hypothyroidism (treated with levothyroxine). Takes prednisone and uses Advil for pain management. Reports chronic back pain, walking imbalance, and difficulty with mobility including inability to shower (takes baths with difficulty getting in/out of tub). No longer drives. Physical limitations significantly impact her ability to participate in family activities and contribute to social isolation and depression. These health issues also affect her capacity for self-care and independent living. Plan: - Address impact of physical limitations on mood and social functioning through therapy - Patient receives weekly hair care, monthly manicures, and facial/waxing services every 3 weeks for self-care maintenance 08/29/2025 Other specified problems related to primary support group (ICD-10 - Z63.8) Estranged from youngest sister, mother, and possibly son and grandchildren Family estrangement and interpersonal conflict Assessment: Patient reports significant family dysfunction with estrangement from multiple family members including her youngest sister, mother (age 97), and strained relationship with her son and [id number]. Recent escalation occurred yesterday when discussion with son about housing conditions deteriorated into screaming match, with sister also becoming involved. Patient moved into [facility] on June 10 with younger sister due to previous living situation conflicts. Son expressed concerns about cat odor in new residence and patient's health limitations affecting her ability to attend grandchildren's activities. Patient feels unwelcome at family gatherings and reports son may have aligned with estranged sister's perspective. Pattern suggests ongoing interpersonal difficulties with aggressive communication style during conflicts. Plan: - Weekly therapy sessions focusing on interpersonal relationship skills and conflict resolution - Patient scheduled for next week with option for additional sessions if needed Depression with functional impairment Assessment: Patient presents with significant depressive symptoms including decreased sleep (4-5 hours nightly, previously slept excessively), poor appetite with reduced food intake, loss of interest in daily activities, social isolation, and feelings of worthlessness. Reports feeling like she has nothing to offer others and would be a downer as a friend. Has lost touch with important relationships over past 20 years and has not established new friendships since returning from [place] in 2019. Passive suicidal ideation present - states she is not suicidal but would not prevent if serious illness occurred. Significant functional decline with inability to perform activities of daily living including cooking, cleaning, and difficulty with bathing due to physical limitations. Plan: - Weekly cognitive behavioral therapy sessions - Patient declined medication management at this time, preferring to avoid antidepressants unless certain of benefit - Option to meet with nurse practitioner for medication evaluation if patient changes mind - Encourage resuming generic Ensure for nutritional support, which patient expressed willingness to try again Anger management difficulties Assessment: Patient reports difficulty controlling anger and irritability. Recent escalation to screaming match with son represents pattern of aggressive verbal conflicts, though patient indicates this type of escalation has occurred before. Patient describes herself as a runner with tendency to leave situations rather than resolve conflicts. Acknowledges anger control issues as problematic area requiring intervention. Plan: - Address anger management techniques through weekly therapy sessions - Focus on alternative conflict resolution strategies beyond avoidance Ruminating thoughts Assessment: Patient reports experiencing repetitive thoughts that she gets stuck on and cannot let go of, thinking about them over and over. This rumination pattern likely contributes to her overall distress and may be related to her depressive symptoms and interpersonal conflicts. Plan: - Address rumination patterns through cognitive behavioral therapy techniques during weekly sessions Physical health limitations Assessment: Patient has multiple medical conditions including herniated discs, rheumatoid arthritis, and hypothyroidism (treated with levothyroxine). Takes prednisone and uses Advil for pain management. Reports chronic back pain, walking imbalance, and difficulty with mobility including inability to shower (takes baths with difficulty getting in/out of tub). No longer drives. Physical limitations significantly impact her ability to participate in family activities and contribute to social isolation and depression. These health issues also affect her capacity for self-care and independent living. Plan: - Address impact of physical limitations on mood and social functioning through therapy - Patient receives weekly hair care, monthly manicures, and facial/waxing services every 3 weeks for self-care maintenance Plan Of Treatment Next Appt Details Provider Name:Lalita Lou kameron, 09/05/2025 03:00:00 PM, [address], [facility] [address], [place], [address], Insurance Providers Payer Name Payer Address Payer Phone Subscriber Number Group Number Insured Name Patient Relationship to Insured Coverage Start Date Coverage End Date [employer] - Prime [employer] Replacemen t/Advantag e - Hmo [address] [place] [address] [id number] KAMERON GARCIA Self - patient is the insured [address] [place] [address] [id number] SHARIFAPATRICK RodriguezAN Self - patient is the insured Medical (General) History Medical History History ICD Code Problems: Attention deficit hyperactivit y disorder Chronic low back pain Chronic post-traumatic stress disorder Gastroesophageal reflux disease Generalized anxiety disorder Hyperlipidemia Long-term current use of drug therapy Obstructive sleep apnea syndrome Polymyalgia rheumatica Severe recurrent major depression withou t psychotic features , Past Psychiatric History: Anxiety Disord er,Bipolar Disorder Surgical History Surgery Date(Month/Year) Unlisted procedure breast () Appendectomy (29671) Removal of gallbladder (47458) Any surgical history 11/18/1980 Appendectomy (77988) 11/24/1987 Removal of gallbladder (63819) 7 Other 03/24/1997 Cosmetic surgery 03/24/2001 Reconstructive surgery 03/24/2001 Removal of gallbladder (49535) 0 Breast surgery (48345) 11/04/2002
--- OUTSIDE RECORDS SUMMARY | 2025-08-31 18:55 | XMS_ITS | Encounter Summary ---
Author Organization [facility] Address [address] [place] [address] Phone Care Team Providers Care Fly Rail Operator Name Role Phone Fidencio Obregon DO Unavailable [phone] Fidencio Obregon DO Primary Care Provider Encounter Details Date Type Department Care Team (Latest Contact Info) Description 08/03/2025 Results Follow-Up [facility] Medicine Rheumatology [address] [facility] [address] [place] [address] Evelina Rodriguez, WIRELESS SALES MANAGER [address] [place] [address] CBC with auto differential, Comprehensive metabolic panel, Erythrocyte sedimentation rate, Additional followed-up results: 3 Social History Tobacco Use Types Packs/Day Years [...] on file Legal Sex Female 10:35 PM RAT CULTURIST Gender Identity Female 11/29/2022 2:33 PM RAT CULTURIST Sexual Orientation Straight 11/29/2022 2: 33 PM RAT CULTURIST Occupation Industry Job Start Date Job End Date Retired Not on file Not on file Not on file documented as of this encounter Plan of Treatment Not on file documented as of this encounter Visit Diagnoses Not on filedocumented in this encounter Care Teams Fly Rail Operator Relationship Specialty Start Date End Date Fidencio Obregon DO PCP - General Internal Medicine 05/22/22 Fidencio Obregon DO Surgeon Internal Medicine 03/04/22 documented as of this encounter
--- OUTSIDE RECORDS SUMMARY | 2025-08-31 18:55 | XMS_ITS | Clinical Summary ---
Author Organization [facility] Address [address] [place] [address] Care Team Providers Care Bridge Operator Slip Name Role Phone Fidencio Obregon DO Unavailable [phone] Fidencio Obregon DO Primary Care Provider Allergies Active Allergy Reactions Criticality Noted Date Comments Meloxicam Vomiting Low 03/06/[address] (PROTONIX) 40 mg EC tablet 10/06/20 21 Active celecoxib (CeleBREX) 100 mg capsule Take 1 capsule (100 mg total) by mouth daily 90 capsule 08/01/20 25 Active predniSONE (DELTASONE) 5 mg tabletIndicati ons:Rheumatoid arthritis involving multiple sites with positive rheumatoid factor (HCC) TAKE 1 TABLET BY MOUTH EVERY DAY 90 tablet 1 08/03/20 25 Active leflunomide (ARAVA) 10 mg tabletIndicati ons:Rheumatoid Arthritis Take 1 tablet (10 mg total) by mouth daily 90 tablet 08/04/20 25 025 Active alclomethasone (ACLOVATE) 0.05 % cream External 05/09/20 21 Active ascorbate calcium, vitamin C, 500 mg tablet Take 500 mg by mouth 06/07/20 25 Active busPIRone (BUSPAR) 5 mg tablet Oral 05/09/[address] (CYMBALTA) 30 mg capsule Oral 05/09/[address] (CYMBALTA) 60 mg capsule Oral 05/09/20 21 Active ferrous sulfate 325 mg (65 mg of elemental iron) tablet Take 1 tablet (325 mg total) by mouth 06/07/20 25 Active folic acid (FOLVITE) 1 mg tablet Oral 05/09/20 21 Active levothyroxine (SYNTHROID) 75 mcg tablet Take 1 tablet (75 mcg total) by mouth daily 06/19/20 22 025 Discontinued(Th erapy completed) predniSONE (DELTASONE) 5 mg tabletIndicati ons:Rheumatoid arthritis involving multiple sites with positive rheumatoid factor (HCC) Take 1 tablet (5 mg) by mouth daily 90 tablet 1 02/08/20 25 025 Discontinued leflunomide (ARAVA) 10 mg tabletIndicati ons:Rheumatoid Arthritis Take 1 tablet (10 mg total) by mouth daily 90 tablet 04/25/20 25 025 Discontinued(Re order) Active Problems Problem Noted Date Diagnosed Date [...] Encounters Date Type Department Care Team Description 08/30/2025 4:30 PM CDT Office Visit [facility] Medicine Pulmonary [address] 8th [place] [address] [place] [address] Bartolome Olivares MD ILD (interstitial lung disease) (HCC) (Primary Dx); Physical deconditioning; Healthcare maintenance 08/30/2025 3:01 PM CDT - 08/30/2025 11:59 PM CDT Hospital Encounter [facility] Medicine Pulmonary [address] [place] [address] ILD (interstitial lung disease) (HCC) Discharge Disposition: Discharge to home or self care 08/30/2025 Telephone [facility] Medicine Pulmonary [address] [place] [address] [place] [address] Arnoldo Bui CMA 08/03/2025 10:55 AM CDT Lab [place] [id number] High risk medication use 08/03/2025 Results [facility] [address] [facility] [address] [place] [id number] Evelina Rodriguez NP CBC with auto differential, Comprehensive metabolic panel, Erythrocyte sedimentation rate, Additional followed-up results: 3 08/01/2025 Orders Only [facility] [address] [place] [address] Medical Office Building [address] [place] [address] Noemí Nguyen RMA High risk medication use (Primary Dx) from Last 3 Months Immunizations Immunization Administration [...] on file Legal Sex Female 10:35 PM INFORMATION ASSURANCE Gender Identity Female 11/29/2022 2:33 PM INFORMATION ASSURANCE Sexual Orientation Straight 11/29/2022 2: 33 PM INFORMATION ASSURANCE Occupation Industry Job Start Date Job End [...] Mass Index 19.73 08/30/2025 3:56 PM CDT Plan of Treatment Health Maintenance Due Date Last Done Comments Breast Cancer Screening-Mammogram 1955 Colon Cancer Screening-Colonoscopy 1955 Fall Risk Assessment 1955 Hepatitis C Screening 1955 DTaP/Tdap/Td Vaccine (1 - Tdap) 1965 Hepatitis B Screening 1972 Zoster Vaccine (1 of 2) 2004 Well Visit 65+ 2019 Pneumococcal vaccine 65+ (2 of 2 - PCV) 10/24/2021 10/24/2020, 10/02/2020 Depression Screening 05/28/2023 05/28/2022 Osteoporosis Screening-Bone Density Scan 02/01/2024 01/31/2022 Covid-19 Vaccine ( season) 2025 11/14/2021, 01/19/2021, 12/29/2020 Influenza Vaccine (#1) 2025 11/14/2021, 2019 Procedures Procedure Name Priority Date/Time Associated Diagnosis Comments EGFR Routine 08/03/2025 10:59 AM CDT High risk medication use DIFFERENTIAL AUTO Routine 08/03/2025 10: 59 AM CDT High risk medication use CRP (ACUTE PHASE) Routine 08/03/2025 10: 59 AM CDT High risk medication use ERYTHROCYTE SEDIMENTATION RATE Routine 08/03/2025 10:59 AM CDT High risk medication use COMPREHENSIVE METABOLIC PANEL Routine 08/03/2025 10:59 AM CDT High risk medication use CBC WITH AUTO DIFFERENTIAL Routine 08/03/2025 10:59 AM CDT High risk medication use DEXA AXIAL SKELETON BONE DENSITY 1 OR MORE SITES Schedule Routine, Read Routine (OP Routine) 01/31/2022 8:48 AM CDT Age-related osteoporosis without current pathological fracture from Last 3 Months or Most Recently Relevant to Health Maintenance Results * eGFR (08/03/2025 10:59 AM CDT) eGFR 63 >=60 mL/min/1. 73 m2 Comment: Interpretive Data [...] Current interpretive data was last reviewed 2021. Blood 08/03/2025 10:5 9 AM CDT 08/03/2025 1:54 PM CDT Evelina Rodriguez NP LAB BLOOD ORDERABLES nal Result [facility] [address] [facility] [address] [place] [address] * Differential, auto (08/03/2025 10:59 AM CDT) Pathologist [facility] Neutrophil abs 5.01 1.50 - 6.50 K/cumm Imm gran abs 0.02 0.00 - 0.10 K/cumm [facility] Lymphocyte abs 1.96 0.80 - 3.30 K/cumm [facility] Monocyte abs 0.62 0.20 - 0.80 K/cumm [facility] Eosinophil abs 0.28 0.00 - 0.50 K/cumm [facility] Basophil abs 0.07 0.00 - 0.10 K/cumm [facility] Neutrophil pct 62.9 % [facility] Comment: Interpretive Data Percent cell count reference ranges are not reported, since discordance with absolute values may lead to misinterpretation of CBC data. Current Interpretive Data was last revised on 2018. Imm gran pct 0.3 % [facility] Comment: Interpretive Data Percent cell count reference ranges are not reported, since discordance with absolute values may lead to misinterpretation of CBC data. Current Interpretive Data was last revised on 2018. Lymphocyte pct 24.6 % [facility] Comment: Interpretive Data Percent cell count reference ranges are not reported, since discordance with absolute values may lead to misinterpretation of CBC data. Current Interpretive Data was last revised on 2018. Monocyte pct 7.8 % [facility] Comment: Interpretive Data Percent cell count reference ranges are not reported, since discordance with absolute values may lead to misinterpretation of CBC data. Current Interpretive Data was last revised on 2018. Eosinophil pct 3.5 % [facility] Comment: Interpretive Data Percent cell count reference ranges are not reported, since discordance with absolute values may lead to misinterpretation of CBC data. Current Interpretive Data was last revised on 2018. Basophil pct 0.9 % [facility] Comment: Interpretive Data Percent cell count reference ranges are not reported, since discordance with absolute values may lead to misinterpretation of CBC data. Current Interpretive Data was last revised on 2018. Blood 08/03/2025 10:5 9 AM CDT 08/03/2025 1:54 PM CDT Evelina Rodriguez PHYSICAL THERAPY AIDES TEACHER LAB BLOOD ORDERABLES Fi nal Result [place] [id number] [facility] Department [place] [address] * (ABNORMAL) CBC with auto differential (08/03/2025 10:59 AM CDT) WBC 7.96 3.80 - 9.90 K/cumm Hgb 10.8(L) 11.9 - 15.5 g/dL [facility] Hct 34.0(L) 35.6 - 45.5 % [facility] Plt 188 150 - 400 K/cumm [facility] MPV 11.7 9.1 - 12.3 fL [facility] RBC 3.64(L) 3.90 - 5.20 M/cumm [facility] MCV 93.4 81.3 - 96.4 fL [facility] MCH 29.7 27.1 - 33.3 pg [facility] MCHC 31.8(L) 32.3 - 35.7 g/dL [facility] RDW CV 15.2(H) 11.1 - 14.9 % [facility] RDW SD 52.0(H) 35.7 - 48.1 fL [facility] NRBC abs 0.00 0.00 - 0.01 K/cumm [facility] Blood 08/03/2025 10:5 9 AM CDT 08/03/2025 1:54 PM CDT us Evelina Rodriguez PHYSICAL THERAPY AIDES TEACHER LAB BLOOD ORDERABLES Fi nal Result Performing Organization Address [facility] Co de Phone Number [address] [address] * (ABNORMAL) Erythrocyte sedimentation rate (08/03/2025 10:59 AM CDT) [facility] Erythrocyte sedimentation rate 61(H) 1 - 30 mm/hr Blood 08/03/2025 10:5 9 AM CDT 08/03/2025 1:54 PM CDT us Evelina Rodriguez PHYSICAL THERAPY AIDES TEACHER LAB BLOOD ORDERABLES Fi nal Result Performing Organization Address [facility] de Phone Number [address] [place] [address] * (ABNORMAL) CRP (acute phase) (08/03/2025 10:59 AM CDT) [facility] CRP 13.5(H) <=10.0 mg/L Blood 08/03/2025 10:5 9 AM CDT 08/03/2025 1:54 PM CDT us Evelina Rodriguez PHYSICAL THERAPY AIDES TEACHER LAB BLOOD ORDERABLES Fi nal Result Performing Organization Address [facility] Co de Phone Number [address] [address] * Comprehensive metabolic panel (08/03/2025 10:59 AM CDT) [facility] Sodium 140 135 - 145 mmol/L Potassium, pl 4.6 3.3 - 4.9 mmol/L [facility] Chloride 104 97 - 110 mmol/L [facility] CO2 28 22 - 32 mmol/L [facility] Anion gap 8 2 - 15 mmol/L [facility] BUN 11 6 - 25 mg/dL [facility] Creatinine 0.96 0.60 - 1.10 mg/dL [facility] Glucose 92 70 - 199 mg/dL [facility] Comment: Interpretive Data Fasting glucose >/= 126 [...] Current interpretive data was last revised 2022. Calcium 9.8 8.5 - 10.3 mg/dL [facility] Bilirubin, total 0.2 0.1 - 1.2 mg/dL [facility] Protein, pl 7.1 6.5 - 8.5 g/dL [facility] Albumin 3.7 3.5 - 5.0 g/dL [facility] Alk phos 124 40 - 130 Units/L [facility] ALT 7 7 - 45 Units/L [facility] AST 25 10 - 45 Units/L [facility] Blood 08/03/2025 10:5 9 AM CDT 08/03/2025 1:54 PM CDT Evelina Rodriguez NP LAB BLOOD ORDERABLES nal Result [facility] [address] [facility] Department of Laboratories [place], [place] [id number] * Dexa Axial Skeleton Bone Density 1 or 2 Site (01/31/2022 8:48 AM CDT) Anatomical Region Laterality Modality Body N/A Radiographic Paola ging Narrative 02/05/2022 12:34 PM CDT Patient Name: Helena Calvo Date of : 1955 Date of scan: 01/31/2022 Bone mineral density was performed on a [employer] Discovery Densitometer. Based on machine cross-calibration and [...] density scan were prepared by Ashley Lemus (R)([facility]) who is accredited by the International Society of Clinical Densitometry. The overall patient assessment and scan interpretation were performed by Consuelo Jones M.D. who is certified by the International Society of Clinical Densitometry. [id number] Evelina Rodriguez PHYSICAL THERAPY AIDES TEACHER IMG DXA PROCEDURES Karen l Result from Last 3 Months or Most Recently Relevant to Health Maintenance Insurance [facility] AETNA MEDICARE GOLD AETNA MEDICARE GOLD Care Teams Bridge Operator Slip Relationship Specialty Start Date End Date Fidencio Obregon DO PCP - General Internal Medicine 05/22/22 Fidencio Obregon DO Surgeon Internal Medicine 03/04/22
--- OUTSIDE RECORDS SUMMARY | 2025-08-31 18:55 | XMS_ITS | Clinical Summary ---
Author Organization [facility] Address [address] [place] [address] Phone Care Team Providers Care Print Color Matcher Name Role Phone StephaniesladeFidencio prince Primary Care [...] Active Active Problems No known active problems Family History Relation Name Status Comments Brother [...] RS (1 of 1 - PCV) 2004 RSV VACCINE (60+ or ) (1 - Risk 50-74 years 1-dose series) 2004 ZOSTER VACCINE (1 of 2) 2004 INFLUENZA VACCINE (#1) 2025 08/22/2023 COVID-19 Vaccine (3 - season) 07/11/202510/2021, 12/29/2020 OSTEOPOROSIS SCREENING 01/31/2027 01/31/2022, 2021 COLORECTAL SCREENING 06/02/2030 06/02/2020 Colorectal Cancer Screening 06/02/2030 Insurance Care Teams Print Color Matcher Relationship Specialty Start Date End Date Fidencio Obregon DO [address] [address] PCP - General Internal Medicine 06/26/23
--- OUTSIDE RECORDS SUMMARY | 2025-08-31 18:55 | XMS_ITS | Clinical Summary ---
Author Organization [facility] Address [address] [place] [id number] Care Team Providers Care Accounting Technician Name Role Phone Unavailable Primary Care Provider [...] COVID-19 Vaccine ( - 2023-2 5 season) 2025 Influenza Adult (#1) 2025 RSV Immunization or 60+ Years (1 - 1-dose 75+ series) 2029 Colorectal Cancer Screening Colonoscopy (10 Years) 06/02/2030 06/02/2020 Hepatitis A Vaccines Aged Out No long er eligible based on patient's age to complete this topic Meningococcal B Vaccine Aged Out No l [...]
--- OUTSIDE RECORDS SUMMARY | 2025-08-31 18:55 | XMS_ITS | Encounter Summary ---
Author Organization [facility] Address [address] [place] [address] Phone Care Team Providers Care Retreader Name Role Phone Fidencio Obregon DO Unavailable [phone] Fidencio Obregon DO Primary Care Provider Encounter Details Date Type Department Care Team (Late st Contact Info) Description 08/30/2025 Telephone [facility] Medicine Pulmonary [address] [facility] 8th [place] [address] [place] [address] Arnoldo Bui CMA Social History Tobacco Use Types Packs/Day Years [...] on file Legal Sex Female 10:35 PM GRAIN SACKER Gender Identity Female 11/29/2022 2:33 PM GRAIN SACKER Sexual Orientation Straight 11/29/2022 2: 33 PM GRAIN SACKER Occupation Industry Job Start Date Job End Date Retired Not on file Not on file Not on file documented as of this encounter Miscellaneous Notes * Telephone Encounter - Arnoldo Bui CMA - 08/30/2025 4:29 PM CDT Patient stated she would give us a call closer to 1 year to schedule her appt. documented in this encounter Plan of Treatment Not on file documented as of this encounter Visit Diagnoses Not on filedocumented in this encounter Care Teams Retreader Relationship Specialty Start Date End Date Fidencio Obregon DO PCP - General Internal Medicine 05/22/22 Fidencio Obregon DO Surgeon Internal Medicine 03/04/22 documented as of this encounter
== END 2025-08-31 14:39 | disposition home or self-care (01) ==
LOC: ANHFOHIMG 14:38
PROVIDERS: PCP Internal Medicine; Visit Provider Clinical Nurse Specialist
DX: M81.0 Age-related osteoporosis without current pathological fracture (principal); M85.89 Other specified disorders of bone density and structure, multiple sites; E03.9 Hypothyroidism, unspecified; Z78.0 Asymptomatic menopausal state; Z13.820 Encounter for screening for osteoporosis
CPT/HCPCS: 36415; 77080; 84439; 84443; 84481